=== PATIENT | female | born 1965 | race Caucasian/White ===

== ENCOUNTER 2019-04-08 13:59 | Inpatient (IN) | payer MEDICARE, SELFPAY ==
[2019-04-08] VITALS (32 sets, daily range): BP systolic 52–122; BP diastolic 28–64
[~2019-04-08] VITALS: Ht 154.9 cm; Wt 167.2 kg
[2019-04-08] MEDS ORDERED: DEXTROSE 50% 50 ML SYRINGE IV PRN (16:00)
[2019-04-08] MEDS ORDERED: GLUCOSE 4 GM CHEW TABLET PO PRN (16:00)
[2019-04-08] MEDS ORDERED: GLUCAGON FOR INJ 1 MG VIAL (J1610) SC PRN (16:00)
--- NOTE | 2019-04-08 16:33 | HPEPDOC ---
[facility] Medical History & Physical Date of Admission Apr 08, 2019 Date of Service: Apr 08, 2019 History and Physical CHIEF COMPLAINT: Shock HISTORY OF PRESENT ILLNESS: Patient is a 54-year-old female who presented to [facility] approximately 48 hours ago history is rather confusing a nd perplexed with many details Sent. It appears as though she had several presentations to the emergency room frequently transferred to [facility] where she has had the majority of her cardiac care completed. Also she recently had a pacemaker placed as well as a enterococcal bacteremia infection for which she was being treated with daptomycin with a PICC line. It appears that she was recently discharged and although a pacemaker lead was not correctly placed this was not addressed secondary to her ongoing bacteremia. She appears to complete a course of antibiotics and was seen recently for removal of her PICC line I have been told verbally that her anticoagulation was held while it was removed and since she has been on Lovenox subcutaneous injections as a bridge until she becomes therapeutic on her Coumadin once again. She reportedly presented to [facility] with abdominal pain. While there story somewhat more confusing with a dropping hemoglobin intermittent fevers hypotension leukocytosis acute renal failure prompting her transfer to our facility at this time. At the time of my visit the patient tells me that she has pain in her left lower quadrant but otherwise. denies weight loss, hair loss, headache, visual changes, chest pain, shortness of breath, cough, muscle aches, worsening arthritis, change in mood] PAST MEDICAL HISTORY: 1. Coronary artery disease Chronic chest pain with chronically elevated troponins status post recent negative cardiac cath. 2. Hypertrophic cardiomyopathy status post septal myomectomy 2. 3. Diastolic congestive heart failure. For obstructive sleep apnea and noncompliant with CPAP 5. Dyslipidemia 6. Diabetes mellitus 7 left bundle branch block 8 mechanical mitral valve replacement status post thrombosis and second mitral valve replacement with bioprosthetic valve 9 chronic kidney disease 10 asthma 11 hypertension 12 hypothyroidism 13 versus leg syndrome 14 gastroesophageal reflux disease 15 anxiety depression 16 ventral hernia 17 atrial fibrillation anticoagulated status post pacer with an appropriately placed lead 18 recent enterococcal bacteremia HOME MEDICATIONS: Please see below. ALLERGIES: Zosyn rash atropine scopolamine high ileostomy and phenobarbital Keflex Nexium morphine Lipitor doxycycline PAST SURGICAL HISTORY: 1. PICC line placement. 2. Permanent pacer placement. 3. Cholecystectomy 4. Hysterectomy 5. Bilateral ankle repair 6. Mitral valve replacement 2 7. Myomectomy 2 8, tonsil and adenoidectomy 9 cardiac stent placement 8 tracheostomy with closure 9 tibial tendon surgery SOCIAL HISTORY: Lives with: with parents, Employment: not working, Tobacco use: Former smoker 20 pack years. ETOH: Denies, Illicit drug use: Tinnitus, Tattoos done unprofessionally: Denies, CODE STATUS: full code FAMILY HISTORY:Reviewed and noncontributory REVIEW OF SYSTEMS: 10 systems reviewed and negative other than HPI PHYSICAL EXAMINATION: VITAL SIGNS: Temperature , pulse , respiratory rate , blood pressure , pulse oximetry % on room air. GENERAL: Super morbidly obese malodorous female sitting up in bed awake alert oriented speaking in complete sentences no acute distress HEENT: Moist mucous membranes difficult to assess for any elevation in CVP poor dentation CARDIOVASCULAR: S1 S2 regular no additional heart sounds appreciated. Distant secondary to body habitus RESPIRATORY: Clear to auscultation bilaterally. Very difficult to assess secondary to body habitus very distant ABDOMINAL: Bowel sounds present abdomen soft tenderness in the left lower quadrant and left flank with some discoloration, bowel sounds distant secondary to body habitus gross anasarca nystatin powder under pannus. EXTREMITIES: No clubbing cyanosis poor nail care, 3+ edema gross anasarca NEUROLOGICAL: Spontaneously moves all 4 extremities cranial 2 through 12 grossly intact no gross focal deficits appreciated PSYCHOLOGICAL: Appropriate LABORATORY DATA: See below. MICROBIOLOGY: Please see below. IMAGING: Non at our facility ASSESSMENT & PLAN: This is a 54 with female transferred from outside facility for shock. PROBLEMS: Respiratory: She is saturating well on room air.. Have any acute issue. She likely has chronic obesity hypoventilation syndrome as well as known obstructive sleep apnea and is noncompliant with CPAP. She has a history of tobacco abuse and is on inhalers at home appears to be at her baseline respiratory status at this time Infectious disease: Shock possibly secondary to sepsis she reportedly had a fever leukocytosis at the outside facility and certainly there is concern for septic shock given her recent history of enterococcus bacteremia requiring prolonged antibiotic therapy and recent discontinuation of that therapy. As such I will provide her with daptomycin and meropenem in order to cover him quite broadly we'll need to obtain the outside culture records from [facility] this we can after they've had time to grow. In the interim we will collect urine cultures here including a GI PCR panel as she did have some abdominal pain and diarrhea at the outside facility. She has been on 12 g of levophed through a peripheral IV during transport at this time we'll attempt to wean it spoken crit ical care for central venous catheter placement. Cardiovascular:Shock: Possibly multifactorial in nature she certainly has a hi story of congestive heart failure with multiple valve replacements 2 as well as hypertrophic cardiomyopathy status post myomectomy. We'll check an echocardiogram she appears be mentating quite well we'll check lactic acid as well. I feel cardiac shock is less likely.. She reportedly recently had a cardiac cath which was essentially unremarkable. She reportedly recently had permanent pacemaker placed with Aleve that is not correctly placed this was not addressed secondary to ongoing bacteremia. She has a history of atrial fibrillation and is currently anticoagulated with Lovenox and Coumadin rate controlled with metoprolol and amiodarone. However there was concern at the outside facility for ongoing bleeding. We'll check hemoglobin and hematocrit as well as INR stat, hold for DVT prophylaxis until more information can be obtained. She has a history of coronary artery disease and hypertrophic myopathy status post mastectomy 2 as well as diastolic congestive heart failure. She is certainly grossly fluid overloaded and started I suspect this is chronic given her fairly benign respiratory status will likely cor pulmonale related to her u ntreated sleep apnea. I will order an echocardiogram and consider inpatient cardiology consultation as needed. She is chronically elevated troponin as well as left bundle branch block which is old. Blood pressure readings are taken from her wrist given her morbid obesity given her good mentation slightly concerned about the accuracy of these readings are begin the weaning her Levothroid as tolerated and will monitor closely for symptoms. She would certainly benefit from diuresis should her blood pressure. Will tolerate this Heme: As outlined above I will hold pharmacological DVT prophylaxis in the setting of possible ongoing bleeding.. Leukocytosis outside facility I'll recheck a CBC here and may be related to an underlying infection. Anemia once again reported at the outside facility she reportedly received 2 units of PRBCs there have to monitor for anemia and workup anemia here if she is in fact anemic. we'll certainly need to obtain outside records from [facility]. Patient was previously on Lovenox bridge until Coumadin became therapeutic once again which she is on chronically. Also normally on aspirin 81 mg daily. There is concern for left flank hematoma I'll recheck a CT scan of the abdomen and pelvis here in our facility Metabolic: The patient reportedly had acute renal failure I suspect may be a cardiorenal syndrome given her gross anasarca baseline creatinine is report from an outside providers approximately 2.2 but she had been 4.2 of late we'll check a BMP here and see what her renal function is running. A CT scan at the outside facility did not demonstrate a documented any hydronephrosis. She is with a Berg catheter at this time. She has chronic hypothyroidism we will continue with her Synthroid. Patient has a history of gout and is normally on allopurinol which I will hold given her acute kidney injury at this time Alimentary: Patient is diabetic she is awake alert oriented I'll provide her with a consistent carb diet as well as sliding scale insulin, she did have some abdominal pain a CT of the abdomen at the outside facility did not reveal any obvious etiology she reportedly had some diarrhea previously as well we are sending a GI PCR panel will monitor her stool output I's and O's and daily weights. Chronic fatty liver as well as dyslipidemia continue with Crestor. Patient has history of gastric esophageal reflux disease and is on Protonix normally. Neurologic: No focal deficits she is awake alert oriented 3 at this time mentating quite well given her hypotension. Patient has chronic pain and is normally on Lyrica as well as OxyIR. She also has known history of restless leg and is on Requip DISPOSITION: Admitted to the medical intensive care unit inpatient status Home Medications Scheduled Diltiazem HCl (Diltiazem 12Hr ER) 60 Mg Cap.er.12h, 60 MG PO DAILY Metoprolol Succinate (Metoprolol Succinate) 50 Mg Tab.er.24h, 100 MG PO BID Scheduled PRN Oxycodone HCl (Oxycodone HCl) 5 Mg Tablet, 5 MG PO TID PRN for PAIN A-FIB/CHADSVASC A-FIB History Current/History of A-Fib/PAF?: Yes Current PO Anticoag Therapy: Yes RADHA NEWTON MD Apr 08, 2019 16:33
--- NOTE | 2019-04-08 16:40 | RO ---
DATE OF PROCEDURE: 04/08/2019 INDICATION: Vasopressor administration. PREPROCEDURE DIAGNOSIS: Septic shock. POSTPROCEDURE DIAGNOSIS: Septic shock. PROCEDURE: Central line. ATTENDING PHYSICIAN: Dr. Lona Higgins CONSENT: Verbal consent was obtained from the patient prior to procedure. Indications, risk and benefits were explained at length. DESCRIPTION OF PROCEDURE: A central line insertion practices form was completed by an independent observer, starting with the first hand wash prior to starting sterile technique. A time-out was performed. Full sterile technique was maintained throughout the procedure, including surgical cap, mask with protective eye wear, full gown and sterile gloves. The patient was placed in Trendelenburg position. The right neck region was prepped using chlorhexidine scrub and draped in a sterile fashion using a fenestrated drape and a sterile probe cover was employed. The right internal jugular (IJ) vein was identified using the ultrasound. Anesthesia was achieved over the vein using 1% lidocaine. Using real-time out of plane guidance, the introducer needle was inserted into the right IJ vein under direct ultrasound visualization. Venous blood was withdrawn. The syringe was removed, and a guidewire was advanced into the introducer needle. The introducer needle was removed over the guidewire. A small incision was made at the skin surface with a scalpel, and a dilator was exchanged over the guidewire. After appropriate dilation was obtained, the dilator was exchanged over the wire for a triple lumen central venous catheter. The wire was removed and the catheter was sutured in place at 17 cm. A sterile chlorhexidine impregnated dressing was placed over the catheter at the insertion site. The patient tolerated the procedure without any hemodynamic compromise. At the time of procedure completion, all ports aspirated and flushed properly. Postprocedure chest x-ray shows the central line with the tip in the appropriate position in the superior vena cava (SVC). There is no pneumothorax. Estimated blood loss is less than 5 mL. MTDD
[2019-04-08] MEDS ORDERED: DILT60CASR PO (16:52)
[2019-04-08] MEDS ORDERED: ENOX120I3 SC ×2 (16:52→17:32)
[2019-04-08] MEDS ORDERED: OXYC-517 PO (16:56)
[2019-04-08] MEDS ORDERED: METO1TAB7 PO (16:56)
[2019-04-08] MEDS ORDERED: diphenhydrAMINE CREAM 30GM TOP PRN (17:00)
[2019-04-08] MEDS ORDERED: PERCOCET 5MG/325MG TAB PO PRN (17:00)
[2019-04-08 17:21] LABS: ALBUMIN 1.9 GM/DL (3.2-5.2); BILIRUBIN,TOTAL 1.1 MG/DL (0.2-1.0); CALCIUM LEVEL 7.1 MG/DL (8.5-10.1); CREATININE FOR GFR 4.16 MG/DL (0.55-1.30); GLOMERULAR FILTRATION RATE 11.8 (>51); TROPONIN I 0.09 NG/ML (< 0.10)
[2019-04-08] MEDS ORDERED: NYST1POW9 TOP (17:23)
[2019-04-08] MEDS ORDERED: CYCL10TA PO (17:23)
[2019-04-08] MEDS ORDERED: ALLO100T PO (17:23)
[2019-04-08] MEDS ORDERED: CELE10TA PO (17:23)
[2019-04-08] MEDS ORDERED: LORA1TAB12 PO (17:23)
[2019-04-08] MEDS ORDERED: PANT-23 PO (17:23)
[2019-04-08] MEDS ORDERED: CURA1CRE2 TOP (17:23)
[2019-04-08] MEDS ORDERED: ONDA4TAB6 PO (17:23)
[2019-04-08] MEDS ORDERED: INSUDET SC (17:23)
[2019-04-08] MEDS ORDERED: LYRI75CA PO (17:23)
[2019-04-08] MEDS ORDERED: LEVO25TA5 PO (17:23)
[2019-04-08] MEDS ORDERED: FURO20TA2 PO ×2 (17:23)
[2019-04-08] MEDS ORDERED: ROPI1TAB PO (17:23)
[2019-04-08] MEDS ORDERED: AMIO200T PO (17:23)
[2019-04-08] MEDS ORDERED: ACIDTAB3 PO (17:23)
[2019-04-08] MEDS ORDERED: ROSU40TA4 PO (17:23)
[2019-04-08] MEDS ORDERED: WARF-58 PO (17:25)
[2019-04-08] MEDS ORDERED: ASPI81TA85 PO (17:31)
[2019-04-08] MEDS ORDERED: VENTAER INH (17:31)
[2019-04-08] MEDS ORDERED: LOVE0.01 SC (17:32)
[2019-04-08] MEDS ORDERED: VITMTA PO (17:33)
--- NOTE | 2019-04-08 18:03 | REPVR ---
EXAM: CT Abdomen and Pelvis Without Contrast EXAM DATE/TIME: 04/08/2019 4:52 PM CLINICAL HISTORY: 54 years old, female; Other: Concern for left flank hematoma; Additional info: Concern for lt flank hematoma. Best images possible due to PT body habitus TECHNIQUE: Imaging protocol: Axial computed tomography images of the abdomen and pelvis without contrast. Coronal and sagittal reformatted images were created and reviewed. Radiation optimization: All CT scans at this facility use at least one of these dose optimization techniques: automated exposure control; mA and/or kV adjustment per patient size (includes targeted exams where dose is matched to clinical indication); or iterative reconstruction. COMPARISON: No relevant prior studies available. FINDINGS: Lungs: There is bibasilar compressive atelectasis. Heart: Dense calcification of the mitral valve annulus. Liver: Normal. No mass. Gallbladder and bile ducts: There has been a cholecystectomy. Pancreas: Normal. No ductal dilation. Spleen: There is mild splenomegaly with a maximum span of 13.5 centimeters. No focal abnormalities demonstrated. Adrenals: Normal. No mass. Kidneys and ureters: Normal. No hydronephrosis. Stomach and bowel: Normal. No obstruction. No mucosal thickening. Appendix: No evidence of appendicitis. Intraperitoneal space: Normal. No free air. No significant fluid collection. Vasculature: The aorta demonstrates mild atherosclerotic calcification. Lymph nodes: Normal. No enlarged lymph nodes. Bladder: Berg catheter within urinary bladder. Reproductive: There has been a hysterectomy. Bones/joints: No acute fracture. No dislocation. Soft tissues: Ovoid hyperdense mass in the anterolateral aspect of the abdominal wall on the left measures 20 x 10 x 10 cm consistent with a acute to subacute hematoma. Exact measurement is limited as portions of the mass are excluded from the field of view. Extensive inflammatory reaction surrounds the hematoma. There is soft tissue edema demonstrated in the abdominal wall, flanks and buttock regions consistent with anasarca. Anterior margin of the left lobe of the liver protrudes through an upper abdominal hernia. IMPRESSION: 1. Ovoid hyperdense mass in the anterolateral aspect of the abdominal wall on the left measures approximately 20 x 10 x 10 cm consistent with an acute to subacute hematoma. Extensive inflammatory reaction surrounds the hematoma. 2. Anasarca. 3. Anterior margin of the left lobe of the liver protrudes through an upper abdominal hernia. 4. There is mild splenomegaly with a maximum span of 13.5 centimeters. No focal abnormalities demonstrated. 5. There has been a cholecystectomy. 6. There has been a hysterectomy. Electronically signed by: Pepito Thompson On 04/08/2019 18:02:55 PM
[2019-04-08] MEDS: HumaLOG INSULIN (NovoLOG) PER UNIT SC SCH ×2 (18:44→21:00)
[2019-04-08] MEDS: MEROPENEM INJ 1 GM in APPROPRIATE DILUENT 1 EA IV SCH (18:45)
[2019-04-08] MEDS: diphenhydrAMINE 50 MG CAP PO PRN (18:47)
--- NOTE | 2019-04-08 19:36 | CCN ---
DATE OF CONSULTATION: 04/08/2019 CHIEF COMPLAINT: Shock. HISTORY OF PRESENT ILLNESS: The patient is a 54-year-old female with a past medical history of coronary artery disease (CAD), hypertrophic cardiomyopathy status post septal myomectomy, diastolic congestive heart failure (CHF), obstructive sleep apnea (SIGIFREDO), noncompliant with continuous positive airway pressure (CPAP), hyperlipidemia, diabetes, history of mitral valve replacement, chronic kidney disease (CKD), asthma, hypertension, hypothyroidism, atrial fibrillation, on anticoagulation, history of provoked pulmonary embolism (PE), who presented initially to [facility] with a complaint of worsening abdominal pain. Patient had recently been admitted with a complaint of sepsis with vancomycin-resistant Enterococcus (VRE) bacteremia, possibly secondary to a urinary tract infection (UTI). She had been transferred to [facility], where most of her care has been. She was treated with daptomycin for enterococcal bacteremia and was discharged home. She presented to the emergency department (ED) a few days later after her discharge with complaints of chest pain with elevated troponins. She was transferred at that time to [facility] her cardiopulmonary physical therapist is associated with and she underwent a cardiac catheterization at that time. There were no stents placed reportedly. During her last admission in [facility] in February, patient also had a pacemaker and defibrillator placed prior to being discharged, and while she was readmitted at [facility] it was discovered that one of her defibrillator wires was disconnected, but because of her ongoing bacteremia, the device was not intervened on. She was discharged with a peripherally inserted central catheter (PICC) line and a continued on daptomycin for the VRE bacteremia. Patient was also discharged on lovenox injections, which she administers herself in her abdomen as well as insulin injections, which she administers in the abdomen. The patient was on the Lovenox and being transitioned to Coumadin for anticoagulation for her atrial fibrillation. The patient then started noticing complaints of increasing abdominal distension in the left lower quadrant and abdominal pain. She also reportedly had a fever of 102.4. The patient was therefore seen in the ED at [facility] and was initially given Zosyn for antibiotics, however, had a possible allergic reaction with total-body itching but no rash seen. The antibiotic was discontinued, and she was given Benadryl with improvement in her symptoms. The patient had also complained of diarrhea earlier and a history of incontinence and while she was at [facility] had a gastrointestinal (GI) panel sent. During this, the patient was also noted to have worsening anemia. Her hemoglobin was reportedly 7 from a baseline of around 10, and she was given 2 units of packed red blood cells (PRBC) without an appropriate response. She was also noted to have continued intermittent fevers as well as leukocytosis, hypotension with lactic acidosis and worsening renal failure with diffuse anasarca and edema. The patient was only given 500 mL normal saline bolus reportedly, given her fluid overload, had peripheral Levophed started for persistent hypotension, was up to apparently 15 mcg per minute. At [facility] they attempted to place a central line with attempts in the internal jugular vein, subclavian vein, and femoral vein, which were unsuccessful. She was therefore transferred with peripheral Levophed to [facility]. Here, patient continues to report some pain in her left lower quadrant but otherwise denies any nausea or vomiting. Has not had any dysuria. She does have a Berg in place. She denies having any chest pain currently. No coughing. No wheezing. She does report some increased lower extremity edema more recently. PAST MEDICAL HISTORY: 1. CAD with a history of reportedly chronically elevated troponins and status post recent cardiac catheterization. 2. Hypertrophic cardiomyopathy status post septal myomectomy times two. 3. Diastolic congestive heart failure (CHF). 4. SIGIFREDO, noncompliant with CPAP. 5. Hyperlipidemia. 6. Diabetes. 7. Left bundle branch block. 8. History of mechanical mitral valve replacement, status post thrombosis with a repeat mitral valve replacement with a bioprosthetic valve. 9. CKD. 10. Asthma. 11. Hypertension. 12. Hypothyroidism. 13. Gastroesophageal reflux disease (GERD). 14. Anxiety/depression. 15. Ventral hernia. 16. Atrial fibrillation status post pacemaker. 17. Provoked PE as per the patient in the setting of surgery. PAST SURGICAL HISTORY: 1. Pacemaker placement. 2. Cholecystectomy. 3. Hysterectomy. 4. Bilateral ankle repair. 5. Mitral valve replacement times two. 6. Myomectomy times two. 7. Tonsillectomy and adenoidectomy. 8. Previous intubation requiring tracheostomy. 8. Tracheostomy status post closure. 9. Tibial tendon surgery. ALLERGIES: ZOSYN, ATROPINE, SCOPOLAMINE, PHENOBARBITAL, KEFLEX, NEXIUM, MORPHINE, LIPITOR, and DOXYCYCLINE. HOME MEDICATIONS: Amiodarone, allopurinol, albuterol, aspirin, Celexa, cyclobenzaprine, furosemide, Levemir, Synthroid, lorazepam as needed, metoprolol, multivitamin, nystatin, Zofran as needed , Lyrica, ropinirole, rosuvastatin, Coumadin, diltiazem, pantoprazole, oxycodone as needed, Lovenox. SOCIAL HISTORY: Former smoker of 20 pack years. Denies history of alcohol use or other drug use. FAMILY HISTORY: Noncontributory. PHYSICAL EXAMINATION: Temperature 99.1, pulse 82, respirations 18, blood pressure 104/45, oxygen saturation 97% on room air. GENERAL: The patient is a morbidly obese female, lying in bed awake and alert in no acute distress and is not using accessory muscles of respiration. The patient is able to speak in complete sentences and respond to questions appropriately. HEENT: Normocephalic, atraumatic. Moist mucous membranes. Unable to appreciate jugular venous distention (JVD) due to the neck habitus. CARDIOVASCULAR: Distant heart sounds, regular rate and rhythm. Normal S1, S2. Unable to appreciate any additional heart sounds. RESPIRATIONS: Distant breath sounds due to body habitus. Clear to auscultation bilaterally anteriorly. ABDOMEN: Obese. There is some asymmetric swelling in the left lower quadrant and flank with edema and slight discoloration and tenderness to palpation. There is also some anasarca and evidence of erythema and likely fungal rash in the intertriginous regions. EXTREMITIES: There is erythema in the bilateral lower extremities with some mild increased warmth and +3 pitting edema bilaterally. There is also some exfoliation of the skin in the feet bilaterally. No blisters noted. LABORATORY DATA: CBC is pending. Chemistry shows sodium 136, potassium 5.0, chloride 102, bicarbonate 26, BUN 48, creatinine 4.16, glucose is 106, lactic acid was 2.5; reportedly at outside hospital lactic acid was in the 3's. Calcium is 7.1. Total bilirubin 1.1, AST 42, ALT 30, alkaline phosphatase is normal. Troponin 0.09. Albumin 1.9. Blood cultures are pending. IMAGING: Chest x-ray done after placement of central line shows median sternotomy wires and a left-sided pacemaker with wires in place. There is a right internal jugular (IJ) triple lumen with the tip in superior vena cava (SVC). There are some mildly increased interstitial markings bilaterally but no focal opacities. There is some atelectasis in the lower lobes bilaterally. CT abdomen and pelvis: Lung windows show atelectasis bilaterally in the lower lobes. There is a Berg catheter within the urinary bladder. There is an ovoid hyperdense mass in the anterolateral aspect of the abdominal wall on the left measuring 20 x 10 x 10 cm, consistent with an acute or subacute hematoma. There is extensive inflammatory reaction surrounding the hematoma. There is diffuse anasarca noted, and the anterior margin the left lobe of the liver protrudes through an upper abdominal hernia. There is mild splenomegaly. ASSESSMENT AND PLAN: Ms. Bergeron is a 54-year-old female with an extensive medical history, including history of hypertrophic cardiomyopathy status post myomectomy, diastolic congestive heart failure (CHF), obstructive sleep apnea (SIGIFREDO), noncompliant with CPAP, diabetes, history of mitral valve replacement with bioprosthetic valve currently, chronic kidney disease (CKD), hypertension, hypothyroidism, atrial fibrillation, on anticoagulation, a history of recent vancomycin-resistant Enterococcus (VRE) bacteremia and pacemaker placement with a disconnected lead who presented [facility] with complaints of increasing abdominal pain and swelling in the left lower quadrant and flank. The patient has been injecting herself with Lovenox as she is bridging to Coumadin for anticoagulation. The patient has developed what appears to be a hematoma in that left flank with possible localized cellulitis in that area. The patient was also noted to have worsening hypotension and anemia, requiring 2 units of PRBC with no appropriate response. The patient required Levophed for her persistent hypotension, as she also appears grossly fluid overloaded and was only given normal saline bolus of approximately 500 mL. The patient does have lactic acidosis in the setting of her shock, most likely secondary to infection, as she also presented with fevers and leukocytosis. She does have a history of urinary tract infection (UTI) and VRE bacteremia, and there is concern that she may have sepsis and possibly a component of septic shock with hypovolemic shock. The patient was also noted to have worsening acute kidney injury (LUZ) on CKD. Her reported baseline creatinine is 1.9, and recently her creatinine has increased to 4. This is likely in the setting of her shock. The patient does have a Berg and is making urine. The patient's fluid overload is likely in the setting of her chronic heart failure and possibly worsening renal failure. - The patient had a right IJ triple-lumen placed for administration of Levophed. Will continue to titrate and wean down Levophed to maintain a mean arterial pressure (MAP) above 65. - Will continue to monitor her lactic acidosis, which appears to be improving. - Would continue with broad-spectrum antibiotics given a reported history of fevers and leukocytosis. Will continue daptomycin and meropenem pending the results of her cultures. patient reportedly had a positive urine culture at [facility]. Would call hospital to follow-up results of her urine culture. - Would check a procalcitonin to trend and monitor for de-escalation of antibiotics. - The patient will likely need a PICC line placed for further venous access, as she is difficult to obtain peripheral IVs. - Will followup echocardiogram and continue to trend troponins. - Can continue with amiodarone for rate control but would hold beta blockers and other antihypertensive medications in the setting of her shock. - Will continue to monitor renal function. She is making good urine output, and so her creatinine may improve with the vasopressor support. - Will continue monitor ins and outs. - She does not have any significant acidosis or electrolyte abnormalities, and while she does appear fluid overloaded, the patient is not in any acute respiratory distress to require emergent dialysis at this time. - Would hold diuretics given her hypotension at this time but would diuresis once the patient is able to tolerate. She is currently saturating well on room air and does not appear to have significant pulmonary edema at this time. - The patient has a history of SIGIFREDO and noncompliance with CPAP. She would likely need a sleep study as an outpatient and initiation of CPAP as an outpatient for her untreated sleep apnea. - Continue to hold anticoagulation, as it reportedly is for atrial fibrillation. Her history of previous PE appeared to be provoked, and she has a bioprosthetic valve at this time. Would continue to monitor her hemoglobin and hematocrit and followup her coagulations. Would transfuse to keep hemoglobin above 7. Deep vein thrombosis (DVT) prophylaxis with sequential compression devices (SCDs). Full code. Total critical care time spent not including any procedures: Approximately 1 hour and 50 minutes. MTDD
[2019-04-08] MEDS: NOREPINEPHRINE BITARTRATE 8 MG in D5W 492 ML IV SCH (20:14)
[2019-04-08] MEDS ORDERED: hydrOXYzine 25 MG TAB PO ONE (20:45)
[2019-04-08] MEDS ORDERED: diphenhydrAMINE INJ 50MG/ML VIAL (J1200) IV ONE (21:30)
[2019-04-08] MEDS: EUCERIN 120GM CREAM TOP PRN (21:53)
[2019-04-09] VITALS (29 sets, daily range): BP systolic 85–132; BP diastolic 48–84
[2019-04-09] MEDS: diphenhydrAMINE 50 MG CAP PO PRN ×4 (00:03→23:51)
[2019-04-09] MEDS: LORazepam 1 MG TAB PO PRN ×2 (00:03→21:44)
[2019-04-09] MEDS: MEROPENEM INJ 1 GM in APPROPRIATE DILUENT 1 EA IV SCH ×3 (02:43→18:35)
[2019-04-09 02:59] LABS: HEMATOCRIT 22.2 % (36.0-47.0); MEAN CORPUSCULAR HEMOGLOBIN 27.8 pg (27.0-33.0); MEAN CORPUSCULAR HGB CONC 30.6 g/dl (32.0-36.5); MEAN CORPUSCULAR VOLUME 90.6 fl (80.0-96.0); PLATELET COUNT, AUTOMATED 196 10^3/uL (150-450); RED BLOOD COUNT 2.45 10^6/uL (4.00-5.40); WHITE BLOOD COUNT 22.1 10^3/uL (4.0-10.0)
[2019-04-09 03:01] LABS: HEMOGLOBIN 6.8 g/dl (12.0-15.5)
[2019-04-09 03:18] LABS: ALBUMIN 1.8 GM/DL (3.2-5.2); BILIRUBIN,TOTAL 1.1 MG/DL (0.2-1.0); CREATININE FOR GFR 4.03 MG/DL (0.55-1.30); GLOMERULAR FILTRATION RATE 12.3 (>51); POTASSIUM SERUM 4.8 MEQ/L (3.5-5.1); TOTAL PROTEIN 5.4 GM/DL (6.4-8.2); TROPONIN I 0.09 NG/ML (< 0.10)
[2019-04-09] MEDS ORDERED: ALBUTEROL 90 MCG/ACT 8GM HFA INHALER INH PRN (07:00)
[2019-04-09] MEDS: AMIODARONE 200 MG TAB (PACERONE) PO SCH (08:21)
[2019-04-09] MEDS: LEVOTHYROXINE 25MCG TABLET (0.025MG) PO SCH (08:22)
[2019-04-09] MEDS: HumaLOG INSULIN (NovoLOG) PER UNIT SC SCH ×4 (08:22→21:00)
[2019-04-09] MEDS: MULTIVITAMINS/MINERALS THERAP 1 TAB PO SCH (08:22)
[2019-04-09] MEDS: PREGABALIN 75 MG CAP(LYRICA) PO SCH ×2 (08:32→21:44)
[2019-04-09] MEDS: CitaloPRAM (CeleXA) 10 MG TABLET PO SCH (08:33)
[2019-04-09] MEDS: NOREPINEPHRINE BITARTRATE 8 MG in D5W 492 ML IV SCH (08:33)
[2019-04-09] MEDS: DAPTOmycin 500 MG in NS 50 ML IV SCH (08:34)
[2019-04-09] MEDS: NYSTATIN 100,000 UNITS/GM TOPICAL PWD 15 GM TOP SCH ×2 (09:00→21:44)
[2019-04-09] MEDS ORDERED: ROSUVASTATIN 10 MG TAB (CRESTOR) PO SCH (09:00)
[2019-04-09 09:47] LABS: HEMATOCRIT 23.1 % (36.0-47.0); HEMOGLOBIN 7.3 g/dl (12.0-15.5)
--- NOTE | 2019-04-09 09:58 | ECHO ---
DATE OF PROCEDURE: 04/08/2019 AGE: 54 GENDER: Female. HEIGHT: 61 inches. WEIGHT: 372 pounds. BODY SURFACE AREA: 2.45 meters squared LOCATION: Inpatient ICU, room 3202. REFERRING PHYSICIAN: Dr. Annabella Romero INDICATION: Congestive heart failure (CHF). Mitral valve disorder (post valve replacement). MEASUREMENTS 2-D MEASUREMENTS: RV - 4.4 cm LV - 4.5 cm Septum 1.2 cm Posterior wall 1.2 cm Aortic root 3.1 cm LA - 5.5 cm LVEF 55%? DOPPLER MEASUREMENTS: AV - 1.56 m/s LVOT - 0.89 m/s LVOT diameter 2.0 cm MV-E 2.0 Mean MV gradient 7 mmHg PV - 0.68 m/s Pulmonary artery acceleration time 99 ms RVSP 49 - 54 mmHg IVC - 2.2 cm COMMENTS: Sinus tachycardia with left bundle branch block. Technically difficult study in light of the patient's body habitus but some diagnostically useful information was still obtained. M-mode and two-dimensional echocardiography was performed with pulsed, continuous wave, color flow and tissue Doppler studies. Mild concentric left ventricle hypertrophy with septal wall motion abnormality, yet minimally impaired global resting systolic function. Prominently dilated left atrium. At least mildly dilated right ventricle with normal right ventricular wall motion and Doppler evidence of at least moderate pulmonary hypertension. Moderately dilated right atrium with IVC size upper limits of normal to slightly increased suggestive of an elevated central venous pressure. Aortic valvular sclerosis without obvious functional valvular abnormality. Normal aortic root size. Bioprosthetic mitral valve with visible cusp motion and no obvious valvular dysfunction. Normal appearing tricuspid valve with mild insufficiency. No separate intracardiac mass or pericardial effusion. Could not rule out a valvular vegetation in light of the technically difficult study. If endocarditis was suspect, a transesophageal echocardiogram would be necessary.
--- NOTE | 2019-04-09 09:59 | REP ---
CHEST, PORTABLE: AP portable view of the chest is performed. I have no prior study for comparison. There is cardiomegaly with vascular congestion. Increased interstitial markings probably represents mild interstitial edema. Multiple sternal wires are present. There is a left pacemaker. There is a right central venous catheter with the tip in the superior vena cava. There is no pneumothorax. Electronically Signed by Rey Narayan MD 04/11/2019 11:41 A
[2019-04-09 10:02] LABS: INR 1.32; PROTHROMBIN TIME 16.1 SECONDS (11.8-14.0)
--- NOTE | 2019-04-09 10:22 | ECGEPIP ---
[facility] Test Date: 2019-04-08 Pat Name: ABHI BARCLAY Department: Room: [place] [address] Gender: Female Senior Clinical Data Analyst: LUIS CARLOS : 1965 Requested By: RADHA NEWTON Order Number: [id number] [place] MD: Farzad Del Rosario Measurements Intervals [place] Rate: 101 P: 263 CT: 138 QRS: 4 QRSD: 174 T: 151 QT: 434 QTc: 565 Interpretive Statements Probable junctional tachycardia Low QRS complex voltage in the limb leads Left bundle branch block Comparison tracing not on file Electronically Signed on 04-09-2019 10:22:03 EDT by Farzad Del Rosario
[2019-04-09 10:45] LABS: THYROID STIMULATING HORMONE 1.68 uIU/ML (0.358-3.740)
[2019-04-09] MEDS: PERCOCET 5MG/325MG TAB PO PRN ×3 (11:03→23:51)
[2019-04-09] MEDS ORDERED: NOREPINEPHRINE BITARTRATE 8 MG in D5W 492 ML IV SCH (14:19)
--- NOTE | 2019-04-09 14:27 | CCN ---
DATE: 04/09/2019 The patient was seen and examined this morning during bedside rounds. Overnight her hemoglobin was noted to be 6.8 and the patient continued to be on Levophed for blood pressure support. Therefore, she was transfused one split unit of packed red blood cells (PRBCs) slowly to help with weaning off of the vasopressor. After her transfusion, the patient was able to be weaned down to Levophed currently at 2 mcg per minute. This morning she continues to report abdominal pain in her left lower quadrant. She denies any chest pain. No shortness of breath. No coughing or wheezing. She denies nausea or vomiting. The patient was also on nasal cannula overnight as she was noted to desaturate with sleeping. When she is awake, she is saturating 98-100% on room air. PHYSICAL EXAM: Temperature 97.9, pulse 102, respirations 18, blood pressure 103/52, O2 sat 100% on room air. Input 580 mL, output 350 mL. GENERAL: The patient is a morbidly obese female lying in bed, awake and alert, in no acute distress. Is not using accessory muscles for respiration. The patient is alert and oriented times three and able to the respond to questions appropriately. HEENT: Normocephalic, atraumatic. Moist mucous membranes. Unable to appreciate jugular venous distention (JVD) due to the neck habitus. CARDIOVASCULAR: Distant heart sounds regular rate and rhythm. Normal S1,S2. Unable to appreciate any additional heart sounds. RESPIRATIONS: Distant breath sounds due to body habitus, but clear to auscultation bilaterally. No wheezing, rales or rhonchi. ABDOMEN: Abdomen is obese. There is asymmetric swelling of the left lower quadrant and flank with edema and tenderness to palpation with some slight discoloration. There is generalized anasarca and some evidence of fungal rash in her intertriginous regions. EXTREMITIES: There is erythema in the bilateral lower extremities and +3 pitting edema bilaterally with some mildly increased warmth. LABORATORY DATA: The CBC from yesterday evening: WBC 22.1, hemoglobin 6.8, platelets 196. Repeat CBC is pending. Chemistry: Sodium is 134, potassium 4.8, chloride 101, bicarb 25, BUN 50, creatinine 4.03. Glucose is 144. Lactic acid trending down to 1.7. Total bilirubin 1.1, AST 39, ALT 29, alk phos 83, albumin is 1.8. ASSESSMENT/PLAN: Ms. Bergeron is a 54-year female with an extensive medical history including hypertrophic cardiomyopathy status post myomectomy, diastolic congestive heart failure (CHF), obstructive sleep apnea (SIGIFREDO), noncompliant with CPAP, diabetes, history of mitral valve bioprosthetic replacement, chronic kidney disease (CKD), hypertension, hypothyroidism, atrial fibrillation on anticoagulation, history of recent vancomycin-resistant enterococci (VRE) bacteremia and a pacemaker placement with a disconnected lead, who presented with increased abdominal pain and swelling in the left lower quadrant and flank. The patient was found to be hypertensive requiring vasopressor support for her blood pressure. She was also noted have fevers and leukocytosis with a possible cellulitis or versus UTI. The patient's shock is likely a combination of likely, a combination of sepsis as well as hypovolemic from blood loss. She was also found to have worsening acute kidney injury (LUZ) on and increased anasarca and edema. The patient was transferred to [facility] for further management. Overnight, she received another unit of PRBC, had previously received 2 units of PRBC at the other outside hospital. With the blood transfusion, we have been able to wean down on her Levophed to 2 mcg per minute. - Continue with the weaning down Levophed and will titrate off if possible. Will maintain a MAP above 65. - The patient's lactic acidosis has resolved currently. - Continue with broad-spectrum antibiotics with daptomycin and meropenem following the results of her blood cultures. The patient also reportedly had a positive urine culture at [facility], would call the hospital to followup the results of her urine culture. - Followup the procalcitonin and continue to trend for de-escalation of antibiotics. - Will followup echocardiogram. - Continue with amiodarone for rate control but would continue to hold beta blockers and other antihypertensive medications currently in the setting of her shock. - The patient does have evidence of fluid overload and edema. She was on 40 mg of Lasix in the morning and 20 mg in the evening at home. As her blood pressures are improved, would give the patient a dose of Lasix today for diuresis with 40 mg IV and continue to monitor her blood pressure and urine output. - Continue to monitor her renal function. The patient's creatinine is stable currently and she continues to make urine. Would continue to renally dose her medications. - Continue to monitor ins and outs. - Continue to monitor her electrolytes and replete as needed. The patient does not have any significant acidosis or electrolyte abnormality that would require emergent dialysis at this time. - The patient was noted to desaturate overnight while sleeping due to her history of SIGIRFEDO. She is not compliant with CPAP. She was given nasal cannula oxygenation overnight and in the morning when awake, she is saturating well on room air. The patient will need followup as an outpatient for sleep study if she is interested. - Continue to hold anticoagulation as it is reportedly for atrial fibrillation and with evidence of her hematoma. Would continue to followup her hemoglobin and hematocrit after her transfusion. Would transfuse to keep hemoglobin above 7. Deep venous thrombosis (DVT) prophylaxis with sequential compression stockings (SCDs). FULL CODE. Total critical care time spent not including procedures approximately 40 minutes.
[2019-04-09 17:08] LABS: HEMOGLOBIN 7.2 g/dl (12.0-15.5)
--- NOTE | 2019-04-09 17:35 | IPNPDOC ---
Date Seen The patient was seen on 04/09/19. Progress Note SUBJECTIVE: Patient is a 54-year-old female with a past medical history of coronary artery disease (CAD), hypertrophic cardiomyopathy status post septal myomectomy, diastolic congestive heart failure (CHF), SIGIFREDO, noncompliant with CPAP, history of mitral valve replacement, CKD, atrial fibrillation on anticoagulation, history of provoked PE, who presented initially to [facility] with a complaint of worsening abdominal pain. Patient was seen and examined this morning laying on her back. She is currently getting 1 packed RBC for hemoglobin was 6.8. She continues to complaints of discomfort in her lower abdomen. Currently has a Berg in place and not cloudy. Patient denies fevers chills night sweats nausea vomiting. Admits to abdominal pain. Overnight was reported patient was slightly pruritic in the lower abdomen and lower extremities, was prescribed Benadryl which provided some relief. OBJECTIVE PHYSICAL EXAMINATION: VITAL SIGNS: Please see below. GENERAL: Super morbidly obese malodorous female laying in bed awake alert oriented speaking in complete sentences no acute distress HEENT: Moist mucous membranes difficult to assess JVD and very poor dentition CARDIOVASCULAR: Distant secondary to body habitus difficult to assess. RESPIRATORY: Clear to auscultation bilaterally audible wheezing or rhonchi as well. Difficult to assess truly because of very large body habitus ABDOMINAL: soft tenderness in the left lower quadrant and left flank with some discoloration, bowel sounds distant secondary to very large body habitus, large pennculus slightly erythematous and warm. Bowel sounds distant secondary to body habitus g EXTREMITIES: No clubbing cyanosis 3+ edema gross anasarca, slightly erythematous bilaterally but nontender to touch. NEUROLOGICAL: Spontaneously moves all 4 extremities cranial 2 through 12 grossly intact no gross focal deficits appreciated PSYCHOLOGICAL: Appropriate LABORATORY DATA, IMAGING STUDIES, MICROBIOLOGY: Please see below. DVT prophylaxis ordered?:Matthieu ASSESSMENT AND PLAN: This is a 54-year-old female with a past medical history of coronary artery disease (CAD), hypertrophic cardiomyopathy status post septal myomectomy, diastolic congestive heart failure (CHF), SIGIFREDO, noncompliant with CPAP, history of mitral valve replacement, CKD, atrial fibrillation on anticoagulation, history of provoked PE, who presented initially to [facility] with a complaint of worsening abdominal pain. PROBLEMS: Shock: possible septic shock unlikely cardiogenic shock. -possibly multifactorial; history of congestive heart failure with multiple valve replacements 2 , hypertrophic cardiomyopathy status post myomectomy, cor pulmonale secondary to untreated obstructive sleep apnea and positive UTI -Leukocytosis and reported fevers at previous hospital -echocardiogram pending -Blood culture Cultures 2 pending -Urine cultures from [facility] returned positive for Klebsiella sensitive to Meropenem, faxing results -Continue meropenem and daptomycin -weaning Levothroid (maintian map >65) monitor closely for symptoms and will benefit from diuretic once weaned, possibly tomorrow Recent VRE bacteremia -Possible according in [facility]. on home daptomycin will continue -need to obtain records to verify -Continue with daptomycin until repeat blood cultures and records have been verified. UTI -Berg in place -Urine cultures from [facility] returned positive for Klebsiella sensitive to Meropenem Acute blood loss anemia possibly secondary to large hematoma in the abdomen -2 units of PRBC at [facility] -H&H recheck 6.8 this a.m. -Status post 1 unit packed RBC this a.m. -Running at a slow rate because of history of congestive heart failure -recheck Coronary artery disease Chronic chest pain with chronically elevated troponins status post recent negative cardiac cath. -Hold aspirin 81 mg Hypertrophic cardiomyopathy status post septal myomectomy 2. Diastolic congestive heart failure -unsure of baseline EF: -Hold home furosemide dose Obstructive sleep apnea -noncompliant with CPAP Dyslipidemia -Hold Rosusvastatin 40 mg daily for it interact with daptomycin Diabetes mellitus -Insulin sliding scale -FSBS ah & qhs Left bundle branch block Hx of mechanical mitral valve replacement status post thrombosis and second mitral valve replacement with bioprosthetic valve -Bridging to warfarin with Lovenox injections -Hold all anticoagulation Chronic kidney disease -baseline creatine: unsure -downtrending History of gout Hold allopurinol Asthma Hypertension -Hold home furosemide dose -Hold diltiazem extended release 60 mg by mouth daily and once pressure improve can consider restarting Hypothyroidism -c/w synthyroid 25mcg daily Restless leg syndrome -c/w Requip and Lyrica Gastroesophageal reflux disease -Help home Protonix Anxiety depression -c/w Celexa and lorazepam Hx of Ventral hernia Atrial fibrillation anticoagulated status post pacer with an appropriately placed lead -Hold anticoagulation -C/w amiodarone -Hold diltiazem extended release 60 mg by mouth daily and once pressure improve can consider restarting Obese -Morbidly obese -BMI 71.6 -Complicates care DVT prophylaxis. -TEDs and sequentials I saw and evaluated the patient. I agree with the findings and plan of care as documented in the above note VS, I&O, 24H, Fishbone Vital Signs/I&O Vital Signs Date Time Temp Pulse Resp B/P (MAP) Pulse Ox O2 Delivery O2 Flow Rate FiO2 04/09/19 11:03 20 04/09/19 08:48 97.2 101 103/53 (70) 94 04/09/19 08:00 2.0 I&O- Last 24 Hours up to 6 AM 04/09/19 06:00 Intake Total 848 ml Output Total 625 ml Balance 223 ml Laboratory Data 24H LABS Laboratory Tests 2 04/08/19 16:28: Anion Gap 8, Glomerular Filtration Rate 11.8L, Lactic Acid Level 2.5*H, Blood Urea Nitrogen 48H, Creatinine 4.16H, Sodium Level 136, Potassium Level 5.0, Chloride Level 102, Carbon Dioxide Level 26, Calcium Level 7.1L, Aspartate Amino Transf (AST/SGOT) 42H, Alanine Aminotransferase (ALT/SGPT) 30, Alkaline Phosphatase 72, Total Bilirubin 1.1H, Total Protein 5.0L, Albumin 1.9L, Troponin I 0.09, Albumin/Globulin Ratio 0.61L 04/08/19 18:35: Bedside Glucose (Misc Panel) 75 04/08/19 20:44: Troponin I 0.09, Lactic Acid Followup at 4 Hours 1.7 04/08/19 21:19: Bedside Glucose (Misc Panel) 146H 04/09/19 02:44: Nucleated Red Blood Cells % (auto) 0.4H, Anion Gap 8, Glomerular Filtration Rate 12.3L, Blood Urea Nitrogen 50H, Creatinine 4.03H, Sodium Level 134L, Potassium Level 4.8, Chloride Level 101, Carbon Dioxide Level 25, Calcium Level 7.0L, Aspartate Amino Transf (AST/SGOT) 39H, Alanine Aminotransferase (ALT/SGPT) 29, Alkaline Phosphatase 83, Total Bilirubin 1.1H, Total Protein 5.4L, Albumin 1.8L, Troponin I 0.09, Albumin/Globulin Ratio 0.50L, Thyroid Stimulating Hormone (TSH) 1.680 04/09/19 09:26: Prothrombin Time 16.1H, Prothromb Time International Ratio 1.32 04/09/19 12:04: Bedside Glucose (Misc Panel) 118H CBC/BMP Laboratory Tests 04/08/19 16:28 Calcium Level 7.1 L, Aspartate Amino Transf (AST/SGOT) 42 H, Alanine Aminotransferase (ALT/SGPT) 30, Alkaline Phosphatase 72, Total Bilirubin 1.1 H, Total Protein 5.0 L, Albumin 1.9 L 04/09/19 02:44 Calcium Level 7.0 L, Aspartate Amino Transf (AST/SGOT) 39 H, Alanine Aminotransferase (ALT/SGPT) 29, Alkaline Phosphatase 83, Total Bilirubin 1.1 H, Total Protein 5.4 L, Albumin 1.8 L, Red Blood Count 2.45 L, Mean Corpuscular Volume 90.6, Mean Corpuscular Hemoglobin 27.8, Mean Corpuscular Hemoglobin Conc ent 30.6 L, Red Cell Distribution Width 20.1 H 04/09/19 09:26 Microbiology Microbiology 04/08/19 Blood Culture, Received Pending 04/08/19 Blood Culture, Received Pending TODD AN DO Apr 09, 2019 16:31 RADHA NEWTON MD Apr 10, 2019 15:02
[2019-04-09] MEDS: rOPINIRole 1MG TAB PO SCH (21:44)
[2019-04-10] VITALS: BP 132/58
[2019-04-10 00:14] LABS: HEMATOCRIT 23.3 % (36.0-47.0); HEMOGLOBIN 7.2 g/dl (12.0-15.5)
[2019-04-10] MEDS: MEROPENEM INJ 1 GM in APPROPRIATE DILUENT 1 EA IV SCH ×3 (03:56→18:09)
[2019-04-10 04:00] VITALS: BP 103/53
[2019-04-10 04:15] LABS: HEMATOCRIT 22.7 % (36.0-47.0); MEAN CORPUSCULAR HGB CONC 30.8 g/dl (32.0-36.5); MEAN CORPUSCULAR VOLUME 90.8 fl (80.0-96.0); PLATELET COUNT, AUTOMATED 138 10^3/uL (150-450); WHITE BLOOD COUNT 14.1 10^3/uL (4.0-10.0)
[2019-04-10 04:44] LABS: ALBUMIN 1.9 GM/DL (3.2-5.2); BILIRUBIN,TOTAL 0.9 MG/DL (0.2-1.0); CALCIUM LEVEL 7.5 MG/DL (8.5-10.1); CREATININE FOR GFR 3.49 MG/DL (0.55-1.30); GLOMERULAR FILTRATION RATE 14.5 (>51); POTASSIUM SERUM 4.6 MEQ/L (3.5-5.1); TOTAL PROTEIN 5.7 GM/DL (6.4-8.2)
[2019-04-10] MEDS: LEVOTHYROXINE 25MCG TABLET (0.025MG) PO SCH (06:09)
[2019-04-10] MEDS ORDERED: FUROSEMIDE 40 MG/4 ML VIAL (J1940) IV ONE (07:15)
[2019-04-10] MEDS: diphenhydrAMINE 50 MG CAP PO PRN ×2 (07:35→20:41)
[2019-04-10] MEDS: HumaLOG INSULIN (NovoLOG) PER UNIT SC SCH ×4 (07:36→20:33)
[2019-04-10 08:00] VITALS: BP 92/66
[2019-04-10] MEDS: DAPTOmycin 500 MG in NS 50 ML IV SCH (08:38)
[2019-04-10] MEDS: CitaloPRAM (CeleXA) 10 MG TABLET PO SCH (08:38)
[2019-04-10] MEDS: MULTIVITAMINS/MINERALS THERAP 1 TAB PO SCH (08:39)
[2019-04-10] MEDS: NYSTATIN 100,000 UNITS/GM TOPICAL PWD 15 GM TOP SCH ×2 (08:39→20:42)
[2019-04-10] MEDS: PREGABALIN 75 MG CAP(LYRICA) PO SCH ×2 (08:39→20:41)
[2019-04-10] MEDS: AMIODARONE 200 MG TAB (PACERONE) PO SCH (08:39)
--- NOTE | 2019-04-10 11:54 | IPNPDOC ---
Date Seen The patient was seen on 04/10/19. Progress Note SUBJECTIVE: Patient reports to me that she is feeling significantly better today. The pain in her left flank is improving but certainly not resolved otherwise patient denies chest pain, shortness breath, nausea, vomiting, fevers, chills OBJECTIVE PHYSICAL EXAMINATION: VITAL SIGNS: Please see below GENERAL: Super morbidly obese malodorous female sitting up in bed awake alert oriented speaking in complete sentences no acute distress HEENT: Moist mucous membranes difficult to assess for any elevation in CVP poor dentation CARDIOVASCULAR: S1 S2 regular no additional heart sounds appreciated. Distant secondary to body habitus RESPIRATORY: Clear to auscultation bilaterally. Very difficult to assess secondary to body habitus very distant ABDOMINAL: Bowel sounds present abdomen soft tenderness in the left lower quadrant and left flank with some discoloration, bowel sounds distant secondary to body habitus gross anasarca. EXTREMITIES: No clubbing cyanosis poor nail care, 3+ edema, gross anasarca NEUROLOGICAL: Spontaneously moves all 4 extremities cranial 2 through 12 grossly intact no gross focal deficits appreciated PSYCHOLOGICAL: Appropriate LABORATORY DATA, MICROBIOLOGY: Please see below. IMAGING STUDIES: Chest x-ray:There is cardiomegaly with vascular congestion. Increased interstitial markings probably represents mild interstitial edema. Multiple sternal wires are present. There is a left pacemaker. There is a right central venous catheter with the tip in the superior vena cava. There is no pneumothorax. CT abdomen and pelvis:1. Ovoid hyperdense mass in the anterolateral aspect of the abdominal wall on the left measures approximately 20 x 10 x 10 cm consistent with an acute to subacute hematoma. Extensive inflammatory reaction surrounds the hematoma. 2. Anasarca. 3. Anterior margin of the left lobe of the liver protrudes through an upper abdominal hernia. 4. There is mild splenomegaly with a maximum span of 13.5 centimeters. No focal abnormalities demonstrated. 5. There has been a cholecystectomy. 6. There has been a hysterectomy. Echocardiogram: Sinus tachycardia with left bundle branch block. Technically difficult study in light of the patient's body habitus but some diagnostically useful information was still obtained. M-mode and two-dimensional echocardiography was performed with pulsed, continuo us wave, color flow and tissue Doppler studies Mild concentric left ventricle hypertrophy with septal wall motion abnormality, yet minimally impaired global resting systolic function. Prominently dilated left atrium. At least mildly dilated right ventricle with normal right ventricular wall motio n and Doppler evidence of at least moderate pulmonary hypertension. Moderately dilated right atrium with IVC size upper limits of normal to slightly increased suggestive of an elevated central venous pressure. Aortic valvular sclerosis without obvious functional valvular abnormality. Normal aortic root size. Bioprosthetic mitral valve with visible cusp motion and no obvious valvular dysfunction. Normal appearing tricuspid valve with mild insufficiency. No separate intracardiac mass or pericardial effusion. Could not rule out a valvular vegetation in light of the technically difficult study. If endocarditis was suspect, a transesophageal echocardiogram would be necessary. ASSESSMENT AND PLAN: This is a 54-year-old female who presented with shock and left flank hematoma PROBLEMS: 1. Shock: Likely septic possibly secondary to urinary source I was informed today [facility]. She also reportedly recently had hospitalization with VRE bacteremia which is an additional etiology. The time. She is on empiric daptomycin and meropenem will follow the cultures obtain records from [facility] and [facility] culture data and narrow antibiotic spectrum as appropriate. Cardiogenic shock is less likely she isn't decompensated heart failure with gross anasarca hemodynamics have stabilized she is no longer on Levophed I will begin diuresis and her critical care consult greatly appreciated. Hemorrhagic shock again less likely. To be fairly stable I'll monitor hemoglobin closely and transfuse for hemoglobin less than 7 I will hold off on any further blood products she is at 1 unit PRBCs since arriving at our facility her pain is appears to be improving clinically her hematoma is resolving albeit slowly. Patient is currently a Berg catheter will keep it in today after beginning diuresis I'll attempt to get her out of bed with PT OT transfer her to a [facility] with telemetry and ideally discontinue her Berg catheter within the next 48 hours 2. Coronary artery disease: Chronic stable no acute issues, chronically elevated troponins status post recent negative cardiac cath. We are holding aspirin 81 mg secondary to acute hematoma. She is on a statin which is currently on hold due to interaction with daptomycin. Patient with chronic left bundle-branch block 3 Hypertrophic cardiomyopathy status post septal myomectomy 2. Acceptable hemodynamics at this time 4. Acutely decompensated Diastolic congestive heart failure and I suspect mostly so right heart failure: I suspect she has significant right heart failure due to noncompliance for her sleep apnea. She is grossly anasarca take but has baseline respiratory status making we were suspicious of right heart failure over left he art failure. She does have diastolic dysfunction. We will begin diuresing her as her blood pressure and hemodynamics allow she certainly has extensive body weight due to fluid retention. 5. Obstructive sleep apnea: Patient reports she is open to be wearing CPAP at her machine is broken at home it has been broken for several years she is open having a sleep study in the future -noncompliant with CPAP 6. Dyslipidemia: As above statin on hold due to interaction with daptomycin 7. Diabetes mellitus: Insulin sliding scale, blood glucose control acceptable 8. Mitral valve disease: History of mechanical mitral valve replacement status post thrombosis and second mitral valve replacement with bioprosthetic valve. Echocardiogram does not reveal any malfunctioning of Colunga's she does not require anticoagulation for her valvular disease 9. Acute on Chronic kidney disease: Baseline is unclear reportedly closer to 2.2 Appears to be improving today we'll monitor should begin diuresis she has impr sukhwinder hemodynamics at this time 10. History of gout: Hold allopurinol in setting of a KCI 11. Asthma: At her baseline respiratory status 12. Hypertension: We'll begin IV diuresis we are holding her rate controlling agent diltiazem restart as needed and blood pressure allows 13. Hypothyroidism: c/w synthyroid 25mcg daily 14. Restless leg syndrome: c/w Requip and Lyrica 15. Gastroesophageal reflux disease: Resume home protonix 16.Anxiety depression:c/w Celexa and lorazepam 17. Atrial fibrillation anticoagulated status post pacer with an inappropriately placed lead, C/w amiodarone, Hold diltiazem extended release 60 mg by mouth daily and once blood pressure improve can consider restarting as needed. Will need outpatient follow-up regarding her pacer lead. Anticoagulation On hold at this time as outlined above 18. Morbidly obese: Complicates care DVT prophylaxis. -TEDs and sequentials DISPOSITION: Transfer out of ICU to MedSurg floor, PT OT, begin likely lengthy diuresis process. VS, I&O, 24H, Fishbone Vital Signs/I&O Vital Signs Date Time Temp Pulse Resp B/P (MAP) Pulse Ox O2 Delivery O2 Flow Rate FiO2 04/10/19 08:00 97.0 103 17 92/66 (75) 99 04/10/19 04:00 2.0 I&O- Last 24 Hours up to 6 AM 04/10/19 06:00 Intake Total 1903.2 ml Output Total 1200 ml Balance 703.2 ml Laboratory Data 24H LABS Laboratory Tests 2 04/09/19 12:04: Bedside Glucose (Misc Panel) 118H 04/09/19 16:38: Bedside Glucose (Misc Panel) 105 04/09/19 21:37: Bedside Glucose (Misc Panel) 150H 04/09/19 22:27: Urine Color YELLOW, Urine Appearance HAZY, Urine pH 5.0, Urine Specific [place] 1.013, Urine Protein NEGATIVE, Urine Glucose (UA) NEGATIVE, Urine Ketones NE GATIVE, Urine Blood NEGATIVE, Urine Nitrite NEGATIVE, Urine Bilirubin NEGATIVE, Urine Urobilinogen 0.2, Urine Leukocyte Esterase 1+H, Urine WBC (Auto) 11H, Urine RBC (Auto) 1, Urine Hyaline Casts (Auto) 0, Urine Bacteria (Auto) 1+H, Urine Squamous Epithelial Cells 0, Urine Sperm (Auto) 04/10/19 04:03: Nucleated Red Blood Cells % (auto) 0.6H, Anion Gap 6L, Glomerular Filtration Rate 14.5L, Blood Urea Nitrogen 57H, Creatinine 3.49H, Sodium Level 134L, Potassium Level 4.6, Chloride Level 100, Carbon Dioxide Level 28, Calcium Level 7.5L, Aspartate Amino Transf (AST/SGOT) 28, Alanine Aminotransferase (ALT/SGPT) 27, Alkaline Phosphatase 106, Total Bilirubin 0.9, Total Protein 5.7L, Albumin 1.9L, Albumin/Globulin Ratio 0.50L CBC/BMP Laboratory Tests 04/09/19 16:47 04/09/19 23:27 04/10/19 04:03 Red Blood Count 2.50 L, Mean Corpuscular Volume 90.8, Mean Corpuscular Hemoglobin 28.0, Mean Corpuscular Hemoglobin Concent 30.8 L, Red Cell Distribution Width 19.6 H, Calcium Level 7.5 L, Aspartate Amino Transf (AST/SGOT) 28, Alanine Aminotransferase (ALT/SGPT) 27, Alkaline Phosphatase 106, Total Bilirubin 0.9, Total Protein 5.7 L, Albumin 1.9 L Microbiology Microbiology 04/08/19 Blood Culture - Preliminary, Resulted No growth after 24 hours . All specim... 04/08/19 Blood Culture - Preliminary, Resulted No growth after 24 hours . All specim... 04/09/19 Urine Culture, Received Pending RADHA NEWTON MD Apr 10, 2019 11:54
[2019-04-10 12:00] VITALS: BP 114/60
[2019-04-10] MEDS: PERCOCET 5MG/325MG TAB PO PRN ×2 (12:00→20:42)
[2019-04-10] MEDS: PANTOPRAZOLE 40MG TAB (PROTONIX) PO SCH (12:02)
[2019-04-10 16:00] VITALS: BP 125/61
[2019-04-10] MEDS: FUROSEMIDE 40 MG/4 ML VIAL (J1940) IV SCH (16:24)
--- NOTE | 2019-04-10 17:51 | CCN ---
DATE: 04/10/2019 The patient was seen and examined this morning during bedside rounds. The patient was out of bed in the chair this morning. She denies any significant shortness of breath. No chest pain. No coughing or wheezing. She continues to have some abdominal pain in the left lower quadrant, although the pain is currently controlled. She has no nausea or vomiting. Patient is saturating well on room air, but does continue to need nasal cannula oxygen at night when she is sleeping and noted to desaturate. She is status post 1 unit of packed red blood cells (PRBC) yesterday with no appropriate response in her repeat hemoglobin. She was able to be weaned off the Levophed yesterday afternoon; however and her blood pressures have remained stable overnight. PHYSICAL EXAM: Temperature 97.7, pulse 102, respirations 20, blood pressure 103/53, oxygen saturation 96% on room air, in 1.7 liters, out 1.1 liters, positive for 546 General: The patient is a morbidly obese female, is sitting in bed awake and alert in no acute distress. Is not using accessory muscles for respiration. She is alert and oriented x3 and able to respond to questions appropriately. HEENT: Normocephalic, atraumatic. Moist mucous membranes. Unable to appreciate jugular venous distension (JVD) due to neck habitus. Cardiovascular: Distant heart sounds, regular rate and rhythm. Normal S1-S2. Unable to appreciate any additional heart sounds. Respirations: Distant breath sounds due to body habitus with possible faint crackles at the bases, but no wheezing or rhonchi. Abdomen is obese. There is anasarca and a asymmetrical swelling in her left lower quadrant with increased edema there and some tenderness to palpation. Extremities: There is +3 pitting edema in the bilateral lower extremities with some erythema noted and mildly increased warmth. LABORATORY: White blood count (WBC) 14.18, hemoglobin 7.0, platelets 138. Chemistry: Sodium is 134, potassium 4.6, chloride 100, bicarbonate 28, BUN 57, creatinine 3.49, glucose is 116. Microbiology: Urinalysis was positive for bacteria, negative for nitrates and positive for leukocyte esterase. Blood cultures are no growth to date. ASSESSMENT/PLAN: Ms. Bergeron is a 54-year-old female with a history of hypertrophic cardiomyopathy status post myomectomy diastolic congestive heart failure (CHF), obstructive sleep apnea (SIGIFREDO) noncompliant with C-PAP, diabetes, history of mitral valve bioprosthetic replacement, chronic kidney disease (CKD), hypertension, hypothyroidism, atrial fibrillation on anticoagulation, history of recent Vancomycin-resistant enterococci (VRE) bacteremia and a pacemaker placement with a disconnected lead, who presented with increased abdominal pain and swelling in her left lower quadrant and flank. The patient was hypotensive requiring vasopressor support for her blood pressure. She was also reported to have fevers and leukocytosis at an outside hospital. The patient was found to have hematoma in her left flank likely in the setting of her Lovenox injections and anticoagulation. The patient likely with a combination of septic shock and hypovolemic shock from blood loss. She was also noted to have worsening acute kidney injury on chronic kidney disease (CKD) with increased anasarca and edema. She was transferred to [facility] for further management. - The patient has been transfused a total of 3 units of PRBC now, two units at an outside hospital and one unit at [facility]. Her hemoglobin has not responded appropriately, but her blood pressures have remained stable and she has been able to be weaned off of the Levophed. - The patient's lactic acidosis has also resolved. - The patient's urine culture from the outside hospital was reportedly positive for Klebsiella pneumonia organisms. Her blood cultures there were no growth to date. The patient's repeat urine culture here is still pending. - Would continue with meropenem pending the sensitivities of Klebsiella and can likely discontinue the daptomycin. The patient likely with a urinary tract infection (UTI). - Will followup her procalcitonin and continue to trend for de-escalation of antibiotics. - The patient's echocardiogram was technically difficult due to her body habitus. She was noted to have mild left ventricular hypertrophy (LVH) with septal wall motion abnormality, but relatively preserved left ventricular systolic function. She did have probably dilated left atrium, as well as a mildly dilated right ventricle (RV) and evidence of at least moderate pulmonary hypertension. Her IVC was also dilated suggesting increased central venous pressure. - Given the patient's echocardiogram, as well as signs of fluid overload, would diurese her with Lasix and continue diuresis if her blood pressure tolerates. - Continue to monitor her input and output. - The patient's renal function is continued to improve. Will followup her renal function with diuresis. - Continue with amiodarone for rate control but will continue to hold beta hanane for now depending on her blood pressure. - Would continue to monitor her hemoglobin and hematocrit and transfuse as needed to maintain a hemoglobin above seven. Continue to hold anticoagulation for her atrial fibrillation given her hematoma. - The patient has a history of obstructive sleep apnea (SIGIFREDO) and she is noncompliant with C-PAP. She can continue with nasal cannula oxygen at night and wean off in the morning when she is awake. She will need followup as an outpatient for possible sleep study if she is interested - The patient will likely need physical therapy (PT) and occupational therapy(OT). She uses a walker at home for ambulation Deep vein thrombosis (DVT) prophylaxis with SCDs. Full code. Total critical care time spent, not including procedures, approximately 35 minutes. MTDD
[2019-04-10 18:24] LABS: HEMATOCRIT 24.7 % (36.0-47.0); HEMOGLOBIN 7.5 g/dl (12.0-15.5)
[2019-04-10 20:00] VITALS: BP 108/53
[2019-04-10] MEDS: rOPINIRole 1MG TAB PO SCH (20:41)
[2019-04-11] MEDS: MEROPENEM INJ 1 GM in APPROPRIATE DILUENT 1 EA IV SCH ×3 (03:49→20:08)
[2019-04-11 04:00] VITALS: BP 134/63
[2019-04-11] MEDS: LEVOTHYROXINE 25MCG TABLET (0.025MG) PO SCH (05:12)
[2019-04-11] MEDS: PERCOCET 5MG/325MG TAB PO PRN ×3 (05:13→20:08)
[2019-04-11 05:18] LABS: ALBUMIN 1.9 GM/DL (3.2-5.2); BILIRUBIN,TOTAL 0.9 MG/DL (0.2-1.0); CALCIUM LEVEL 8.1 MG/DL (8.5-10.1); CREATININE FOR GFR 2.91 MG/DL (0.55-1.30); GLOMERULAR FILTRATION RATE 17.9 (>51); POTASSIUM SERUM 4.7 MEQ/L (3.5-5.1)
[2019-04-11 07:01] LABS: HEMATOCRIT 23.1 % (36.0-47.0); MEAN CORPUSCULAR HEMOGLOBIN 28.3 pg (27.0-33.0); MEAN CORPUSCULAR HGB CONC 30.3 g/dl (32.0-36.5); MEAN CORPUSCULAR VOLUME 93.5 fl (80.0-96.0); PLATELET COUNT, AUTOMATED 142 10^3/uL (150-450); RED BLOOD COUNT 2.47 10^6/uL (4.00-5.40); WHITE BLOOD COUNT 14.6 10^3/uL (4.0-10.0)
[2019-04-11 08:00] VITALS: BP 116/59
[2019-04-11] MEDS: FUROSEMIDE 40 MG/4 ML VIAL (J1940) IV SCH ×2 (08:21→16:34)
[2019-04-11] MEDS: DAPTOmycin 500 MG in NS 50 ML IV SCH (08:21)
[2019-04-11] MEDS: HumaLOG INSULIN (NovoLOG) PER UNIT SC SCH ×4 (08:22→21:00)
[2019-04-11] MEDS: PREGABALIN 75 MG CAP(LYRICA) PO SCH ×2 (08:22→21:59)
[2019-04-11] MEDS: AMIODARONE 200 MG TAB (PACERONE) PO SCH (08:22)
[2019-04-11] MEDS: MULTIVITAMINS/MINERALS THERAP 1 TAB PO SCH (08:22)
[2019-04-11] MEDS: PANTOPRAZOLE 40MG TAB (PROTONIX) PO SCH (08:22)
[2019-04-11] MEDS: NYSTATIN 100,000 UNITS/GM TOPICAL PWD 15 GM TOP SCH ×2 (08:23→21:59)
[2019-04-11] MEDS: CitaloPRAM (CeleXA) 10 MG TABLET PO SCH (08:23)
[2019-04-11] MEDS: EUCERIN 120GM CREAM TOP PRN ×2 (09:26→21:59)
--- NOTE | 2019-04-11 10:02 | CCN ---
DATE OF SERVICE: 04/11/2019 The patient was seen and examined this morning during bedside rounds. The patient was sitting in a chair this morning at bedside. She denied any shortness of breath. No chest pain. No coughing or wheezing. She reports her abdominal pain in the left lower quadrant is controlled with pain medications. She has no nausea or vomiting. She did not receive any further transfusion yesterday. Her blood pressures have remained stable. PHYSICAL EXAMINATION: Temperature 98.3, pulse 100, respirations 24, blood pressure 116/59, O2 sat 96% on room air. Ins 2.9 liters and out 2.5 liters, net positive approximately 300 mL. General: The patient is a morbidly obese female who is sitting in the chair awake, alert and in no acute distress. She is not using any accessory muscles for respiration. HEENT: Normocephalic, atraumatic. Moist mucous membranes. Unable to appreciate jugular venous distention (JVD) due to neck habitus. Cardiovascular: Distant heart sounds, regular rate and rhythm. Normal S1 and S2. Unable appreciate any additional heart sounds. Respirations: She had distant breath sounds due to body habitus with possible faint crackles at the bases, but no wheezing or rhonchi. Abdomen is obese. There is anasarca with increased pitting edema and tenderness on the left lower quadrant with some slightly asymmetrical appearance Extremities: There is +3 to 4 pitting edema in the bilateral lower extremities with erythema noted bilaterally. LABORATORY DATA: WBC 14.6, hemoglobin 7.0 and platelets 142. Chemistry: Sodium is 137, potassium 4.7, chloride is 101, bicarb 28, BUN 51, creatinine 2.91, glucose is 131. Microbiology: Urine culture is pending. Blood cultures are no growth to date. ASSESSMENT/PLAN: Ms. Bergeron is a 54-year female with history of hypertrophic cardiomyopathy status post myomectomy, diastolic congestive heart failure (CHF), obstructive sleep apnea (SIGIFREDO) noncompliant C-PAP, diabetes, history of mitral valve bioprosthetic replacement, chronic kidney disease (CKD), hypertension, hypothyroidism, atrial fibrillation on anticoagulation, history of recent vancomycin-resistant Enterococcus (VRE) bacteremia and pacemaker placement with a disconnected lead, who presented initially to an outside hospital with increased abdominal pain and swelling in her left lower quadrant and flank. The patient was hypotensive, in shock, requiring vasopressor support. She was reportedly found to have fevers and leukocytosis at the outside hospital as well as with a positive urine culture. The patient had also been giving herself Lovenox injections for anticoagulation in the left flank and she likely had a component of hypovolemic shock from blood loss combined with septic shock, possibly secondary to urinary tract infection (UTI). The patient was also found to have worsening acute kidney injury (LUZ) on CKD with increased anasarca and edema. She was transferred to [facility] for further management. - The patient is status post a total of 3 units of packed red blood cell (PRBC). Her hemoglobin has remained stable around 7 and she had been able to been weaned off of vasopressors. - Will continue to monitor her hemoglobin/hematocrit (H/H) and transfuse as needed for hemoglobin above 7. - The patient's anticoagulation is on hold. She was anticoagulated for her atrial fibrillation. She does have a previous history of pulmonary embolism (PE), but it appears to be a provoked PE. Her mitral valve is also a bioprosthetic valve. - Continue antibiotics with meropenem. The patient's outside urine culture reportedly grew Klebsiella, the sensitivities we are still awaiting the results of. Would likely be able to discontinue the daptomycin as her blood cultures at the outside hospital were also negative and suspect the patient had completed her course of antibiotics for her VRE bacteremia as her peripherally inserted central catheter (PICC) line had been removed prior to her rehospitalization. - The patient's procalcitonin was very high however at 56.45. Would continue to trend and monitor for response to antibiotics and for de-escalation. - The patient was given Lasix yesterday 40 mg IV twice a day for diuresis as she is fluid overloaded on exam and her echo on this admission did show dilated inferior vena cava (IVC) suggesting increased central venous pressure as well as evidence of at least moderate pulmonary hypertension. - Would continue with diuresis. Would likely increase her Lasix as she is still not significantly net negative. - The patient's renal function is continuing to improve. Would continue to follow up her renal function and monitor her ins and outs. - Would give the patient incentive spirometer and continue to encourage out of bed to chair. She will likely need physical therapy for ambulation as she uses a walker at home as well. - The patient is satting well on room air when awake and reportedly desaturates at night, likely due to her history of untreated SIGIFREDO. She can follow up with pulmonary as an outpatient for possible sleep study if she is interested - The patient is planned for PICC line today for venous access, after PICC line placement would be able to remove her central line. DEEP VEIN THROMBOSIS (DVT) PROPHYLAXIS: Sequential compression devices (SCDs). Full code. Total critical care time spent, not including procedures approximately 35 minutes. Please do not hesitate to call if any further questions or concerns. MTDD
[2019-04-11 12:00] VITALS: BP 105/58
[2019-04-11 16:00] VITALS: BP 111/62
--- NOTE | 2019-04-11 17:58 | IPNPDOC ---
Date Seen The patient was seen on 04/11/19. Progress Note SUBJECTIVE: Patient is a 54-year-old female with a past medical history of coronary artery disease (CAD), hypertrophic cardiomyopathy status post septal myomectomy, diastolic congestive heart failure (CHF), SIGIFREDO, noncompliant with CPAP, history of mitral valve replacement, CKD, atrial fibrillation on anticoagulation, history of provoked PE, who presented initially to [facility] with a complaint of worsening abdominal pain. Patient was seen and examined this morning adding on her commode. She states that she's feeling significantly better. Her abdominal pain has improved as well. She does complain of the itching on her abdomen and legs but is not a significant when she originally came in. She denies chest pain, shortness breath, nausea, vomiting, fevers or chills. OBJECTIVE PHYSICAL EXAMINATION: VITAL SIGNS: Please see below. GENERAL: Super morbidly obese malodorous female laying in bed awake alert oriented speaking in complete sentences no acute distress HEENT: Moist mucous membranes difficult to assess JVD and very poor dentition CARDIOVASCULAR: Distant secondary to body habitus difficult to assess. RESPIRATORY: Clear to auscultation bilaterally audible wheezing or rhonchi as well. Difficult to assess truly because of very large body habitus ABDOMINAL: soft tenderness in the left lower quadrant and left flank with some discoloration, bowel sounds distant secondary to very large body habitus, large pennculus slightly erythematous and warm. Bowel sounds distant secondary to body habitus g EXTREMITIES: No clubbing cyanosis 3+ edema gross anasarca, slightly erythematous bilaterally but nontender to touch. NEUROLOGICAL: Spontaneously moves all 4 extremities cranial 2 through 12 grossly intact no gross focal deficits appreciated PSYCHOLOGICAL: Appropriate LABORATORY DATA, IMAGING STUDIES, MICROBIOLOGY: Please see below. Echocardiogram: Dr. Grewal 04/08/2019 Sinus tachycardia with left bundle branch block. Technically difficult study in light of the patient's body habitus but some diagnostically useful information was still obtained. M-mode and two-dimensional echocardiography was performed with pulsed, continuous wave, color flow and tissue Doppler studies. Mild concentric left ventricle hypertrophy with septal wall motion abnormality, yet minimally impaired global resting systolic function. Prominently dilated left atrium. At least mildly dilated right ventricle with normal right ventricular wall motion and Doppler evidence of at least moderate pulmonary hypertension. Moderately dilated right atrium with IVC size upper limits of normal to slightly increased suggestive of an elevated central venous pressure. Aortic valvular sclerosis without obvious functional valvular abnormality. Normal aortic root size. Bioprosthetic mitral valve with visible cusp motion and no obvious valvular dysfunction. Normal appearing tricuspid valve with mild insufficiency. No separate intracardiac mass or pericardial effusion. Could not rule out a valvular vegetation in light of the technically difficult study. If endocarditis was suspect, a transesophageal echocardiogram would be necessary. DVT prophylaxis ordered?:Matthieu ASSESSMENT AND PLAN: This is a 54-year-old female with a past medical history of coronary artery disease (CAD), hypertrophic cardiomyopathy status post septal myomectomy, diastolic congestive heart failure (CHF), SIGIFREDO, noncompliant with CPAP, history of mitral valve replacement, CKD, atrial fibrillation on anticoagulation, history of provoked PE, who presented initially to [facility] with a complaint of worsening abdominal pain. PROBLEMS: Shock: possible septic shock vs hemorrhagic shock unlikely cardiogenic shock. -possibly multifactorial; history of congestive heart failure with multiple valve replacements 2 , hypertrophic cardiomyopathy status post myomectomy, cor pulmonale secondary to untreated obstructive sleep apnea and positive UTI -Leukocytosis and reported fevers at previous hospital -echocardiogram above -Blood culture Cultures 2 negative -Urine cultures from [facility] returned positive for Klebsiella sensitive to Meropenem, awaiting sensitivities be faxed -Continue meropenem, (penicillin allergy) 14 days (04/21), discontinue daptomycin Recent VRE bacteremia prior to admission (resolved) -Discontinue daptomycin -repeat blood cultures 2 negative. UTI -Discontinue Berg -Urine cultures from [facility] returned positive for Klebsiella sensitive to Meropenem, awaiting sensitivities be faxed Acute blood loss anemia possibly secondary to large hematoma in the abdomen -s/p 2 units of PRBC at [facility], 1 unit PRBC at [facility] -Stable continue to monitor. Coronary artery disease Chronic chest pain with chronically elevated troponins status post recent negative cardiac cath. -Hold aspirin 81 mg Hypertrophic cardiomyopathy status post septal myomectomy 2. Diastolic congestive heart failure -unsure of baseline EF: -Hold home furosemide dose Obstructive sleep apnea -noncompliant with CPAP -States its broken Dyslipidemia -Restart Rosusvastatin 40 mg daily Diabetes mellitus -Insulin sliding scale -FSBS ah & qhs Left bundle branch block Hx of mechanical mitral valve replacement status post thrombosis and second mitral valve replacement with bioprosthetic valve -Bridging to warfarin with Lovenox injections -Hold all anticoagulation at this current time Acute on Chronic kidney disease -baseline creatine: unsure, is likely close to 2.2 -downtrending, monitor for we are actively diuresing her now History of gout Hold allopurinol due to LUZ Asthma -Baseline and stable. Hypertension -c/w Forsemide 40 mg twice a day -Hold diltiazem extended release 60 mg by mouth daily and once pressure improve can consider restarting Hypothyroidism -c/w synthyroid 25mcg daily Restless leg syndrome -c/w Requip and Lyrica Gastroesophageal reflux disease -Continue home Protonix Anxiety depression -c/w Celexa and lorazepam Hx of Ventral hernia Atrial fibrillation anticoagulated status post pacer with an appropriately placed lead -Hold anticoagulation -C/w amiodarone -Is clinically stable, can consider transferring the patient to [facility] regarding her pacer lead if needed. Obese -Morbidly obese -BMI 71.6 -Complicates care DVT prophylaxis. -TEDs and sequentials I saw and evaluated the patient. I agree with the findings and plan of care as documented in the above note VS, I&O, 24H, Fishbone Vital Signs/I&O Vital Signs Date Time Temp Pulse Resp B/P (MAP) Pulse Ox O2 Delivery O2 Flow Rate FiO2 04/11/19 17:24 98.3 102 18 93 04/11/19 16:00 111/62 (78) 04/10/19 04:00 2.0 I&O- Last 24 Hours up to 6 AM 04/11/19 06:00 Intake Total 2905 ml Output Total 2665 ml Balance 240 ml Laboratory Data 24H LABS Laboratory Tests 2 04/10/19 20:30: Bedside Glucose (Misc Panel) 155H 04/11/19 04:45: Nucleated Red Blood Cells % (auto) 1.6H, Anion Gap 8, Glomerular Filtration Rate 17.9L, Blood Urea Nitrogen 51H, Creatinine 2.91H, Sodium Level 137, Potassium Level 4.7, Chloride Level 101, Carbon Dioxide Level 28, Calcium Level 8.1L, Aspartate Amino Transf (AST/SGOT) 32, Alanine Aminotransferase (ALT/SGPT) 25, Alkaline Phosphatase 133H, Total Bilirubin 0.9, Total Protein 6.0L, Albumin 1.9L, Albumin/Globulin Ratio 0.46L 04/11/19 11:48: Bedside Glucose (Misc Panel) 128H 04/11/19 16:29: Bedside Glucose (Misc Panel) 142H CBC/BMP Laboratory Tests 04/10/19 18:10 04/11/19 04:45 Red Blood Count 2.47 L, Mean Corpuscular Volume 93.5, Mean Corpuscular Hemoglobin 28.3, Mean Corpuscular Hemoglobin Concent 30.3 L, Red Cell Distribution Width 20.0 H, Calcium Level 8.1 L, Aspartate Amino Transf (AST/SGOT) 32, Alanine Aminotransferase (ALT/SGPT) 25, Alkaline Phosphatase 133 H, Total Bilirubin 0.9, Total Protein 6.0 L, Albumin 1.9 L Microbiology Microbiology 04/08/19 Blood Culture - Preliminary, Resulted No Growth after 48 hours. All Specime... 04/08/19 Blood Culture - Preliminary, Resulted No Growth after 72 hours. All specime... 04/09/19 Urine Culture, Received Pending TODD AN DO Apr 11, 2019 17:58 RADHA NEWTON MD Apr 14, 2019 13:52
[2019-04-11] MEDS ORDERED: LIDOCAINE 1% MDV 20ML VIAL As Ordered ONE (18:08)
[2019-04-11 18:55] VITALS: BP 125/77
[2019-04-11] MEDS: rOPINIRole 1MG TAB PO SCH (21:59)
[2019-04-11 22:00] VITALS: BP 122/72
[2019-04-12] MEDS ORDERED: SODIUM CHLORIDE 0.9% INJ 10 ML SYR IV PRN (01:30)
[2019-04-12] MEDS: MEROPENEM INJ 1 GM in APPROPRIATE DILUENT 1 EA IV SCH ×3 (03:06→18:00)
[2019-04-12] MEDS: SODIUM CHLORIDE 0.9% INJ 10 ML SYR IV SCH ×2 (05:28→13:25)
[2019-04-12 05:53] LABS: HEMATOCRIT 23.6 % (36.0-47.0); HEMOGLOBIN 7.1 g/dl (12.0-15.5); MEAN CORPUSCULAR HEMOGLOBIN 28.5 pg (27.0-33.0); MEAN CORPUSCULAR HGB CONC 30.1 g/dl (32.0-36.5); MEAN CORPUSCULAR VOLUME 94.8 fl (80.0-96.0); PLATELET COUNT, AUTOMATED 168 10^3/uL (150-450); RED BLOOD COUNT 2.49 10^6/uL (4.00-5.40); WHITE BLOOD COUNT 17.1 10^3/uL (4.0-10.0)
[2019-04-12] MEDS: LEVOTHYROXINE 25MCG TABLET (0.025MG) PO SCH (05:56)
[2019-04-12 06:00] VITALS: BP 125/70
[2019-04-12 06:10] LABS: ALBUMIN 2.1 GM/DL (3.2-5.2); CALCIUM LEVEL 7.9 MG/DL (8.5-10.1); CREATININE FOR GFR 2.23 MG/DL (0.55-1.30); GLOMERULAR FILTRATION RATE 24.3 (>51); POTASSIUM SERUM 4.6 MEQ/L (3.5-5.1); TOTAL PROTEIN 5.6 GM/DL (6.4-8.2)
[2019-04-12] MEDS: HumaLOG INSULIN (NovoLOG) PER UNIT SC SCH ×4 (07:30→21:00)
[2019-04-12] MEDS: ROSUVASTATIN 10 MG TAB (CRESTOR) PO SCH (09:09)
[2019-04-12] MEDS: FUROSEMIDE 40 MG/4 ML VIAL (J1940) IV SCH ×2 (09:09→17:58)
[2019-04-12] MEDS: PANTOPRAZOLE 40MG TAB (PROTONIX) PO SCH (09:10)
[2019-04-12] MEDS: CitaloPRAM (CeleXA) 10 MG TABLET PO SCH (09:10)
[2019-04-12] MEDS: MULTIVITAMINS/MINERALS THERAP 1 TAB PO SCH (09:10)
[2019-04-12] MEDS: PERCOCET 5MG/325MG TAB PO PRN ×3 (09:12→22:57)
[2019-04-12] MEDS: AMIODARONE 200 MG TAB (PACERONE) PO SCH (09:13)
[2019-04-12] MEDS: PREGABALIN 75 MG CAP(LYRICA) PO SCH ×2 (09:13→21:03)
[2019-04-12] MEDS: NYSTATIN 100,000 UNITS/GM TOPICAL PWD 15 GM TOP SCH ×2 (09:13→21:03)
--- NOTE | 2019-04-12 10:39 | IPNPDOC ---
Date Seen The patient was seen on 04/12/19. Progress Note SUBJECTIVE: Patient is a 54-year-old female with a past medical history of coronary artery disease (CAD), hypertrophic cardiomyopathy status post septal myomectomy, diastolic congestive heart failure (CHF), SIGIFREDO, noncompliant with CPAP, history of mitral valve replacement, CKD, atrial fibrillation on anticoagulation, history of provoked PE, who presented initially to [facility] with a complaint of worsening abdominal pain. Patient states overall she is feeling about the same as yesterday, which is a significant improvement from when she arrived to the hospital. She states she does have persistent pain in her lower left abdomen where the hematoma is present. However, she feels this has been fairly stable and bothers her most when she is moving around. She also states she continues to have some shortness of breath when she is up moving around, but otherwise feels that her breathing is at baseline when she is at rest. She does continue to have some itching on her abdomen and legs, but states that the cream helps a lot with that and that she will ask her Benadryl when she needs additional treatment. She denies fevers, chills, chest pain, nausea, vomiting, diarrhea. OBJECTIVE: PHYSICAL EXAMINATION: VITAL SIGNS: Please see below. GENERAL: Morbidly obese, alert, comfortable, laying in bed, no acute distress HEENT: PERRLA, EOMI, Moist mucous membranes, unable to assess for JVD due to body habitus CARDIOVASCULAR: Distant heart sounds, difficult to assess secondary to body habitus RESPIRATORY: Distant breath sounds bilaterally due to body habitus with crackles at the bases, no wheezing or rhonchi auscultated. ABDOMINAL: Morbidly obese, anasarca and pitting edema along the lower left quadrant with some erythema, warmth, and discoloration, tenderness along the lower left quadrant, bowel sounds present. Other than the area of firmness where anasarca is present, the abdomen is soft. EXTREMITIES: No cyanosis, 3+ pitting edema in bilateral lower extremities with anasarca under the thighs. Calves are nontender. NEUROLOGICAL: Alert and oriented 3 to person, place and time, cranial nerves II-XII grossly intact, no focal deficits appreciated PSYCHOLOGICAL: Mood and affect normal LABORATORY DATA, IMAGING STUDIES, MICROBIOLOGY: Please see below. Echocardiogram: Dr. Grewal 04/08/2019 Sinus tachycardia with left bundle branch block. Technically difficult study in light of the patient's body habitus but some diagnostically useful information was still obtained. M-mode and two-dimensional echocardiography was performed with pulsed, continuous wave, color flow and tissue Doppler studies. Mild concentric left ventricle hypertrophy with septal wall motion abnormality, yet minimally impaired global resting systolic function. Prominently dilated left atrium. At least mildly dilated right ventricle with normal right ventricular wall motion and Doppler evidence of at least moderate pulmonary hypertension. Moderately dilated right atrium with IVC size upper limits of normal to slightly increased suggestive of an elevated central venous pressure. Aortic valvular sclerosis without obvious functional valvular abnormality. Normal aortic root size. Bioprosthetic mitral valve with visible cusp motion and no obvious valvular dysfunction. Normal appearing tricuspid valve with mild insufficiency. No separate intracardiac mass or pericardial effusion. Could not rule out a valvular vegetation in light of the technically difficult study. If endocarditis was suspect, a transesophageal echocardiogram would be necessary. ASSESSMENT AND PLAN: This is a 54-year-old female with a past medical history of coronary artery disease (CAD), hypertrophic cardiomyopathy status post septal myomectomy, diastolic congestive heart failure (CHF), SIGIFREDO, noncompliant with CPAP, history of mitral valve replacement, CKD, atrial fibrillation on anticoagulation, history of provoked PE, who presented initially to [facility] with a complaint of worsening abdominal pain. PROBLEMS: 1. Shock: possible septic shock vs hemorrhagic shock unlikely cardiogenic shock. -possibly multifactorial; history of congestive heart failure with multiple valve replacements 2 , hypertrophic cardiomyopathy status post myomectomy, cor pulmonale secondary to untreated obstructive sleep apnea and positive UTI -Leukocytosis and reported fevers at previous hospital -echocardiogram above -Blood culture Cultures 2 negative -Urine cultures from [facility] returned positive for Klebsiella sensitive to Meropenem, awaiting sensitivities be faxed -Continue meropenem, (penicillin allergy) 14 days (04/21), discontinued daptomycin PICC placement was attempted on 04/11, however, it was unable to be placed. Plan to try again today. If PICC is successfully placed, will discontinue central line. 2. Recent VRE bacteremia prior to admission (resolved) -Discontinue daptomycin -repeat blood cultures 2 negative. 3. UTI -Discontinue Berg -Urine cultures from [facility] returned positive for Klebsiella sensitive to Meropenem, awaiting sensitivities be faxed 4. Acute blood loss anemia possibly secondary to large hematoma in the abdomen -s/p 2 units of PRBC at [facility], 1 unit PRBC at [facility] -Stable, continue to monitor. 5. CAD, stable chronic chest pain chronically elevated troponins recent negative cardiac cath. -Hold aspirin 81 mg due to acute hematoma 6. Hypertrophic cardiomyopathy status post septal myomectomy 2. Hemodynamically stable at this time 7. Acutely decompensated diastolic congestive heart failure. -unsure of baseline EF. Continue diuresis with furosemide and monitor I/O. Fluid restriction to 1800mL 8. Obstructive sleep apnea -noncompliant with CPAP, states its broken 9. Dyslipidemia -Rosuvastatin 40 mg daily 10. Diabetes mellitus -Insulin sliding scale -FSBS ah & qhs 11. Hx of mechanical mitral valve replacement s/p thrombosis and second mitral valve replacement with bioprosthetic valve -Previously bridging to warfarin with Lovenox injections -Hold all anticoagulation at this current time due to acute hematoma 12. Acute on Chronic kidney disease -baseline creatine: unsure, is likely close to 2.2 -Continues to trend down, we are actively diuresing her now, continue to monitor 13. History of gout Hold allopurinol due to LUZ 14. Asthma -Baseline and stable 15. Hypertension -Continue Furosemide 40 mg twice a day -Hold diltiazem ER 60 mg, can consider restarting once blood pressures improve 16. Hypothyroidism -Continue synthyroid 25mcg daily 17. Restless leg syndrome -Continue Requip and Lyrica 18. Gastroesophageal reflux disease -Continue home Protonix 19. Anxiety depression -Continue Celexa and lorazepam 20. Atrial fibrillation anticoagulated status post pacer with an inappropriately placed lead -Hold anticoagulation due to acute hematoma -Continue amiodarone -Is clinically stable, can consider transferring the patient to [facility] regarding her pacer lead if needed. Otherwise she will need outpatient follow-up regarding the pacer lead. 21. Morbidly obese -BMI 71.6, Complicates care 22. DVT prophylaxis. -TEDs and sequentials DISPOSITION: Inpatient med/surge, pending PICC placement I saw and evaluated the patient. I agree with the findings and plan of care as documented in the above note VS, I&O, 24H, Fishbone Vital Signs/I&O Vital Signs Date Time Temp Pulse Resp B/P (MAP) Pulse Ox O2 Delivery O2 Flow Rate FiO2 8/13/19 09:12 115 16 123/69 04/12/19 06:00 98.0 91 04/11/19 18:42 2.0 I&O- Last 24 Hours up to 6 AM 04/12/19 06:00 Intake Total 2157 ml Output Total 1800 ml Balance 357 ml Laboratory Data 24H LABS Laboratory Tests 2 04/11/19 11:48: Bedside Glucose (Misc Panel) 128H 04/11/19 16:29: Bedside Glucose (Misc Panel) 142H 04/11/19 20:31: Bedside Glucose (Misc Panel) 168H 04/12/19 05:32: Nucleated Red Blood Cells % (auto) 2.8H, Anion Gap 8, Glomerular Filtration Rate 24.3L, Blood Urea Nitrogen 41H, Creatinine 2.23H, Sodium Level 138, Potassium Level 4.6, Chloride Level 102, Carbon Dioxide Level 28, Calcium Level 7.9L, Aspartate Amino Transf (AST/SGOT) 35, Alanine Aminotransferase (ALT/SGPT) 25, Alkaline Phosphatase 160H, Total Bilirubin 1.0, Total Protein 5.6L, Albumin 2.1L, Albumin/Globulin Ratio 0.60L CBC/BMP Laboratory Tests 04/12/19 05:32 Red Blood Count 2.49 L, Mean Corpuscular Volume 94.8, Mean Corpuscular Hemoglobin 28.5, Mean Corpuscular Hemoglobin Concent 30.1 L, Red Cell Distribution Width 21.0 H, Calcium Level 7.9 L, Aspartate Amino Transf (AST/SGOT) 35, Alanine Aminotransferase (ALT/SGPT) 25, Alkaline Phosphatase 160 H, Total Bilirubin 1.0, Total Protein 5.6 L, Albumin 2.1 L Microbiology Microbiology 04/08/19 Blood Culture - Preliminary, Resulted No Growth after 72 hours. All specime... 04/08/19 Blood Culture - Preliminary, Resulted No Growth after 72 hours. All specime... 04/09/19 Urine Culture, Received Pending JEFFERY PHILLIPS PGY-1 Apr 12, 2019 10:39 RADHA NEWTON MD Apr 16, 2019 16:11
[2019-04-12 14:00] VITALS: BP 120/56
[2019-04-12] MEDS: rOPINIRole 1MG TAB PO SCH (21:03)
[2019-04-12] MEDS: EUCERIN 120GM CREAM TOP PRN (21:11)
[2019-04-12 22:00] VITALS: BP 112/52
[2019-04-13] MEDS: FUROSEMIDE 40 MG/4 ML VIAL (J1940) IV SCH ×4 (00:11→18:45)
[2019-04-13] MEDS: MEROPENEM INJ 1 GM in APPROPRIATE DILUENT 1 EA IV SCH ×3 (03:19→18:42)
[2019-04-13] MEDS: LEVOTHYROXINE 25MCG TABLET (0.025MG) PO SCH (05:55)
[2019-04-13 06:00] VITALS: BP 115/62
[2019-04-13 07:00] LABS: HEMATOCRIT 24.4 % (36.0-47.0); HEMOGLOBIN 7.2 g/dl (12.0-15.5); MEAN CORPUSCULAR HEMOGLOBIN 28.7 pg (27.0-33.0); MEAN CORPUSCULAR HGB CONC 29.5 g/dl (32.0-36.5); MEAN CORPUSCULAR VOLUME 97.2 fl (80.0-96.0); PLATELET COUNT, AUTOMATED 178 10^3/uL (150-450); RED BLOOD COUNT 2.51 10^6/uL (4.00-5.40); WHITE BLOOD COUNT 15.9 10^3/uL (4.0-10.0)
[2019-04-13 07:08] LABS: ALBUMIN 2.1 GM/DL (3.2-5.2); BILIRUBIN,TOTAL 1.4 MG/DL (0.2-1.0); CALCIUM LEVEL 8.3 MG/DL (8.5-10.1); CREATININE FOR GFR 1.95 MG/DL (0.55-1.30); GLOMERULAR FILTRATION RATE 28.4 (>51); POTASSIUM SERUM 3.9 MEQ/L (3.5-5.1); TOTAL PROTEIN 6.2 GM/DL (6.4-8.2)
[2019-04-13] MEDS: HumaLOG INSULIN (NovoLOG) PER UNIT SC SCH ×4 (07:30→20:52)
[2019-04-13] MEDS: MULTIVITAMINS/MINERALS THERAP 1 TAB PO SCH (08:46)
[2019-04-13] MEDS: PANTOPRAZOLE 40MG TAB (PROTONIX) PO SCH (08:46)
[2019-04-13] MEDS: CitaloPRAM (CeleXA) 10 MG TABLET PO SCH (08:46)
[2019-04-13] MEDS: ROSUVASTATIN 10 MG TAB (CRESTOR) PO SCH (08:46)
[2019-04-13] MEDS: AMIODARONE 200 MG TAB (PACERONE) PO SCH (08:46)
[2019-04-13] MEDS: PREGABALIN 75 MG CAP(LYRICA) PO SCH ×2 (08:46→21:01)
[2019-04-13] MEDS: NYSTATIN 100,000 UNITS/GM TOPICAL PWD 15 GM TOP SCH ×2 (08:47→21:02)
[2019-04-13] MEDS: PERCOCET 5MG/325MG TAB PO PRN ×3 (08:47→21:03)
--- NOTE | 2019-04-13 09:53 | IPNPDOC ---
Date Seen The patient was seen on 04/13/19. Progress Note SUBJECTIVE: Patient is a 54-year-old female with a past medical history of coronary artery disease (CAD), hypertrophic cardiomyopathy status post septal myomectomy, diastolic congestive heart failure (CHF), SIGIFREDO, noncompliant with CPAP, history of mitral valve replacement, CKD, atrial fibrillation on anticoagulation, history of provoked PE, who presented initially to [facility] with a complaint of worsening abdominal pain. Patient was seen and examined in her room today sitting up in a chair. states she is feeling slightly improved from yesterday, but not significantly. However, her overall condition does feel significantly improved from when she passed to the hospital. She states she continues to have shortness of breath which is worse when she is up walking around. She also continues to have left sided abdominal pain where her hematoma is present. She reports the swelling in her legs feels like it is at about the same level as it has been. She denies fevers, chills, chest pain, nausea, vomiting, diarrhea. OBJECTIVE: PHYSICAL EXAMINATION: VITAL SIGNS: Please see below. GENERAL: Morbidly obese, alert, comfortable, sitting up in chair, no acute distress HEENT: PERRLA, EOMI, Moist mucous membranes, unable to assess for JVD due to body habitus CARDIOVASCULAR: Distant heart sounds, difficult to assess secondary to body habitus RESPIRATORY: Distant breath sounds bilaterally due to body habitus with crackles at the bases, no wheezing or rhonchi auscultated. ABDOMINAL: Morbidly obese, anasarca and pitting edema along the lower left quadrant with some erythema, warmth, and discoloration, tenderness along the lower left quadrant, bowel sounds present. Other than the area of firmness where anasarca is present, the abdomen is soft. EXTREMITIES: No cyanosis, 3+ pitting edema in bilateral lower extremities with anasarca under the thighs. Calves are nontender. NEUROLOGICAL: Alert and oriented 3 [address] person, place and time, cranial nerves II-XII grossly intact, no focal deficits appreciated PSYCHOLOGICAL: Mood and affect normal LABORATORY DATA, IMAGING STUDIES, MICROBIOLOGY: Please see below. Echocardiogram: Dr. Grewal 04/08/2019 Sinus tachycardia with left bundle branch block. Technically difficult study in light of the patient's body habitus but some david gnostically useful information was still obtained. M-mode and two-dimensional echocardiography was performed with pulsed, continuous wave, color flow and tissue Doppler studies. Mild concentric left ventricle hypertrophy with septal wall motion abnormality, yet minimally impaired global resting systolic function. Prominently dilated left atrium. At least mildly dilated right ventricle with normal right ventricular wall motion and Doppler evidence of at least moderate pulmonary hypertension. Moderately dilated right atrium with IVC size upper limits of normal to slightly increased suggestive of an elevated central venous pressure. Aortic valvular sclerosis without obvious functional valvular abnormality. Normal aortic root size. Bioprosthetic mitral valve with visible cusp motion and no obvious valvular dysfunction. Normal appearing tricuspid valve with mild insufficiency. No separate intracardiac mass or pericardial effusion. Could not rule out a valvular vegetation in light of the technically difficult study. If endocarditis was suspect, a transesophageal echocardiogram would be necessary. ASSESSMENT AND PLAN: This is a 54-year-old female with a past medical history of coronary artery disease (CAD), hypertrophic cardiomyopathy status post septal myomectomy, diastolic congestive heart failure (CHF), SIGIFREDO, noncompliant with CPAP, history of mitral valve replacement, CKD, atrial fibrillation on anticoagulation, history of provoked PE, who presented initially to [facility] with a complaint of worsening abdominal pain. PROBLEMS: 1. Shock: possible septic shock vs hemorrhagic shock unlikely cardiogenic shock. -possibly multifactorial; history of congestive heart failure with multiple valve replacements 2 , hypertrophic cardiomyopathy status post myomectomy, cor pulmonale secondary to untreated obstructive sleep apnea and positive UTI -Leukocytosis and reported fevers at previous hospital -echocardiogram above -Blood culture Cultures 2 negative -Urine cultures from [facility] returned positive for Klebsiella sensitive to Meropenem, awaiting sensitivities be faxed -Continue meropenem, (penicillin allergy) 14 days (04/21), discontinued daptomycin PICC placement was attempted on 04/11, however, it was unable to be placed. On 04/12, patient was able to have 2 IVs placed, so the PICC line is no longer necessary and will not be placed for now. 2. Recent VRE bacteremia prior to admission (resolved) -Discontinue daptomycin -repeat blood cultures 2 negative. 3. UTI -Discontinue Berg -Urine cultures from [facility] returned positive for Klebsiella sensitive to Meropenem, awaiting sensitivities be faxed Urine culture obtained at [facility] was negative. 4. Acute blood loss anemia possibly secondary to large hematoma in the abdomen -s/p 2 units of PRBC at [facility], 1 unit PRBC at [facility] -Stable, continue to monitor. 5. CAD, stable chronic chest pain chronically elevated troponins recent negative cardiac cath. -Hold aspirin 81 mg due to acute hematoma 6. Hypertrophic cardiomyopathy status post septal myomectomy 2. Hemodynamically stable at this time 7. Acutely decompensated diastolic congestive heart failure. -unsure of baseline EF. Continue diuresis with furosemide and monitor I/O. Fluid restriction to 1800mL Increased her furosemide from 40mg twice a day to 40mg 4 times a day for a net negative goal of 2 L per day 8. Obstructive sleep apnea -noncompliant with CPAP, states its broken 9. Dyslipidemia -Rosuvastatin 40 mg daily 10. Diabetes mellitus -Insulin sliding scale -FSBS ah & qhs 11. Hx of mechanical mitral valve replacement s/p thrombosis and second mitral valve replacement with bioprosthetic valve -Previously bridging to warfarin with Lovenox injections -Hold all anticoagulation at this current time due to acute hematoma 12. Acute on Chronic kidney disease -baseline creatine: unsure, is likely close to 2.2 -Continues to trend down, we are actively diuresing her now, continue to monitor 13. History of gout Hold allopurinol due to LUZ 14. Asthma -Baseline and stable 15. Hypertension -Continue Furosemide -Hold diltiazem ER 60 mg, can consider restarting once blood pressures improve 16. Hypothyroidism -Continue synthyroid 25mcg daily 17. Restless leg syndrome -Continue Requip and Lyrica 18. Gastroesophageal reflux disease -Continue home Protonix 19. Anxiety depression -Continue Celexa and lorazepam 20. Atrial fibrillation anticoagulated status post pacer with an inappropriately placed lead -Hold anticoagulation due to acute hematoma -Continue amiodarone -Is clinically stable, can consider transferring the patient to [facility] regarding her pacer lead if needed. Otherwise she will need outpatient follow-up regarding the pacer lead. 21. Morbidly obese -BMI 71.6, Complicates care 22. DVT prophylaxis. -TEDs and sequentials DISPOSITION: Inpatient med/surg, pending clinical improvement I saw and evaluated the patient. I agree with the findings and plan of care as documented in the above note VS, I&O, 24H, Fishbone Vital Signs/I&O Vital Signs Date Time Temp Pulse Resp B/P (MAP) Pulse Ox O2 Delivery O2 Flow Rate FiO2 04/13/19 08:47 16 04/13/19 06:00 96.3 114 115/62 (79) 94 04/11/19 18:42 2.0 I&O- Last 24 Hours up to 6 AM 04/13/19 06:00 Intake Total 1710 ml Output Total 2050 ml Balance -340 ml Laboratory Data 24H LABS Laboratory Tests 2 04/12/19 11:49: Bedside Glucose (Misc Panel) 142H 04/12/19 16:48: Bedside Glucose (Misc Panel) 133H 04/12/19 20:30: Bedside Glucose (Misc Panel) 135H 04/13/19 06:25: Nucleated Red Blood Cells % (auto) 2.5H, Anion Gap 7L, Glomerular Filtration Rate 28.4L, Blood Urea Nitrogen 37H, Creatinine 1.95H, Sodium Level 139, Potassium Level 3.9, Chloride Level 102, Carbon Dioxide Level 30, Calcium Level 8.3L, Aspartate Amino Transf (AST/SGOT) 32, Alanine Aminotransferase (ALT/SGPT) 24, Alkaline Phosphatase 149H, Total Bilirubin 1.4H, Total Protein 6.2L, Albumin 2.1L, Albumin/Globulin Ratio 0.51L CBC/BMP Laboratory Tests 04/13/19 06:25 Red Blood Count 2.51 L, Mean Corpuscular Volume 97.2 H, Mean Corpuscular Hemoglobin 28.7, Mean Corpuscular Hemoglobin Concent 29.5 L, Red Cell Distribution Width 22.5 H, Calcium Level 8.3 L, Aspartate Amino Transf (AST/SGOT) 32, Alanine Aminotransferase (ALT/SGPT) 24, Alkaline Phosphatase 149 H, Total Bilirubin 1.4 H, Total Protein 6.2 L, Albumin 2.1 L Microbiology Microbiology 04/08/19 Blood Culture - Preliminary, Resulted No Growth after 72 hours. All specime... 04/08/19 Blood Culture - Preliminary, Resulted No Growth after 72 hours. All specime... 04/09/19 Urine Culture - Final, Complete JEFFERY PHILLIPS PGY-1 Apr 13, 2019 09:53 RADHA NEWTON MD Apr 16, 2019 16:12
[2019-04-13 14:00] VITALS: BP 124/71
[2019-04-13] MEDS: diphenhydrAMINE 50 MG CAP PO PRN (14:47)
[2019-04-13] MEDS: rOPINIRole 1MG TAB PO SCH (21:01)
[2019-04-13 22:00] VITALS: BP 124/67
[2019-04-14] MEDS: FUROSEMIDE 40 MG/4 ML VIAL (J1940) IV SCH ×4 (00:08→19:02)
[2019-04-14] MEDS: MEROPENEM INJ 1 GM in APPROPRIATE DILUENT 1 EA IV SCH ×2 (03:03→11:47)
[2019-04-14] MEDS ORDERED: METOPROLOL SUCC *XL* 25MG TAB (TopROL *XL*) PO ONE (04:15)
[2019-04-14] MEDS: LEVOTHYROXINE 25MCG TABLET (0.025MG) PO SCH (05:54)
[2019-04-14 06:00] VITALS: BP 116/67
[2019-04-14] MEDS: HumaLOG INSULIN (NovoLOG) PER UNIT SC SCH ×4 (07:30→20:44)
[2019-04-14] MEDS: ROSUVASTATIN 10 MG TAB (CRESTOR) PO SCH (07:50)
[2019-04-14] MEDS: MULTIVITAMINS/MINERALS THERAP 1 TAB PO SCH (07:50)
[2019-04-14] MEDS: AMIODARONE 200 MG TAB (PACERONE) PO SCH (07:50)
[2019-04-14] MEDS: PREGABALIN 75 MG CAP(LYRICA) PO SCH ×2 (07:51→20:40)
[2019-04-14] MEDS: CitaloPRAM (CeleXA) 10 MG TABLET PO SCH (07:51)
[2019-04-14] MEDS: PANTOPRAZOLE 40MG TAB (PROTONIX) PO SCH (07:51)
[2019-04-14] MEDS: PERCOCET 5MG/325MG TAB PO PRN ×3 (07:53→20:45)
[2019-04-14 07:58] LABS: ALBUMIN 2.2 GM/DL (3.2-5.2); BILIRUBIN,TOTAL 1.8 MG/DL (0.2-1.0); CALCIUM LEVEL 8.8 MG/DL (8.5-10.1); CREATININE FOR GFR 1.94 MG/DL (0.55-1.30); GLOMERULAR FILTRATION RATE 28.5 (>51); POTASSIUM SERUM 4.1 MEQ/L (3.5-5.1); TOTAL PROTEIN 6.7 GM/DL (6.4-8.2)
[2019-04-14 08:12] LABS: HEMATOCRIT 27.7 % (36.0-47.0); HEMOGLOBIN 8.2 g/dl (12.0-15.5); MEAN CORPUSCULAR HEMOGLOBIN 28.4 pg (27.0-33.0); MEAN CORPUSCULAR HGB CONC 29.6 g/dl (32.0-36.5); MEAN CORPUSCULAR VOLUME 95.8 fl (80.0-96.0); PLATELET COUNT, AUTOMATED 214 10^3/uL (150-450); RED BLOOD COUNT 2.89 10^6/uL (4.00-5.40)
[2019-04-14] MEDS: NYSTATIN 100,000 UNITS/GM TOPICAL PWD 15 GM TOP SCH ×2 (09:00→20:45)
[2019-04-14] MEDS ORDERED: MIRALAX *UNIT DOSE* 17GM PACKET PO SCH (09:00)
[2019-04-14] MEDS ORDERED: metOLazone 5 MG TAB PO ONE (12:00)
[2019-04-14] MEDS: SENOKOT S TAB PO SCH ×3 (12:35→20:48)
[2019-04-14] MEDS ORDERED: MIRALAX *UNIT DOSE* 17GM PACKET PO PRN ×2 (14:15)
--- NOTE | 2019-04-14 14:32 | IPNPDOC ---
Date Seen The patient was seen on 04/14/19. Progress Note SUBJECTIVE: Patient is a 54-year-old female with a past medical history of coronary artery disease (CAD), hypertrophic cardiomyopathy status post septal myomectomy, diastolic congestive heart failure (CHF), SIGIFREDO, noncompliant with CPAP, history of mitral valve replacement, CKD, atrial fibrillation on anticoagulation, history of provoked PE, who presented initially to [facility] with a complaint of worsening abdominal pain. Patient seen and examined in her room today sitting up in chair. She states her breathing has been more difficult this morning and she had an episode of chest pain under her sternum when she was getting back to her chair from the bathroom. The pain did resolve when she sat down. She does continue to feel short of breath at rest. She also notes she had some episodes of tachycardia overnight and was given medicine for this. Otherwise, she states she is feeling well. She does continue to have pain in her abdomen left side where the hematoma is present. She reports no improvement in her leg swelling She denies fevers, chills, chest pain, nausea, vomiting, diarrhea. OBJECTIVE: PHYSICAL EXAMINATION: VITAL SIGNS: Please see below. GENERAL: Morbidly obese, alert, comfortable, sitting up in chair, no acute distress HEENT: PERRLA, EOMI, Moist mucous membranes, unable to assess for JVD due to body habitus CARDIOVASCULAR: Distant heart sounds, difficult to assess secondary to body habitus RESPIRATORY: Distant breath sounds bilaterally due to body habitus with crackles at the bases, no wheezing or rhonchi auscultated. ABDOMINAL: Morbidly obese, anasarca and pitting edema along the lower left quadrant with some erythema, warmth, and discoloration, tenderness along the lower left quadrant, bowel sounds present. Other than the area of firmness where anasarca is present, the abdomen is soft. EXTREMITIES: No cyanosis, 3+ pitting edema in bilateral lower extremities with anasarca under the thighs. Calves are nontender. NEUROLOGICAL: Alert and oriented [address], [address] and time, cranial nerves II-XII grossly intact, no focal deficits appreciated PSYCHOLOGICAL: Mood and affect normal LABORATORY DATA, IMAGING STUDIES, MICROBIOLOGY: Please see below. Echocardiogram: Dr. Grewal 04/08/2019 Sinus tachycardia with left bundle branch block. Technically difficult study in light of the patient's body habitus but some diagnostically useful information was still obtained. M-mode and two-dimensional echocardiography was performed with pulsed, cont inuous wave, color flow and tissue Doppler studies. Mild concentric left ventricle hypertrophy with septal wall motion abnormality, yet minimally impaired global resting systolic function. Prominently dilated left atrium. At least mildly dilated right ventricle with normal right ventricular wall mot ion and Doppler evidence of at least moderate pulmonary hypertension. Moderately dilated right atrium with IVC size upper limits of normal to slightly increased suggestive of an elevated central venous pressure. Aortic valvular sclerosis without obvious functional valvular abnormality. Normal aortic root size. Bioprosthetic mitral valve with visible cusp motion and no obvious valvular dysfunction. Normal appearing tricuspid valve with mild insufficiency. No separate intracardiac mass or pericardial effusion. Could not rule out a valvular vegetation in light of the technically difficult study. If endocarditis was suspect, a transesophageal echocardiogram would be necessary. ASSESSMENT AND PLAN: This is a 54-year-old female with a past medical history of coronary artery disease (CAD), hypertrophic cardiomyopathy status post septal myomectomy, diastolic congestive heart failure (CHF), SIGIFREDO, noncompliant with CPAP, history of mitral valve replacement, CKD, atrial fibrillation on anticoag ulation, history of provoked PE, who presented initially to [facility] with a complaint of worsening abdominal pain. PROBLEMS: 1. Shock: possible septic shock vs hemorrhagic shock unlikely cardiogenic shock. -possibly multifactorial; history of congestive heart failure with multiple va lve replacements 2 , hypertrophic cardiomyopathy status post myomectomy, cor pulmonale secondary to untreated obstructive sleep apnea and positive UTI -Leukocytosis and reported fevers at previous hospital -echocardiogram above -Blood culture Cultures 2 negative -Urine cultures from [facility] returned positive for Klebsiella sensitive to Meropenem, awaiting sensitivities be faxed -Continue meropenem, (penicillin allergy) 7 days (04/14), discontinued daptomycin PICC placement was attempted on 04/11, however, it was unable to be placed. On 04/12, patient was able to have 2 IVs placed, so the PICC line is no longer necessary and will not be placed for now. 2. Acutely decompensated diastolic congestive heart failure. -unsure of baseline EF. I/O was net positive about 910 mL yesterday. Continue diuresis with furosemide and monitor I/O. Fluid restriction to 1000mL today with 2 gram sodium restriction Continue furosemide from 40mg twice a day to 40mg 4 times a day for a net negative goal of 2 L per day. Added 5 mg dose of metolazone today, to see if this helps. 3. Atrial fibrillation anticoagulated status post pacer with an inappropriately placed lead -Hold anticoagulation due to acute hematoma -Has been clinically stable, can consider transferring the patient to [facility] regarding her pacer lead if needed. Otherwise she will need outpatient follow-up regarding the pacer lead. -Continue amiodarone. Pt has had episodes of afib with RVR last night and today. She did receive a dose of metoprolol overnight. Will restart her home diltiazem today to help better control her atrial fibrillation. 4. Acute blood loss anemia possibly secondary to large hematoma in the abdomen -s/p 2 units of PRBC at [facility], 1 unit PRBC at [facility] on 04/09, 1 unit PRBC at [facility] on 04/13 -Stable, continue to monitor. 5. Recent VRE bacteremia prior to admission (resolved) -Discontinue daptomycin -repeat blood cultures 2 negative. 6. UTI -Discontinue Berg -Urine cultures from [facility] returned positive for Klebsiella sensitive to Meropenem Urine culture obtained at [facility] was negative. Continue antibiotics for 7 day course. She is on day #7 of meropenem and this will be finished after today 7. CAD, stable chronic chest pain chronically elevated troponins recent negative cardiac cath. -Hold aspirin 81 mg due to acute hematoma 8. Hypertrophic cardiomyopathy status post septal myomectomy 2. Hemodynamically stable at this time 9. Obstructive sleep apnea -noncompliant with CPAP, states its broken 10. Dyslipidemia -Rosuvastatin 40 mg daily 11. Diabetes mellitus -Insulin sliding scale -FSBS ah & qhs 12. Hx of mechanical mitral valve replacement s/p thrombosis and second mitral valve replacement with bioprosthetic valve -Previously bridging to warfarin with Lovenox injections -Hold all anticoagulation at this current time due to acute hematoma 13. Acute on Chronic kidney disease -baseline creatine: unsure, is likely close to 2.2 -Continues to trend down, we are actively diuresing her now, continue to monitor 14. History of gout Hold allopurinol due to LUZ 15. Asthma -Baseline and stable 16. Hypertension -Continue Furosemide -Hold diltiazem ER 60 mg, can consider restarting once blood pressures improve 17. Hypothyroidism -Continue synthyroid 25mcg daily 18. Restless leg syndrome -Continue Requip and Lyrica 19. Gastroesophageal reflux disease -Continue home Protonix 20. Anxiety depression -Continue Celexa and lorazepam 21. Morbidly obese -BMI 71.6, Complicates care 22. DVT prophylaxis. -TEDs and sequentials DISPOSITION: Inpatient med/surg, pending clinical improvement I saw and evaluated the patient. I agree with the findings and plan of care as documented in the above note VS, I&O, 24H, Fishbone Vital Signs/I&O Vital Signs Date Time Temp Pulse Resp B/P (MAP) Pulse Ox O2 Delivery O2 Flow Rate FiO2 04/14/19 07:53 17 04/14/19 06:00 97.4 111 116/67 (83) 95 04/11/19 18:42 2.0 I&O- Last 24 Hours up to 6 AM 04/14/19 06:00 Intake Total 2210 ml Output Total 1350 ml Balance 860 ml Laboratory Data 24H LABS Laboratory Tests 2 04/13/19 11:59: Bedside Glucose (Misc Panel) 135H 04/13/19 17:05: Bedside Glucose (Misc Panel) 218H 04/13/19 20:53: Bedside Glucose (Misc Panel) 118H 04/14/19 06:09: Nucleated Red Blood Cells % (auto) 2.5H, Anion Gap 6L, Glomerular Filtration Rate 28.5L, Blood Urea Nitrogen 33H, Creatinine 1.94H, Sodium Level 140, Potassium Level 4.1, Chloride Level 104, Carbon Dioxide Level 30, Calcium Level 8.8, Aspartate Amino Transf (AST/SGOT) 48H, Alanine Aminotransferase (ALT/SGPT) 24, Alkaline Phosphatase 177H, Total Bilirubin 1.8H, Total Protein 6.7, Albumin 2.2L, Albumin/Globulin Ratio 0.49L CBC/BMP Laboratory Tests 04/14/19 06:09 Red Blood Count 2.89 L, Mean Corpuscular Volume 95.8, Mean Corpuscular Hemoglobin 28.4, Mean Corpuscular Hemoglobin Concent 29.6 L, Red Cell Distribution Width 23.2 H, Calcium Level 8.8, Aspartate Amino Transf (AST/SGOT) 48 H, Alanine Aminotransferase (ALT/SGPT) 24, Alkaline Phosphatase 177 H, Total Bilirubin 1.8 H, Total Protein 6.7, Albumin 2.2 L Microbiology Microbiology 04/08/19 Blood Culture - Final, Complete NO GROWTH AFTER 5 DAYS 04/08/19 Blood Culture - Final, Complete NO GROWTH AFTER 5 DAYS 04/09/19 Urine Culture - Final, Complete JEFFERY PHILLIPS PGY-1 Apr 14, 2019 10:02 RADHA NEWTON MD Apr 16, 2019 16:14
[2019-04-14] MEDS: rOPINIRole 1MG TAB PO SCH (20:40)
[2019-04-14 22:00] VITALS: BP 119/66
[2019-04-14] MEDS ORDERED: LORazepam 1 MG TAB PO ONE (22:45)
[2019-04-15] MEDS: FUROSEMIDE 40 MG/4 ML VIAL (J1940) IV SCH ×4 (00:27→18:00)
[2019-04-15] MEDS: PERCOCET 5MG/325MG TAB PO PRN ×4 (01:11→22:26)
[2019-04-15] MEDS: LEVOTHYROXINE 25MCG TABLET (0.025MG) PO SCH (05:29)
[2019-04-15 06:00] VITALS: BP 109/72
[2019-04-15 06:36] LABS: HEMOGLOBIN 7.6 g/dl (12.0-15.5); MEAN CORPUSCULAR HEMOGLOBIN 28.6 pg (27.0-33.0); MEAN CORPUSCULAR HGB CONC 29.2 g/dl (32.0-36.5); MEAN CORPUSCULAR VOLUME 97.7 fl (80.0-96.0); PLATELET COUNT, AUTOMATED 190 10^3/uL (150-450); RED BLOOD COUNT 2.66 10^6/uL (4.00-5.40); WHITE BLOOD COUNT 11.4 10^3/uL (4.0-10.0)
[2019-04-15 07:01] LABS: ALBUMIN 2.1 GM/DL (3.2-5.2); BILIRUBIN,TOTAL 2.2 MG/DL (0.2-1.0); CALCIUM LEVEL 8.4 MG/DL (8.5-10.1); CREATININE FOR GFR 1.8 MG/DL (0.55-1.30); GLOMERULAR FILTRATION RATE 31.1 (>51); TOTAL PROTEIN 6.3 GM/DL (6.4-8.2)
[2019-04-15 07:47] LABS: MAGNESIUM LEVEL 1.8 MG/DL (1.8-2.4)
[2019-04-15] MEDS ORDERED: POTASSIUM CHLORIDE 10 MEQ SR TABLET PO ONE ×2 (08:00→10:00)
[2019-04-15] MEDS: MULTIVITAMINS/MINERALS THERAP 1 TAB PO SCH (08:27)
[2019-04-15] MEDS: ROSUVASTATIN 10 MG TAB (CRESTOR) PO SCH (08:27)
[2019-04-15] MEDS: AMIODARONE 200 MG TAB (PACERONE) PO SCH (08:27)
[2019-04-15] MEDS: SENOKOT S TAB PO SCH ×2 (08:27→21:00)
[2019-04-15] MEDS: PANTOPRAZOLE 40MG TAB (PROTONIX) PO SCH (08:27)
[2019-04-15] MEDS: PREGABALIN 75 MG CAP(LYRICA) PO SCH ×2 (08:27→22:24)
[2019-04-15] MEDS: CitaloPRAM (CeleXA) 10 MG TABLET PO SCH (08:27)
[2019-04-15] MEDS: HumaLOG INSULIN (NovoLOG) PER UNIT SC SCH ×4 (08:28→21:00)
[2019-04-15] MEDS: NYSTATIN 100,000 UNITS/GM TOPICAL PWD 15 GM TOP SCH ×2 (08:28→22:25)
--- NOTE | 2019-04-15 09:46 | IPNPDOC ---
Date Seen The patient was seen on 04/15/19. Progress Note SUBJECTIVE: Patient is a 54-year-old female with a past medical history of coronary artery disease (CAD), hypertrophic cardiomyopathy status post septal myomectomy, diastolic congestive heart failure (CHF), SIGFIREDO, noncompliant with CPAP, history of mitral valve replacement, CKD, atrial fibrillation on anticoagulation, history of provoked PE, who presented initially to [facility] with a complaint of worsening abdominal pain. Patient seen and examined in her room today sitting up in chair. She reports she did have some anxiety overnight last night and asked for a dose of Ativan, which worked well.. She states she is feeling better now and does not complain of any recurrent anxiety. She states her shortness of breath is much improved today and she feels like she can breathe easier. She also states she feels her legs are little bit less swollen today. She understands the purpose of the fluid restriction to help further her diuresis. She denies fevers, chills, chest pain, nausea, vomiting, diarrhea. OBJECTIVE: PHYSICAL EXAMINATION: VITAL SIGNS: Please see below. GENERAL: Morbidly obese, alert, comfortable, sitting up in chair, no acute distress HEENT: PERRLA, EOMI, Moist mucous membranes, unable to assess for JVD due to body habitus CARDIOVASCULAR: Distant heart sounds, difficult to assess secondary to body habitus RESPIRATORY: Distant breath sounds bilaterally due to body habitus with crackles at the bases, no wheezing or rhonchi auscultated. ABDOMINAL: Morbidly obese, anasarca and pitting edema along the lower left quadrant with some erythema, warmth, and discoloration, tenderness along the lower left quadrant, bowel sounds present. Other than the area of firmness where anasarca is present, the abdomen is soft. EXTREMITIES: No cyanosis, 3+ pitting edema in bilateral lower extremities with anasarca under the thighs. Calves are nontender. NEUROLOGICAL: Alert and oriented 3 [address], place and time, cranial nerves II-XII grossly intact, no focal deficits appreciated PSYCHOLOGICAL: Mood and affect normal LABORATORY DATA, IMAGING STUDIES, MICROBIOLOGY: Please see below. Echocardiogram: Dr. Grewal 04/08/2019 Sinus tachycardia with left bundle branch block. Technically difficult study in light of the patient's body habitus but some diagnostically useful information was still obtained. M-mode and two-dimensional echocardiography was performed with pulsed, continuous wave, color flow and tissue Doppler studies. Mild concentric left ventricle hypertrophy with septal wall motion abnormality, yet minimally impaired global resting systolic function. Prominently dilated left atrium. At least mildly dilated right ventricle with normal right ventricular wall motion and Doppler evidence of at least moderate pulmonary hypertension. Moderately dilated right atrium with IVC size upper limits of normal to slightly increased suggestive of an elevated central venous pressure. Aortic valvular sclerosis without obvious functional valvular abnormality. Normal aortic root size. Bioprosthetic mitral valve with visible cusp motion and no obvious valvular dysfunction. Normal appearing tricuspid valve with mild insufficiency. No separate intracardiac mass or pericardial effusion. Could not rule out a valvular vegetation in light of the technically difficult study. If endocarditis was suspect, a transesophageal echocardiogram would be necessary. ASSESSMENT AND PLAN: This is a 54-year-old female with a past medical history of coronary artery disease (CAD), hypertrophic cardiomyopathy status post septal myomectomy, diastolic congestive heart failure (CHF), SIGIFREDO, noncompliant with CPAP, history of mitral valve replacement, CKD, atrial fibrillation on anticoagulation, history of provoked PE, who presented initially to [facility] with a complaint of worsening abdominal pain. PROBLEMS: 1. Shock: possible septic shock vs hemorrhagic shock unlikely cardiogenic shock. -possibly multifactorial; history of congestive heart failure with multiple valve replacements 2 , hypertrophic cardiomyopathy status post myomectomy, cor pulmonale secondary to untreated obstructive sleep apnea and positive UTI -Leukocytosis and reported fevers at previous hospital -echocardiogram above -Blood culture Cultures 2 negative -Urine cultures from [facility] returned positive for Klebsiella sensitive to Meropenem -Discontinued daptomycin, finish full 7 day course of meropenem. PICC placement was attempted on 04/11, however, it was unable to be placed. On 04/12, patient was able to have 2 IVs placed, so the PICC line is no longer necessary and will not be placed for now. 2. Acutely decompensated diastolic congestive heart failure. -unsure of baseline EF. I/O was net negative 2860 mL yesterday, patient does report improvement in her shortness of breath and leg swelling. Continue diuresis with furosemide and monitor I/O. Fluid restriction to 1000mL today with 2 gram sodium restriction Continue furosemide from 40mg twice a day to 40mg 4 times a day for a net negative goal of 2 L per day. She did receive an additional diuretic yesterday with 5 mg metolazone. Will hold on restarting this today, and see how she does without it. May continue this tomorrow if she does not diuresis well today. 3. Atrial fibrillation anticoagulated status post pacer with an inappropriately placed lead -Hold anticoagulation due to acute hematoma -Has been clinically stable, can consider transferring the patient to [facility] regarding her pacer lead if needed. Otherwise she will need outpatient follow-up regarding the pacer lead. -Continue her home diltiazem and amiodarone 4. Acute blood loss anemia possibly secondary to large hematoma in the abdomen -s/p 2 units of PRBC at [facility], 1 unit PRBC at [facility] on 04/09, 1 unit PRBC at [facility] on 04/13 -Stable, continue to monitor. 5. Recent VRE bacteremia prior to admission (resolved) -Discontinue daptomycin -repeat blood cultures 2 negative. 6. UTI -Discontinue Berg -Urine cultures from [facility] returned positive for Klebsiella sensitive to Meropenem Urine culture obtained at [facility] was negative. Continue antibiotics for 7 day course. She is on day #7 of meropenem and this will be finished after today 7. CAD, stable chronic chest pain chronically elevated troponins recent negative cardiac cath. -Hold aspirin 81 mg due to acute hematoma 8. Hypertrophic cardiomyopathy status post septal myomectomy 2. Hemodynamically stable at this time 9. Obstructive sleep apnea -noncompliant with CPAP, states its broken 10. Dyslipidemia -Rosuvastatin 40 mg daily 11. Diabetes mellitus -Insulin sliding scale -FSBS ah & qhs 12. Hx of mechanical mitral valve replacement s/p thrombosis and second mitral valve replacement with bioprosthetic valve -Previously bridging to warfarin with Lovenox injections -Hold all anticoagulation at this current time due to acute hematoma 13. Acute on Chronic kidney disease -baseline creatine: unsure, is likely close to 2.2 -Continues to trend down, we are actively diuresing her now, continue to monitor 14. History of gout Hold allopurinol due to LUZ 15. Asthma -Baseline and stable 16. Hypertension -Continue Furosemide -Hold diltiazem ER 60 mg, can consider restarting once blood pressures improve 17. Hypothyroidism -Continue synthyroid 25mcg daily 18. Restless leg syndrome -Continue Requip and Lyrica 19. Gastroesophageal reflux disease -Continue home Protonix 20. Anxiety depression -Continue Celexa and lorazepam 21. Morbidly obese -BMI 71.6, Complicates care 22. DVT prophylaxis. -TEDs and sequentials DISPOSITION: Inpatient med/surg, pending clinical improvement VS, I&O, 24H, Fishbone Vital Signs/I&O Vital Signs Date Time Temp Pulse Resp B/P (MAP) Pulse Ox O2 Delivery O2 Flow Rate FiO2 04/15/19 08:26 111 109/72 04/15/19 06:00 98.3 19 99 04/11/19 18:42 2.0 I&O- Last 24 Hours up to 6 AM 04/15/19 06:00 Intake Total 915 ml Output Total 4625 ml Balance -3710 ml Laboratory Data 24H LABS Laboratory Tests 2 04/14/19 11:22: Bedside Glucose (Misc Panel) 114H 04/14/19 16:38: Bedside Glucose (Misc Panel) 124H 04/14/19 20:08: Bedside Glucose (Misc Panel) 127H 04/15/19 06:14: Nucleated Red Blood Cells % (auto) 1.2H, Anion Gap 7L, Glomerular Filtration Rate 31.1L, Blood Urea Nitrogen 29H, Creatinine 1.80H, Sodium Level 140, Potassium Level 3.0#L, Chloride Level 101, Carbon Dioxide Level 32, Calcium Level 8.4L, Aspartate Amino Transf (AST/SGOT) 44H, Alanine Aminotransferase (ALT/SGPT) 24, Alkaline Phosphatase 170H, Total Bilirubin 2.2H, Total Protein 6.3L, Albumin 2.1L, Magnesium Level 1.8, Albumin/Globulin Ratio 0.50L CBC/BMP Laboratory Tests 04/15/19 06:14 Red Blood Count 2.66 L, Mean Corpuscular Volume 97.7 H, Mean Corpuscular Hemoglobin 28.6, Mean Corpuscular Hemoglobin Concent 29.2 L, Red Cell Distribution Width 24.4 H, Calcium Level 8.4 L, Aspartate Amino Transf (AST/SGOT) 44 H, Alanine Aminotransferase (ALT/SGPT) 24, Alkaline Phosphatase 170 H, Total Bilirubin 2.2 H, Total Protein 6.3 L, Albumin 2.1 L Microbiology Microbiology 04/08/19 Blood Culture - Final, Complete NO GROWTH AFTER 5 DAYS 04/08/19 Blood Culture - Final, Complete NO GROWTH AFTER 5 DAYS 04/09/19 Urine Culture - Final, Complete JEFFERY PHILLIPS PGY-1 Apr 15, 2019 09:46
[2019-04-15] MEDS ORDERED: METOPROLOL TART 12.5 MG PER 1/2 TAB PO SCH (12:00)
[2019-04-15 14:00] VITALS: BP 100/52
[2019-04-15] MEDS: METOPROLOL TART 25 MG TABLET PO SCH (18:22)
[2019-04-15] MEDS ORDERED: METOPROLOL TART 12.5 MG PER 1/2 TAB PO ONE (18:30)
[2019-04-15 22:00] VITALS: BP 111/77
[2019-04-15] MEDS: rOPINIRole 1MG TAB PO SCH (22:24)
[2019-04-16] MEDS: METOPROLOL TART 25 MG TABLET PO SCH ×2 (00:59→05:44)
[2019-04-16] MEDS: FUROSEMIDE 40 MG/4 ML VIAL (J1940) IV SCH ×4 (01:01→18:50)
[2019-04-16] MEDS: LEVOTHYROXINE 25MCG TABLET (0.025MG) PO SCH (05:44)
[2019-04-16 06:00] VITALS: BP 113/73
[2019-04-16 07:04] LABS: HEMATOCRIT 26.6 % (36.0-47.0); HEMOGLOBIN 7.6 g/dl (12.0-15.5); MEAN CORPUSCULAR HEMOGLOBIN 28.7 pg (27.0-33.0); MEAN CORPUSCULAR HGB CONC 28.6 g/dl (32.0-36.5); MEAN CORPUSCULAR VOLUME 100.4 fl (80.0-96.0); PLATELET COUNT, AUTOMATED 190 10^3/uL (150-450); RED BLOOD COUNT 2.65 10^6/uL (4.00-5.40); WHITE BLOOD COUNT 9.3 10^3/uL (4.0-10.0)
[2019-04-16] MEDS: HumaLOG INSULIN (NovoLOG) PER UNIT SC SCH ×4 (07:30→21:00)
[2019-04-16 07:31] LABS: ALBUMIN 2.1 GM/DL (3.2-5.2); BILIRUBIN,TOTAL 2.5 MG/DL (0.2-1.0); CALCIUM LEVEL 8.3 MG/DL (8.5-10.1); CREATININE FOR GFR 1.86 MG/DL (0.55-1.30); GLOMERULAR FILTRATION RATE 29.9 (>51); MAGNESIUM LEVEL 1.7 MG/DL (1.8-2.4); TOTAL PROTEIN 6.3 GM/DL (6.4-8.2)
[2019-04-16] MEDS ORDERED: METOPROLOL TART 12.5 MG PER 1/2 TAB PO ONE (08:00)
[2019-04-16] MEDS: PANTOPRAZOLE 40MG TAB (PROTONIX) PO SCH (08:55)
[2019-04-16] MEDS: MULTIVITAMINS/MINERALS THERAP 1 TAB PO SCH (08:56)
[2019-04-16] MEDS: AMIODARONE 200 MG TAB (PACERONE) PO SCH (08:56)
[2019-04-16] MEDS: PREGABALIN 75 MG CAP(LYRICA) PO SCH ×2 (08:56→22:28)
[2019-04-16] MEDS: ROSUVASTATIN 10 MG TAB (CRESTOR) PO SCH (08:56)
[2019-04-16] MEDS: CitaloPRAM (CeleXA) 10 MG TABLET PO SCH (08:56)
[2019-04-16] MEDS: SENOKOT S TAB PO SCH ×3 (08:57→21:00)
[2019-04-16] MEDS: NYSTATIN 100,000 UNITS/GM TOPICAL PWD 15 GM TOP SCH ×2 (08:58→22:29)
[2019-04-16] MEDS ORDERED: MAG SULF 1GM/100ML (MAG RUN) 1 GM in APPROPRIATE DILUENT 1 EA IV ONE (09:00)
[2019-04-16] MEDS: PERCOCET 5MG/325MG TAB PO PRN ×3 (09:05→22:30)
[2019-04-16] MEDS ORDERED: POTASSIUM CHLORIDE 10 MEQ SR TABLET PO ONE ×2 (10:00→12:00)
--- NOTE | 2019-04-16 11:23 | IPNPDOC ---
Date Seen The patient was seen on 04/16/19. Progress Note SUBJECTIVE: Patient is a 54-year-old female with a past medical history of coronary artery disease (CAD), hypertrophic cardiomyopathy status post septal myomectomy, diastolic congestive heart failure (CHF), SIGIFREDO, noncompliant with CPAP, history of mitral valve replacement, CKD, atrial fibrillation on anticoagulation, history of provoked PE, who presented initially to [facility] with a complaint of worsening abdominal pain. Patient seen and examined in her room today sitting up in chair. She states her shortness of breath continues to improve today. She does feel like her legs are less swollen as well. Discussed continuing the fluid restriction today and she understand this there to help the diuresis. She notes her skin has been very dry. She denies fevers, chills, chest pain, nausea, vomiting, diarrhea. OBJECTIVE: PHYSICAL EXAMINATION: VITAL SIGNS: Please see below. GENERAL: Morbidly obese, alert, comfortable, sitting up in chair, no acute distress HEENT: PERRLA, EOMI, Moist mucous membranes, unable to assess for JVD due to body habitus CARDIOVASCULAR: Distant heart sounds, difficult to assess secondary to body habitus RESPIRATORY: Distant breath sounds bilaterally due to body habitus with crackles at the bases, no wheezing or rhonchi auscultated. ABDOMINAL: Morbidly obese, anasarca and pitting edema along the lower left quadrant with some erythema, warmth, and discoloration, tenderness along the lower left quadrant, bowel sounds present. Other than the area of firmness where anasarca is present, the abdomen is soft. EXTREMITIES: No cyanosis, 2+ pitting edema in bilateral lower extremities with anasarca under the thighs. Calves are nontender. NEUROLOGICAL: Alert and oriented [address], [address] and time, cranial nerves II-XII grossly intact, no focal deficits appreciated PSYCHOLOGICAL: Mood and affect normal LABORATORY DATA, IMAGING STUDIES, MICROBIOLOGY: Please see below. Echocardiogram: Dr. Grewal 04/08/2019 Sinus tachycardia with left bundle branch block. Technically difficult study in light of the patient's body habitus but some diagnostically useful information was still obtained. M-mode and two-dimensional echocardiography was performed with pulsed, continuous wave, color flow and tissue Doppler studies. Mild concentric left ventricle hypertrophy with septal wall motion abnormality, yet minimally impaired global resting systolic function. Prominently dilated left atrium. At least mildly dilated right ventricle with normal right ventricular wall motion and Doppler evidence of at least moderate pulmonary hypertension. Moderately dilated right atrium with IVC size upper limits of normal to slightly increased suggestive of an elevated central venous pressure. Aortic valvular sclerosis without obvious functional valvular abnormality. Normal aortic root size. Bioprosthetic mitral valve with visible cusp motion and no obvious valvular dysfunction. Normal appearing tricuspid valve with mild insufficiency. No separate intracardiac mass or pericardial effusion. Could not rule out a valvular vegetation in light of the technically difficult study. If endocarditis was suspect, a transesophageal echocardiogram would be necessary. ASSESSMENT AND PLAN: This is a 54-year-old female with a past medical history of coronary artery disease (CAD), hypertrophic cardiomyopathy status post septal myomectomy, diastolic congestive heart failure (CHF), SIGIFREDO, noncompliant with CPAP, history of mitral valve replacement, CKD, atrial fibrillation on anticoagulation, history of provoked PE, who presented initially to [facility] with a complaint of worsening abdominal pain. PROBLEMS: 1. Acutely decompensated diastolic congestive heart failure. -unsure of baseline EF. I/O was net negative 3270 mL yesterday, patient does report improvement in her shortness of breath and leg swelling. Continue diuresis with furosemide and monitor I/O. Fluid restriction to 1000mL today with 2 gram sodium restriction Continue furosemide from 40mg twice a day to 40mg 4 times a day for a net negative goal of 2 L per day. She did receive an additional diuretic 04/16 with 5 mg metolazone. She did not receive this yesterday and continued to diurese well. Will consider another dose of this medication in the future if she is not diuresing well 2. Atrial fibrillation anticoagulated status post pacer with an inappropriately placed lead -Hold anticoagulation due to acute hematoma -Has been clinically stable, can consider transferring the patient to [facility] regarding her pacer lead if needed. Otherwise she will need outpatient follow-up regarding the pacer lead. -Continue her home diltiazem and amiodarone -She had also been on metoprolol at home which was restarted yesterday due to continued atrial fibrillation. Titrating up on dose for adequate rate control. Continue to monitor and titrate as needed. 3. Shock: possible septic shock vs hemorrhagic shock unlikely cardiogenic shock. -possibly multifactorial; history of congestive heart failure with multiple valve replacements 2 , hypertrophic cardiomyopathy status post myomectomy, cor pulmonale secondary to untreated obstructive sleep apnea and positive UTI -Leukocytosis and reported fevers at previous hospital -echocardiogram above -Blood culture Cultures 2 negative -Urine cultures from [facility] returned positive for Klebsiella sensitive to Meropenem -Discontinued daptomycin, finish full 7 day course of meropenem. PICC placement was attempted on 04/11, however, it was unable to be placed. On 04/12, patient was able to have 2 IVs placed, so the PICC line is no longer necessary and will not be placed for now. 4. Acute blood loss anemia possibly secondary to large hematoma in the abdomen -s/p 2 units of PRBC at [facility], 1 unit PRBC at [facility] on 04/09, 1 unit PRBC at [facility] on 04/13 -Stable, continue to monitor. 5. Recent VRE bacteremia prior to admission (resolved) -Discontinue daptomycin -repeat blood cultures 2 negative. 6. UTI -Discontinue Berg -Urine cultures from [facility] returned positive for Klebsiella sensitive to Meropenem Urine culture obtained at [facility] was negative. She finished 7 day course of meropenem, no current urinary symptoms. 7. CAD, stable chronic chest pain chronically elevated troponins recent negative cardiac cath. -Hold aspirin 81 mg due to acute hematoma 8. Hypertrophic cardiomyopathy status post septal myomectomy 2. Hemodynamically stable at this time 9. Obstructive sleep apnea -noncompliant with CPAP, states its broken 10. Dyslipidemia -Rosuvastatin 40 mg daily 11. Diabetes mellitus -Insulin sliding scale -FSBS ah & qhs 12. Hx of mechanical mitral valve replacement s/p thrombosis and second mitral valve replacement with bioprosthetic valve -Previously bridging to warfarin with Lovenox injections -Hold all anticoagulation at this current time due to acute hematoma 13. Acute on Chronic kidney disease -baseline creatine: unsure, is likely close to 2.2 -Continues to trend down, we are actively diuresing her now, continue to monitor 14. History of gout Hold allopurinol due to LUZ 15. Asthma -Baseline and stable 16. Hypertension -Continue Furosemide -Hold diltiazem ER 60 mg, can consider restarting once blood pressures improve 17. Hypothyroidism -Continue synthyroid 25mcg daily 18. Restless leg syndrome -Continue Requip and Lyrica 19. Gastroesophageal reflux disease -Continue home Protonix 20. Anxiety depression -Continue Celexa and lorazepam 21. Morbidly obese -BMI 71.6, Complicates care 22. DVT prophylaxis. -TEDs and sequentials DISPOSITION: Inpatient med/surg, pending clinical improvement VS, I&O, 24H, Fishbone Vital Signs/I&O Vital Signs Date Time Temp Pulse Resp B/P (MAP) Pulse Ox O2 Delivery O2 Flow Rate FiO2 04/16/19 09:35 18 04/16/19 09:05 97 04/16/19 06:00 97.7 116 113/73 (86) 04/11/19 18:42 2.0 I&O- Last 24 Hours up to 6 AM 04/16/19 06:00 Intake Total 780 ml Output Total 4250 ml Balance -3470 ml Laboratory Data 24H LABS Laboratory Tests 2 04/16/19 05:43: Nucleated Red Blood Cells % (auto) 1.0H, Anion Gap 10, Glomerular Filtration Rate 29.9L, Blood Urea Nitrogen 28H, Creatinine 1.86H, Sodium Level 141, Potassium Level 3.0L, Chloride Level 99, Carbon Dioxide Level 32, Calcium Level 8.3L, Aspartate Amino Transf (AST/SGOT) 50H, Alanine Aminotransferase (ALT/SGPT) 20, Alkaline Phosphatase 171H, Total Bilirubin 2.5H, Total Protein 6.3L, Albumin 2.1L, Magnesium Level 1.7L, Albumin/Globulin Ratio 0.50L CBC/BMP Laboratory Tests 04/16/19 05:43 Red Blood Count 2.65 L, Mean Corpuscular Volume 100.4 H, Mean Corpuscular Hemoglobin 28.7, Mean Corpuscular Hemoglobin Concent 28.6 L, Red Cell Distribution Width 26.5 H, Calcium Level 8.3 L, Aspartate Amino Transf (AST/SGOT) 50 H, Alanine Aminotransferase (ALT/SGPT) 20, Alkaline Phosphatase 17 1 H, Total Bilirubin 2.5 H, Total Protein 6.3 L, Albumin 2.1 L Microbiology Microbiology 04/08/19 Blood Culture - Final, Complete NO GROWTH AFTER 5 DAYS 04/08/19 Blood Culture - Final, Complete NO GROWTH AFTER 5 DAYS 04/09/19 Urine Culture - Final, Complete JEFFERY PHILLIPS PGY-1 Apr 16, 2019 11:23
[2019-04-16] MEDS: METOPROLOL TART 12.5 MG PER 1/2 TAB PO SCH ×2 (13:12→18:52)
[2019-04-16 14:00] VITALS: BP 114/67
--- NOTE | 2019-04-16 15:59 | ECGEPIP ---
[facility] Test Date: 2019-04-14 Pat Name: ABHI BARCLAY Department: Room: [place] [address] Gender: Female It Service Technician: CYN : [id number] Requested By: TODD Ralph Order Number: [id number] Reading MD: Thomas Dumont Measurements Intervals [place] Rate: 114 P: 7 [place]: 213 QRS: -1 QRSD: 178 T: 144 QT: 385 QTc: 531 Interpretive Statements SINUS TACHYCARDIA WITH FIRST DEGREE AV BLOCK LEFT ATRIAL ENLARGEMENT LEFT BUNDLE BRANCH BLOCK MOST RECENT TRACING ON 04/08/2019 AT 16:39. NO SIGNIFICANT CHANGES, HEART RATE WAS SLOWER AT 101 BEATS PER MINUTE Electronically Signed on 04-16-2019 15:58:44 EDT by Thomas Dumont
[2019-04-16] MEDS: EUCERIN 120GM CREAM TOP PRN (16:49)
[2019-04-16 18:00] VITALS: BP 101/59
[2019-04-16 22:00] VITALS: BP 105/63
[2019-04-16] MEDS: rOPINIRole 1MG TAB PO SCH (22:28)
[2019-04-17] MEDS: METOPROLOL TART 12.5 MG PER 1/2 TAB PO SCH ×4 (00:35→19:01)
[2019-04-17] MEDS: FUROSEMIDE 40 MG/4 ML VIAL (J1940) IV SCH ×4 (00:36→17:37)
[2019-04-17] MEDS: PERCOCET 5MG/325MG TAB PO PRN ×4 (02:39→19:47)
[2019-04-17 06:00] VITALS: BP 110/58
[2019-04-17] MEDS: LEVOTHYROXINE 25MCG TABLET (0.025MG) PO SCH (06:05)
[2019-04-17 06:26] LABS: HEMATOCRIT 26.7 % (36.0-47.0); HEMOGLOBIN 7.7 g/dl (12.0-15.5); MEAN CORPUSCULAR HEMOGLOBIN 28.4 pg (27.0-33.0); MEAN CORPUSCULAR HGB CONC 28.8 g/dl (32.0-36.5); MEAN CORPUSCULAR VOLUME 98.5 fl (80.0-96.0); PLATELET COUNT, AUTOMATED 196 10^3/uL (150-450); RED BLOOD COUNT 2.71 10^6/uL (4.00-5.40); WHITE BLOOD COUNT 9.8 10^3/uL (4.0-10.0)
[2019-04-17] MEDS ORDERED: IBUPROFEN 400 MG TAB PO ONE (06:45)
[2019-04-17 06:55] LABS: ALBUMIN 2.1 GM/DL (3.2-5.2); BILIRUBIN,TOTAL 1.8 MG/DL (0.2-1.0); CALCIUM LEVEL 8.3 MG/DL (8.5-10.1); CREATININE FOR GFR 2.08 MG/DL (0.55-1.30); GLOMERULAR FILTRATION RATE 26.3 (>51); TOTAL PROTEIN 6.7 GM/DL (6.4-8.2)
[2019-04-17] MEDS: HumaLOG INSULIN (NovoLOG) PER UNIT SC SCH ×4 (07:30→21:00)
[2019-04-17] MEDS: NYSTATIN 100,000 UNITS/GM TOPICAL PWD 15 GM TOP SCH ×2 (08:26→21:36)
[2019-04-17] MEDS: POTASSIUM CHLORIDE 10 MEQ SR TABLET PO SCH ×2 (08:26→21:36)
[2019-04-17] MEDS: CitaloPRAM (CeleXA) 10 MG TABLET PO SCH (08:27)
[2019-04-17] MEDS: MULTIVITAMINS/MINERALS THERAP 1 TAB PO SCH (08:27)
[2019-04-17] MEDS: AMIODARONE 200 MG TAB (PACERONE) PO SCH (08:27)
[2019-04-17] MEDS: PREGABALIN 75 MG CAP(LYRICA) PO SCH ×2 (08:27→21:32)
[2019-04-17] MEDS: PANTOPRAZOLE 40MG TAB (PROTONIX) PO SCH (08:27)
[2019-04-17] MEDS: ROSUVASTATIN 10 MG TAB (CRESTOR) PO SCH (08:27)
[2019-04-17] MEDS: SENOKOT S TAB PO SCH ×3 (08:28→21:32)
[2019-04-17] MEDS: diphenhydrAMINE 50 MG CAP PO PRN ×2 (11:37→19:01)
[2019-04-17] MEDS: EUCERIN 120GM CREAM TOP PRN (11:40)
[2019-04-17 14:00] VITALS: BP 104/68
--- NOTE | 2019-04-17 14:09 | IPNPDOC ---
Date Seen The patient was seen on 04/17/19. Progress Note SUBJECTIVE: Patient complains of abdominal pain which is worse. She has not had this pain for several days but it is similar to the pain that prompted her to present outside hospital. She denies lightheadedness dizziness chest pressure shortness of breath fevers or chills. OBJECTIVE: PHYSICAL EXAMINATION: VITAL SIGNS: Please see below. GENERAL: Morbidly obese, alert, comfortable, sitting up in chair, no acute distress HEENT: PERRLA, EOMI, Moist mucous membranes, unable to assess for JVD due to body habitus CARDIOVASCULAR: Distant heart sounds, S1 S2 RESPIRATORY: Distant breath sounds bilaterally due to body habitus ABDOMINAL: Morbidly obese, anasarca and pitting edema along the lower left quadrant with some erythema, warmth, and discoloration, EXTREMITIES: No cyanosis, 3+ pitting edema in bilateral lower extremities with anasarca under the thighs. Calves are nontender. NEUROLOGICAL: Alert and oriented 3 to person, place and time, cranial nerves II-XII grossly intact, no focal deficits appreciated PSYCHOLOGICAL: Mood and affect normal LABORATORY DATA, IMAGING STUDIES, MICROBIOLOGY: Please see below. Echocardiogram: Dr. Grewal 04/08/2019 Sinus tachycardia with left bundle branch block. Technically difficult study in light of the patient's body habitus but some diagnostically useful information was still obtained. M-mode and two-dimensional echocardiography was performed with pulsed, continuous wave, color flow and tissue Doppler studies. Mild concentric left ventricle hypertrophy with septal wall motion abnormality, yet minimally impaired global resting systolic function. Prominently dilated left atrium. At least mildly dilated right ventricle with normal right ventricular wall motion and Doppler evidence of at least moderate pulmonary hypertension. Moderately dilated right atrium with IVC size upper limits of normal to slightly increased suggestive of an elevated central venous pressure. Aortic valvular sclerosis without obvious functional valvular abnormality. Normal aortic root size. Bioprosthetic mitral valve with visible cusp motion and no obvious valvular dysfunction. Normal appearing tricuspid valve with mild insufficiency. No separate intracardiac mass or pericardial effusion. Could not rule out a valvular vegetation in light of the technically difficult study. If endocarditis was suspect, a transesophageal echocardiogram would be necessary. ASSESSMENT AND PLAN: This is a 54-year-old female with left lower quadrant pain secondary to hematoma PROBLEMS: 1. Acutely decompensated diastolic congestive heart failure: Respiratory status is at her baseline she is grossly volume overloaded we will continue with diuresis she will likely have to continue diuresis at rehabilitation as well. 2. Atrial fibrillation status post pacer with an inappropriately placed lead she will need outpatient follow-up regarding this. Her anticoagulation remains on hold due to hematoma. We have titrated up her rate control and she is doing quite well with this she is continued on metoprolol diltiazem as well as amiodarone 3. Shock: possible septic shock vs hemorrhagic shock urine culture was positive she's been on appropriate antibiotics and responded well she is no longer requiring any pressor support. Her anemia was not as significant and as such I suspect hemorrhagic shock to be much less likely she is hemodynamically stable now 4. Acute blood loss anemia possibly secondary to large hematoma in the abdomen -s/p 2 units of PRBC at [facility], 1 unit PRBC at [facility] on 04/09, 1 unit PRBC at [facility] on 04/13 -Stable, continue to monitor. She is having some more abdominal pain today and as such I will write recheck a CT scan of her abdomen 5. Recent VRE bacteremia prior to admission (resolved) -repeat blood cultures 2 negative. 6. UTI Resolved, She finished 7 day course of meropenem, no current urinary symptoms. 7. CAD, stable chronic chest pain chronically elevated troponins recent negative cardiac cath. -Hold aspirin 81 mg due to acute hematoma 8. Hypertrophic cardiomyopathy status post septal myomectomy 2. Hemodynamically stable at this time 9. Obstructive sleep apnea -noncompliant with CPAP, states its broken, strict compliance stressed long-term prognosis is guarded 10. Dyslipidemia -Rosuvastatin 40 mg daily 11. Diabetes mellitus -Insulin sliding scale -FSBS ah & qhs 12. Hx of mechanical mitral valve replacement s/p thrombosis and second mitral valve replacement with bioprosthetic valve 13. Acute on Chronic kidney disease: Resolved 14. History of gout Hold allopurinol due to LUZ tenderness upon discharge 15. Asthma -Baseline and stable 16. Hypertension -Controlled, Continue Furosemide diltiazem and metoprolol 17. Hypothyroidism -Continue synthyroid 25mcg daily 18. Restless leg syndrome -Continue Requip and Lyrica 19. Gastroesophageal reflux disease -Continue home Protonix 20. Anxiety depression -Continue Celexa and lorazepam 21. Morbidly obese -BMI 71.6, Complicates care 22. DVT prophylaxis. -TEDs and sequentials 23. Hypokalemia: By mouth supplementation DISPOSITION: Likely rehabilitation within the next 24-48 hours VS, I&O, 24H, Jenna Vital Signs/I&O Vital Signs Date Time Temp Pulse Resp B/P (MAP) Pulse Ox O2 Delivery O2 Flow Rate FiO2 04/17/19 11:36 87 128/80 04/17/19 08:59 18 04/17/19 06:00 97.7 95 04/11/19 18:42 2.0 I&O- Last 24 Hours up to 6 AM 04/17/19 05:59 Intake Total 765 ml Output Total 2725 ml Balance -1960 ml Laboratory Data 24H LABS Laboratory Tests 2 04/16/19 17:33: Bedside Glucose (Misc Panel) 142H 04/16/19 20:58: Bedside Glucose (Misc Panel) 92 04/17/19 05:58: Nucleated Red Blood Cells % (auto) 0.4H, Anion Gap 6L, Glomerular Filtration Rate 26.3L, Blood Urea Nitrogen 34H, Creatinine 2.08H, Sodium Level 140, Potassium Level 3.0L, Chloride Level 98, Carbon Dioxide Level 36H, Calcium Level 8.3L, Aspartate Amino Transf (AST/SGOT) 48H, Alanine Aminotransferase (ALT/SGPT) 22, Alkaline Phosphatase 175H, Total Bilirubin 1.8H, Total Protein 6.7, Albumin 2.1L, Magnesium Level 2.0, Albumin/Globulin Ratio 0.46L 04/17/19 11:58: Bedside Glucose (Misc Panel) 98 CBC/BMP Laboratory Tests 04/17/19 05:58 Red Blood Count 2.71 L, Mean Corpuscular Volume 98.5 H, Mean Corpuscular Hemoglobin 28.4, Mean Corpuscular Hemoglobin Concent 28.8 L, Red Cell Distribution Width 27.5 H, Calcium Level 8.3 L, Aspartate Amino Transf (AST/SGOT) 48 H, Alanine Aminotransferase (ALT/SGPT) 22, Alkaline Phosphatase 17 5 H, Total Bilirubin 1.8 H, Total Protein 6.7, Albumin 2.1 L Microbiology Microbiology 04/08/19 Blood Culture - Final, Complete NO GROWTH AFTER 5 DAYS 04/08/19 Blood Culture - Final, Complete NO GROWTH AFTER 5 DAYS 04/09/19 Urine Culture - Final, Complete RADHA NEWTON MD Apr 17, 2019 14:09
[2019-04-17] MEDS: rOPINIRole 1MG TAB PO SCH (21:32)
[2019-04-17 22:00] VITALS: BP 110/65
[2019-04-18] MEDS: METOPROLOL TART 12.5 MG PER 1/2 TAB PO SCH ×2 (01:12→06:37)
[2019-04-18] MEDS: FUROSEMIDE 40 MG/4 ML VIAL (J1940) IV SCH ×2 (01:13→06:36)
[2019-04-18] MEDS: PERCOCET 5MG/325MG TAB PO PRN (03:28)
[2019-04-18 06:00] VITALS: BP 125/73
[2019-04-18] MEDS: LEVOTHYROXINE 25MCG TABLET (0.025MG) PO SCH (06:36)
[2019-04-18 07:03] LABS: HEMATOCRIT 27.7 % (36.0-47.0); HEMOGLOBIN 7.9 g/dl (12.0-15.5); MEAN CORPUSCULAR HEMOGLOBIN 28.7 pg (27.0-33.0); MEAN CORPUSCULAR HGB CONC 28.5 g/dl (32.0-36.5); MEAN CORPUSCULAR VOLUME 100.7 fl (80.0-96.0); PLATELET COUNT, AUTOMATED 220 10^3/uL (150-450); RED BLOOD COUNT 2.75 10^6/uL (4.00-5.40)
[2019-04-18] MEDS: HumaLOG INSULIN (NovoLOG) PER UNIT SC SCH (07:30)
[2019-04-18 07:34] LABS: ALBUMIN 2.1 GM/DL (3.2-5.2); BILIRUBIN,TOTAL 1.4 MG/DL (0.2-1.0); CALCIUM LEVEL 8.2 MG/DL (8.5-10.1); CREATININE FOR GFR 2.39 MG/DL (0.55-1.30); GLOMERULAR FILTRATION RATE 22.4 (>51); POTASSIUM SERUM 3.5 MEQ/L (3.5-5.1); TOTAL PROTEIN 6.9 GM/DL (6.4-8.2)
[2019-04-18] MEDS: PREGABALIN 75 MG CAP(LYRICA) PO SCH (07:50)
[2019-04-18] MEDS: ROSUVASTATIN 10 MG TAB (CRESTOR) PO SCH (07:51)
[2019-04-18] MEDS: CitaloPRAM (CeleXA) 10 MG TABLET PO SCH (07:51)
[2019-04-18] MEDS: diphenhydrAMINE 50 MG CAP PO PRN (07:51)
[2019-04-18] MEDS: NYSTATIN 100,000 UNITS/GM TOPICAL PWD 15 GM TOP SCH (07:51)
[2019-04-18 07:52] VITALS: BP 127/78
[2019-04-18] MEDS: MULTIVITAMINS/MINERALS THERAP 1 TAB PO SCH (07:52)
[2019-04-18] MEDS: POTASSIUM CHLORIDE 10 MEQ SR TABLET PO SCH (07:52)
[2019-04-18] MEDS: SENOKOT S TAB PO SCH (07:52)
[2019-04-18] MEDS: AMIODARONE 200 MG TAB (PACERONE) PO SCH (07:52)
[2019-04-18] MEDS: PANTOPRAZOLE 40MG TAB (PROTONIX) PO SCH (07:52)
--- NOTE | 2019-04-18 08:57 | REP ---
CT ABDOMEN AND PELVIS WITHOUT CONTRAST: 04/17/2019. Clinical history: Worsened abdominal pain, evaluate for left lower quadrant hematoma size. Technique: No oral or IV contrast per request. Comparison: 04/08/2019. Findings: CT abdomen: Lung bases with some dependent atelectasis and linear chronic changes. No effusion or infiltrate. Heart size enlarged with heavily calcified mitral annulus and pacemaker wire. No pericardial thickening or effusion. Some midline upper abdominal ventral hernia with portion of the anterior aspect of the left lobe of the liver herniated into that gap which measures 0.7 cm diameter. Is not enlarged overall with 16 cm right hepatic lobe in the midclavicular line but the left lobe is enlarged. There is also splenomegaly with the spleen up to 14.2 cm in vertical height. Small hiatal hernia. Stomach unremarkable. Clips from prior cholecystectomy seen. Pancreas intact. Adrenal glands grossly normal. Kidneys are unchanged and without hydronephrosis. Atherosclerotic calcifications of the aorta without aneurysm. No periaortic or retroperitoneal lymphadenopathy. Lung window review of all CT slices shows no perforation or free air. I see no generalized ascites. Bones are unchanged with some degenerative disc changes lower thoracic spine. The visualized ribs without acute findings. Cutaneous fat shows diffuse soft tissue density consistent with edema and anasarca. In the left anterolateral abdominal wall is a 23.0 x 8.6 x 10.2 cm hematoma. On the previous study it was estimated at 20 x 10 x 10 cm. The hematoma itself appears similar or slightly larger. Diminished reaction around it, not much changed. CT pelvis: The bony pelvis is unchanged and without acute finding. Uterus absent. Vaginal cuff intact. Bladder only minimally filled. There is diverticulosis distal left colon. Appendix seen and normal. No diverticulitis, colitis, stricture or mass. No ascites in the pelvis. No ventral or inguinal hernia in the pelvis and there are some inguinal nodes on both sides up to 1.8 cm, enlarged which may be reactive adenopathy. Impression: 1. Hyperdense mass subcutaneous fat anterolateral abdominal wall on the left about 23.0 x 10.0 x 9.0 cm representing a hematoma whose size is the same or slightly larger. There is extensive anasarca and inflammatory response to the hematoma adjacent. 2. The left lobe of the liver, anterior margin protrudes through abdominal wall hernia as before. 3. Splenomegaly up to 14 cm without hepatomegaly. No ascites. 4. Cholecystectomy and hysterectomy, otherwise stable. Electronically Signed by Jose Manuel Kramer MD 04/18/2019 09:19 A
[2019-04-18] MEDS ORDERED: FURO40TA2 PO (10:27)
--- NOTE | 2019-04-18 11:47 | DS.PDOC ---
Discharge Summary General Date of Admission Apr 08, 2019 at 15:09 Date of Discharge 04/18/2019 Attending Physician: RADHA NEWTON MD Discharge Summary PROCEDURES PERFORMED DURING STAY: Central line placement. ADMITTING DIAGNOSES: 1. Coronary artery disease with chronic chest pain and chronically elevated troponins s/p recent negative cardiac cath. 2. Hypertrophic cardiomyopathy s/p septal myomectomy 2. 3. Diastolic congestive heart failure. 4. obstructive sleep apnea and noncompliant with CPAP 5. Dyslipidemia 6. Diabetes mellitus 7. Left bundle branch block 8. Mechanical mitral valve replacement s/p thrombosis and second mitral valve replacement with bioprosthetic valve 9. Chronic kidney disease 10. Asthma 11. Hypertension 12. Hypothyroidism 13. Versus leg syndrome 14. Gastroesophageal reflux disease 15. Anxiety/depression 16. Ventral hernia 17. atrial fibrillation anticoagulated status post pacer with an inappropriately placed lead 18. recent enterococcal bacteremia 19. Septic shock DISCHARGE DIAGNOSES: 1. Coronary artery disease with chronic chest pain and chronically elevated troponins s/p recent negative cardiac cath. 2. Hypertrophic cardiomyopathy s/p septal myomectomy 2. 3. Diastolic congestive heart failure. 4. obstructive sleep apnea and noncompliant with CPAP 5. Dyslipidemia 6. Diabetes mellitus 7. Left bundle branch block 8. Mechanical mitral valve replacement s/p thrombosis and second mitral valve replacement with bioprosthetic valve 9. Chronic kidney disease 10. Asthma 11. Hypertension 12. Hypothyroidism 13. Versus leg syndrome 14. Gastroesophageal reflux disease 15. Anxiety/depression 16. Ventral hernia 17. atrial fibrillation anticoagulated status post pacer with an inappropriately placed lead 18. recent enterococcal bacteremia, resolved COMPLICATIONS/CHIEF COMPLAINT: SHOCK. HISTORY OF PRESENT ILLNESS: 54-year-old female who presented at our facility as a transfer from [facility] for septic shock. She had multiple recent hospital admissions with recent transfer to [facility] for cardiac management. She did recently have a pacemaker placed. She was also recently treated for enterococcal bacteremia with daptomycin via a PICC line. It was reported that she presented to [facility] with abdominal pain and was found to have declining hemoglobin levels, intermittent fevers, hypotension, leukocytosis, and LUZ, which prompted her transfer to [facility]. She was also found to have a UTI at [facility], urine culture grew Klebsiella. On presentation [facility], the patient complained of left lower quadrant abdominal pain. HOSPITAL COURSE: Patient was admitted to the medical ICU. She was found to have a hematoma in the left lower flank and possible cellulitis along that area as well. She did appear to be hypotensive and requiring pressure support. She had an elevated lactic acid level as well. She was on levophed at the time of admission via a peripheral line. A central line was placed in order to continue and titrate down on levophed, she was discontinued on the levophed on 04/09. A PICC line was considered due to poor peripheral access. However, two IV sites were able to be obtained and this was no longer necessary. The central line was discontinued at this time. She was continued on the daptomycin and additionally started on meropenem for broad coverage. Blood cultures were drawn and came back negative, so she was discontinued from the daptomycin. She was continued and finished a seven-day course of the meropenem for her Klebsiella positive UTI. Urine culture obtained at [facility] was negative for bacterial growth. For her low hemoglobin levels, the patient received 2 units of RBCs during her admission. Her H/H were monitored daily and continued to be stable after the blood transfusions. Her anemia was thought to be related to her hematoma, and her home anticoagulation including warfarin and aspirin were held to help prevent further risk of bleeding. She was additionally found to be fairly fluid overloaded despite her presenting hypotension, with 3+ pitting edema in bilateral lower ext remities and crackles at both the lung bases. Once her blood pressure improved and stabilized, she was started on diuresis with IV Lasix, fluid restriction, and sodium restriction. Additionally, as her vital signs improved and stabilized, she was restarted on home medications including amiodarone, d iltiazem, and metoprolol, which had been held due to her hypotension. The patient diuresed well over the course of four days and found improvement in her shortness of breath. She will continue on lasix at discharge at an increased dose from her home dose in order to continue with adequate diuresis. The patient worked with PT and OT who evaluated her and assessed that she would benefit from further treatment at a short term rehab. On the day of discharge, the patient was found to be stable and safe for discharge to short term rehab. DISCHARGE MEDICATIONS: Please see below. ALLERGIES: Please see below. PHYSICAL EXAMINATION ON DISCHARGE: VITAL SIGNS: Please see below. GENERAL: Morbidly obese, alert, comfortable, sitting up in chair, no acute distress HEENT: PERRLA, EOMI, Moist mucous membranes NECK: supple, unable to assess for JVD due to body habitus CARDIOVASCULAR EXAMINATION: Distant heart sounds, normal S1 and S2 RESPIRATORY EXAMINATION: Distant breath sounds bilaterally due to body habitus ABDOMINAL EXAMINATION: Morbidly obese, anasarca and pitting edema along the lower left quadrant with some erythema, warmth, and discoloration, tenderness along the lower left quadrant, bowel sounds present. Other than the area of firmness where anasarca is present, the abdomen is soft. EXTREMITIES: No cyanosis, 3+ pitting edema in bilateral lower extremities with anasarca under the thighs. Calves are nontender. SKIN: intact, somewhat dry NEUROLOGICAL EXAMINATION: Alert and oriented 3 to person, place and time, cranial nerves II-XII grossly intact, no focal deficits appreciated PSYCHIATRIC EXAMINATION: Mood and affect normal LABORATORY DATA: Please see below. IMAGING: CXR 04/08: There is cardiomegaly with vascular congestion. Increased interstitial markings probably represents mild interstitial edema. Multiple sternal wires are present. There is a left pacemaker. There is a right central venous catheter with the tip in the superior vena cava. There is no pneumothorax. CT Abd/pelvis 04/08: 1. Ovoid hyperdense mass in the anterolateral aspect of the abdominal wall on the left measures approximately 20 x 10 x 10 cm consistent with an acute to subacute hematoma. Extensive inflammatory reaction surrounds the hematoma. 2. Anasarca. 3. Anterior margin of the left lobe of the liver protrudes through an upper abdominal hernia. 4. There is mild splenomegaly with a maximum span of 13.5 centimeters. No focal abnormalities demonstrated. 5. There has been a cholecystectomy. 6. There has been a hysterectomy. CT Abd/pelvis 04/18: 1. Hyperdense mass subcutaneous fat anterolateral abdominal wall on the left about 23.0 x 10.0 x 9.0 cm representing a hematoma whose size is the same or slightly larger. There is extensive anasarca and inflammatory response to the hematoma adjacent. 2. The left lobe of the liver, anterior margin protrudes through abdominal wall hernia as before. 3. Splenomegaly up to 14 cm without hepatomegaly. No ascites. 4. Cholecystectomy and hysterectomy, otherwise stable. PROGNOSIS: Fair ACTIVITY: As tolerated. DIET: Consistent carbohydrate with 2 gram sodium restriction and 1500mL fluid restriction DISCHARGE PLAN: Rehab at [facility] DISCHARGE INSTRUCTIONS: 1. Follow-up with your PCP in 7-10 days. 2. We have increased your morning Lasix dose to 60 mg. Continue to take 20 mg at night in addition to this. 3. Continue to restrict your fluid intake and salt intake. 4. We have held your home Coumadin and aspirin, due to the hematoma in your abdomen. You can discuss restarting these medications with your PCP. 5. If your symptoms return or your condition worsens, call your PCP or return to the emergency room for further evaluation. ITEMS TO FOLLOWUP ON ON OUTPATIENT: 1. CHF, assure adequate diuresis 2. Pacemaker with inappropriately placed lead 3. Hematoma 4. Continuation of anticoagulation DISCHARGE CONDITION: Stable TIME SPENT ON DISCHARGE: Greater than 35 minutes. Vital Signs/I&Os Vital Signs Date Time Temp Pulse Resp B/P (MAP) Pulse Ox O2 Delivery O2 Flow Rate FiO2 04/18/19 07:52 80 127/78 04/18/19 06:00 96.5 18 94 I&O- Last 24 Hours up to 6 AM 04/18/19 06:00 Intake Total 990 ml Output Total 1825 ml Balance -835 ml Laboratory Data Labs 24H Laboratory Tests 2 04/17/19 11:58: Bedside Glucose (Misc Panel) 98 04/17/19 16:41: Bedside Glucose (Misc Panel) 124H 04/17/19 20:57: Bedside Glucose (Misc Panel) 138H 04/18/19 06:18: Nucleated Red Blood Cells % (auto) 0.3H, Anion Gap 10, Glomerular Filtration Rate 22.4L, Blood Urea Nitrogen 37H, Creatinine 2.39H, Sodium Level 140, Potassium Level 3.5, Chloride Level 99, Carbon Dioxide Level 31, Calcium Level 8.2L, Aspartate Amino Transf (AST/SGOT) 48H, Alanine Aminotransferase (ALT/SGPT) 21, Alkaline Phosphatase 203H, Total Bilirubin 1.4H, Total Protein 6.9, Albumin 2.1L, Magnesium Level 2.0, Albumin/Globulin Ratio 0.44L CBC/BMP Laboratory Tests 04/18/19 06:18 Red Blood Count 2.75 L, Mean Corpuscular Volume 100.7 H, Mean Corpuscular Hemoglobin 28.7, Mean Corpuscular Hemoglobin Concent 28.5 L, Red Cell Distribution Width 27.8 H, Calcium Level 8.2 L, Aspartate Amino Transf (AST/SGOT) 48 H, Alanine Aminotransferase (ALT/SGPT) 21, Alkaline Phosphatase 203 H, Total Bilirubin 1.4 H, Total Protein 6.9, Albumin 2.1 L FSBS Laboratory Tests Test 04/17/19 11:58 04/17/19 16:41 04/17/19 20:57 Range/Units Bedside Glucose (Misc Panel) 98 124 138 70-105 MG/DL Microbiology Microbiology 04/08/19 Blood Culture - Final, Complete NO GROWTH AFTER 5 DAYS 04/08/19 Blood Culture - Final, Complete NO GROWTH AFTER 5 DAYS 04/09/19 Urine Culture - Final, Complete Discharge Medications Scheduled Allopurinol (Allopurinol) 100 Mg Tablet, 100 MG PO DAILY, (Reported) Amiodarone HCl (Amiodarone HCl) 200 Mg Tablet, 200 MG PO DAILY, (Reported) Citalopram Hydrobromide (Celexa) 10 Mg Tablet, 10 MG PO DAILY, (Reported) Diltiazem HCl (Diltiazem 12Hr ER) 60 Mg Cap.er.12h, 60 MG PO DAILY, (Reported) Furosemide (Furosemide) 20 Mg Tablet, 20 MG PO QPM, (Reported) Furosemide (Furosemide) 40 Mg Tablet, 60 MG PO DAILY Insulin Detemir (Levemir) 100 Unit/1 Ml Vial, 10 UNITS SC QHS, (Reported) L. Acidophilus/Pectin, Kern (Acidophilus Caplet) 1 Each Tablet, 1 TAB PO DAILY, (Reported) Levothyroxine Sodium (Levothyroxine Sodium) 25 Mcg Tablet, 25 MCG PO DAILY, ( Reported) Metoprolol Succinate (Metoprolol Succinate) 50 Mg Tab.er.24h, 100 MG PO BID, (Reported) Multivitamins (Thera M Plus Tablet) 1 Each Tablet, 1 TAB PO DAILY, (Reported) Nystatin (Nystatin Powder) 15 Gm Powder, 1 APPLIC TOP BID, (Reported) APPLY TO FOLDS OF SKIN Pantoprazole Sodium (Pantoprazole Sodium) 40 Mg Tablet.dr, 40 MG PO DAILY, (Reported) Pregabalin (Lyrica) 75 Mg Capsule, 75 MG PO BID, (Reported) Ropinirole HCl (Ropinirole HCl) 1 Mg Tablet, 2 MG PO QHS, (Reported) Rosuvastatin Calcium (Rosuvastatin Calcium) 40 Mg Tablet, 40 MG PO DAILY, (Reported) Scheduled PRN Albuterol Sulfate (Ventolin Hfa) 18 Gm Hfa.aer.ad, 2 PUFF INH Q4H PRN for SHORTNESS OF BREATH, (Reported) Cyclobenzaprine HCl (Cyclobenzaprine HCl) 10 Mg Tablet, 10 MG PO TID PRN for MUSCLE SPASMS, (Reported) Hydrocortisone (Hydrocortisone) 1% 28GM Cream..g., 1 APLCT TOP BID PRN for ITCHING, (Reported) APPLY TO AFFECTED AREA(S) Lorazepam (Lorazepam) 1 Mg Tablet, 1 MG PO BID PRN for ANXIETY, (Reported) Ondansetron (Ondansetron Odt) 4 Mg Tab.rapdis, 4 MG PO Q8H PRN for NAUSEA OR VOMITING, (Reported) Oxycodone HCl (Oxycodone HCl) 5 Mg Tablet, 5 MG PO TID PRN for PAIN, (Reported) Allergies Coded Allergies: azithromycin (Verified Allergy, Intermediate, HIVES, 04/08/19) cephalexin (Verified Allergy, Intermediate, HIVES, 04/08/19) doxycycline (Verified Allergy, Intermediate, HIVES, 04/08/19) morphine (Verified Allergy, Intermediate, HIVES, 04/08/19) atorvastatin (Verified Allergy, Unknown, 04/08/19) esomeprazole (Verified Allergy, Unknown, 04/08/19) guaifenesin (Verified Allergy, Unknown, MUCINEX, 04/08/19) JEFFERY PHILLIPS PGY-1 Apr 18, 2019 11:46
== END 2019-04-18 11:45 | DRG 871 ==
LOC: M ICU 15:09 → M MSPAV 04-11 17:30
PROVIDERS: ADMIT Internal Medicine; ATTEND Internal Medicine
PROC: 02HV33Z Insertion of Infusion Device into Superior Vena Cava, Percutaneous Approach (ICD-10-PCS; principal; 2019-04-08)
PROC: 30233N1 Transfusion of Nonautologous Red Blood Cells into Peripheral Vein, Percutaneous Approach (ICD-10-PCS; 2019-04-09)
DX: A41.9 Sepsis, unspecified organism (principal); R65.21 Severe sepsis with septic shock; I50.33 Acute on chronic diastolic (congestive) heart failure; I42.2 Other hypertrophic cardiomyopathy; I13.0 Hypertensive heart and chronic kidney disease with heart failure and stage 1 through stage 4 chronic kidney disease, or unspecified chronic kidney disease; N17.9 Acute kidney failure, unspecified; E87.2 Acidosis; N39.0 Urinary tract infection, site not specified; D62 Acute posthemorrhagic anemia; Z68.45 Body mass index [BMI] 70 or greater, adult; L03.311 Cellulitis of abdominal wall; E66.01 Morbid (severe) obesity due to excess calories; I25.10 Atherosclerotic heart disease of native coronary artery without angina pectoris; Z95.0 Presence of cardiac pacemaker; Z95.3 Presence of xenogenic heart valve; E78.5 Hyperlipidemia, unspecified; K43.9 Ventral hernia without obstruction or gangrene; I27.81 Cor pulmonale (chronic); G47.33 Obstructive sleep apnea (adult) (pediatric); B96.1 Klebsiella pneumoniae [K. pneumoniae] as the cause of diseases classified elsewhere; M10.9 Gout, unspecified; G25.81 Restless legs syndrome; E11.22 Type 2 diabetes mellitus with diabetic chronic kidney disease; N18.9 Chronic kidney disease, unspecified; J45.909 Unspecified asthma, uncomplicated; E03.9 Hypothyroidism, unspecified; M79.81 Nontraumatic hematoma of soft tissue; K21.9 Gastro-esophageal reflux disease without esophagitis; F41.9 Anxiety disorder, unspecified; F32.9 Major depressive disorder, single episode, unspecified; Z90.49 Acquired absence of other specified parts of digestive tract; Z95.5 Presence of coronary angioplasty implant and graft; Z87.891 Personal history of nicotine dependence; Z91.19 Patient's noncompliance with other medical treatment and regimen; Z79.899 Other long term (current) drug therapy; Z88.1 Allergy status to other antibiotic agents; Z88.5 Allergy status to narcotic agent; Z88.8 Allergy status to other drugs, medicaments and biological substances; Z86.711 Personal history of pulmonary embolism; Z79.01 Long term (current) use of anticoagulants

== ENCOUNTER 2019-05-04 16:34 | Inpatient (IN) | payer MEDICARE, MEDICAID ==
[~2019-05-04] VITALS: Ht 154.9 cm; Wt 172.3 kg
[~2019-05-04 16:34] MED LIST: ACIDTAB3 PO; ALLO100T PO; AMIO200T PO; ASPI81TA85 PO; CELE10TA PO; CURA1CRE2 TOP; CYCL10TA PO; DILT60CASR PO; ENOX120I3 SC; FURO20TA2 PO; FURO40TA2 PO; INSUDET SC; LEVO25TA5 PO; LORA1TAB12 PO; LOVE0.01 SC; LYRI75CA PO; METO1TAB7 PO; NYST1POW9 TOP; ONDA4TAB6 PO; OXYC-517 PO; PANT-23 PO; ROPI1TAB PO; ROSU40TA4 PO; VENTAER INH; VITMTA PO; WARF-58 PO
[2019-05-04 19:25] VITALS: BP 119/80
[2019-05-04] MEDS ORDERED: MAALOX 30 ML SUSP *UDC PO PRN (20:00)
[2019-05-04] MEDS ORDERED: GLUCAGON FOR INJ 1 MG VIAL (J1610) SC PRN (20:00)
[2019-05-04] MEDS ORDERED: DEXTROSE 50% 50 ML SYRINGE IV PRN (20:00)
[2019-05-04] MEDS ORDERED: MOM 30ML SUSPENSION UDC PO PRN (20:00)
[2019-05-04] MEDS ORDERED: GLUCOSE 4 GM CHEW TABLET PO PRN (20:00)
[2019-05-04] MEDS ORDERED: FERR325T18 PO (21:00)
[2019-05-04] MEDS ORDERED: WARF4TAB51 PO (21:00)
[2019-05-04] MEDS ORDERED: FURO40TA2 PO (21:00)
[2019-05-04] MEDS ORDERED: HEPARIN SOD (PORCINE) 5000 UNITS/ML VIAL SQ SCH (21:00)
[2019-05-04] MEDS ORDERED: LOVE0.8I3 SC (21:07)
[2019-05-04 21:18] LABS: HEMATOCRIT 29.8 % (36.0-47.0); HEMOGLOBIN 8.3 g/dl (12.0-15.5); MEAN CORPUSCULAR HEMOGLOBIN 27.3 pg (27.0-33.0); MEAN CORPUSCULAR HGB CONC 27.9 g/dl (32.0-36.5); PLATELET COUNT, AUTOMATED 239 10^3/uL (150-450); RED BLOOD COUNT 3.04 10^6/uL (4.00-5.40)
[2019-05-04 21:38] LABS: ALBUMIN 2.4 GM/DL (3.2-5.2); BILIRUBIN,TOTAL 1.2 MG/DL (0.2-1.0); CALCIUM LEVEL 8.1 MG/DL (8.5-10.1); CK-MB VALUE MASS 1.5 NG/ML (<3.6); CREATININE FOR GFR 2.34 MG/DL (0.55-1.30); MB/CK RELATIVE INDEX 2.94 (< OR =4); POTASSIUM SERUM 4.4 MEQ/L (3.5-5.1); TOTAL PROTEIN 6.9 GM/DL (6.4-8.2); TROPONIN I 0.14 NG/ML (< 0.10)
[2019-05-04 21:44] LABS: INR 1.68; PROTHROMBIN TIME 19.5 SECONDS (11.8-14.0)
[2019-05-04] MEDS ORDERED: ALBUTEROL SULFATE 2.5 MG/0.5 ML INH NEB SOLN NEB PRN (21:45)
[2019-05-04] MEDS: PREGABALIN 75 MG CAP(LYRICA) PO SCH (23:42)
[2019-05-04] MEDS: oxyCODONE 5MG TAB PO PRN (23:42)
[2019-05-04] MEDS: METOPROLOL SUCC (TopROL XL) 100MG *XL* TAB PO SCH (23:42)
[2019-05-05] MEDS: rOPINIRole 2MG TAB PO SCH ×2 (00:26→20:16)
--- NOTE | 2019-05-05 02:17 | HPEPDOC ---
General Date of Admission May 04, 2019 at 19:58 Date of Service: May 04, 2019 Chief Complaint The patient is a 54-year-old female admitted with a reason for visit of CHF. History of Present Illness 54f with morbid obesity, cad, hypertrophic cardiomyopathy s/p myomectomy, diastolic chf, jessica noncompliant with cpap, dm, ckd, bMVR, asthma, hypothyroid, afib, ppm with displaced lead, remote provoked pe, recent admission with vre bacteremia, abdominal hematoma, transferred here from OSH. Per report from the transferring hospital pt has been to their ER several times since being discharged from here. She has recurrent complaints of abdominal pain, water retention, and difficulty ambulating. She has apparently gained 12 lbs since discharge. a full ROS was performed and negative except as above Home Medications Scheduled Allopurinol (Allopurinol) 100 Mg Tablet, 100 MG PO DAILY, (Reported) Amiodarone HCl (Amiodarone HCl) 200 Mg Tablet, 200 MG PO DAILY, (Reported) Citalopram Hydrobromide (Celexa) 10 Mg Tablet, 10 MG PO DAILY, (Reported) Diltiazem HCl (Diltiazem 12Hr ER) 60 Mg Cap.er.12h, 60 MG PO DAILY, (Reported) Enoxaparin Sodium (Lovenox) 150 Mg/1 Ml Syringe, 150 MG SC DAILY, (Reported) Ferrous Sulfate (Ferrous Sulfate) 325 Mg Tablet, 325 MG PO DAILY, (Reported) Furosemide (Furosemide) 20 Mg Tablet, 20 MG PO QPM, (Reported) Furosemide (Furosemide) 40 Mg Tablet, 60 MG PO QAM, (Reported) Insulin Detemir (Levemir) 100 Unit/1 Ml Vial, 10 UNITS SC DAILY, (Reported) L. Acidophilus/Pectin, [place] (Acidophilus Caplet) 1 Each Tablet, 1 TAB PO DAILY, (Reported) Levothyroxine Sodium (Levothyroxine Sodium) 25 Mcg Tablet, 25 MCG PO DAILY, (Reported) Metoprolol Succinate (Metoprolol Succinate) 50 Mg Tab.er.24h, 100 MG PO BID, (Reported) Multivitamins (Thera M Plus Tablet) 1 Each Tablet, 1 TAB PO DAILY, (Reported) Nystatin (Nystatin Powder) 15 Gm Powder, 1 APPLIC TOP BID, (Reported) APPLY TO FOLDS OF SKIN Pantoprazole Sodium (Pantoprazole Sodium) 40 Mg Tablet., 40 MG PO DAILY, (Reported) Pregabalin (Lyrica) 75 Mg Capsule, 75 MG PO BID, (Reported) Ropinirole HCl (Ropinirole HCl) 1 Mg Tablet, 2 MG PO QHS, (Reported) Rosuvastatin Calcium (Rosuvastatin Calcium) 40 Mg Tablet, 40 MG PO DAILY, (Reported) Warfarin Sodium (Warfarin Sodium) 2 Mg Tablet, 4 MG PO DAILY, (Reported) Scheduled PRN Albuterol Sulfate (Ventolin Hfa) 18 Gm Hfa.aer.ad, 2 PUFF INH Q4H PRN for SHORTNESS OF BREATH, (Reported) Cyclobenzaprine HCl (Cyclobenzaprine HCl) 10 Mg Tablet, 10 MG PO TID PRN for MUSCLE SPASMS, (Reported) Hydrocortisone (Hydrocortisone) 1% 28GM Cream..g., 1 APLCT TOP BID PRN for ITCHING, (Reported) APPLY TO AFFECTED AREA(S) Lorazepam (Lorazepam) 1 Mg Tablet, 1 MG PO BID PRN for ANXIETY, (Reported) Ondansetron (Ondansetron Odt) 4 Mg Tab.rapdis, 4 MG PO Q8H PRN for NAUSEA OR VOMITING, (Reported) Oxycodone HCl (Oxycodone HCl) 5 Mg Tablet, 5 MG PO TID PRN for PAIN, (Reported) Allergies Coded Allergies: azithromycin (Verified Allergy, Intermediate, HIVES, 04/08/19) cephalexin (Verified Allergy, Intermediate, HIVES, 04/08/19) doxycycline (Verified Allergy, Intermediate, HIVES, 04/08/19) morphine (Verified Allergy, Intermediate, HIVES, 04/08/19) atorvastatin (Verified Allergy, Unknown, 04/08/19) esomeprazole (Verified Allergy, Unknown, 04/08/19) guaifenesin (Verified Allergy, Unknown, MUCINEX, 04/08/19) Family History Significant Family History: No pertinent family hx Social History * Smoker: former Smoker Alcohol: Denies Drugs: denies A-FIB/CHADSVASC A-FIB History Current/History of A-Fib/PAF?: Yes Current PO Anticoag Therapy: Yes Age/Risk Factor Scoring CHADSVASC: CHADSVASC Response (Comments) Value Age Risk Factor Age < 65 years old 0 Gender Risk Factor Female 1 Hx of CHF Yes 1 Hx of HTN Yes 1 Hx of Stroke/TIA/or VTE Yes 2 Hx of Diabetes Yes 1 Hx of Vascular Disease No 0 Total 6 Treatment Treatment ordered: Warfarin Physical Examination General Exam: Positive: Alert, Cooperative, No Acute Distress, Other (obese) Eye Exam: Positive: PERRLA, Conjunctiva & lids normal, EOMI; Negative: Sclera icteric ENT Exam: Positive: Atraumatic, Mucous membr. moist/pink, Pharynx Normal Neck Exam: Positive: Supple, JVD; Negative: thyromegaly Chest Exam: Positive: Diminished Heart Exam: Positive: Tachycardic, Irregular Rhythm, Normal S1, Normal S2, Murmurs Abdomen Exam: Positive: Normal bowel sounds, Soft; Negative: Tenderness, Hepatospenomegaly Extremity Exam: Positive: Edema, Normal pulses; Negative: Clubbing, Cyanosis Skin Exam: Positive: Nl turgor and temperature; Negative: Breakdown, Lesion Neuro Exam: Positive: Normal Gait, Normal Speech, Cranial Nerves 3-12 NL, Reflexes 2+ Psych Exam: Positive: Mental status NL, Mood NL, Oriented x 3 Vital Signs Vital Signs Date Time Temp Pulse Resp B/P (MAP) Pulse Ox O2 Delivery O2 Flow Rate FiO2 05/05/19 00:12 18 05/04/19 23:42 111 119/80 05/04/19 19:25 96.9 94 2.0 Laboratory Data Labs 24H Laboratory Tests 2 05/04/19 20:56: Prothrombin Time 19.5H, Prothromb Time International Ratio 1.68, Anion Gap 5L, Glomerular Filtration Rate 23.0L, Blood Urea Nitrogen 22H, Creatinine 2.34H, Sodium Level 141, Potassium Level 4.4, Chloride Level 106, Carbon Dioxide Level 30, Calcium Level 8.1L, Aspartate Amino Transf (AST/SGOT) 46H, Alanine Aminotransferase (ALT/SGPT) 28, Total Creatine Kinase 51, Alkaline Phosphatase 169H, Total Bilirubin 1.2H, Total Protein 6.9, Albumin 2.4L, Creatine Kinase MB 1.5, Creatine Kinase MB Relative Index 2.94, Troponin I 0.14H, NV-Ncl-O-Type Natriuretic Peptide 3977H, Albumin/Globulin Ratio 0.53L 05/04/19 20:57: Nucleated Red Blood Cells % (auto) 0.2H, Lactic Acid Level 1.4 CBC/BMP Laboratory Tests 05/04/19 20:56 Calcium Level 8.1 L, Aspartate Amino Transf (AST/SGOT) 46 H, Alanine Aminotransferase (ALT/SGPT) 28, Total Creatine Kinase 51, Alkaline Phosphatase 169 H, Total Bilirubin 1.2 H, Total Protein 6.9, Albumin 2.4 L 05/04/19 20:57 Red Blood Count 3.04 L, Mean Corpuscular Volume 98.0 H, Mean Corpuscular Hemoglobin 27.3, Mean Corpuscular Hemoglobin Concent 27.9 L, Red Cell Distribution Width 21.4 H Microbiology Microbiology 05/04/19 Blood Culture, Received Pending Assessment/Plan 54f with decompensated diastolic chf acute on chronic diastolic chf will attempt iv diuresis may require resuming metolazone echo done here last month, no systolic dysfunction noted, prosthetic valve ok restrict salt daily weights Is/Os CKD creatinine at baseline avoid nephrotoxins JESSICA hx of noncompliance will resume cpap dm diabetic diet monitor fingersticks sliding scale coverage continue daily levemir afib continue amio and toprol had been on 60mg cardizem daily? will try 30mg tid and adjust accordingly continue lovenox bridge to coumadin anemia/hematoma hgb appears stable at 8 on AC pt with multiple antibodies per blood bank will need to order from [place] if she needs transfusion abdominal pain benign exam pain not localized may be related to hernia, hematoma, etc Plan / VTE VTE Prophylaxis Ordered?: Yes JENNIFER COLÓN MD May 05, 2019 02:17
[2019-05-05] MEDS: LEVOTHYROXINE 25MCG TABLET (0.025MG) PO SCH (05:46)
[2019-05-05 06:00] VITALS: BP 117/80
[2019-05-05 06:23] LABS: BASO # 0.1 10^3/uL (0.0-0.2); BASO % 1.1 % (0.0-1.0); EOS # 0.5 10^3/uL (0.0-0.5); EOS % 5.7 % (0.0-3.0); HEMATOCRIT 30.3 % (36.0-47.0); HEMOGLOBIN 8.5 g/dl (12.0-15.5); LYMPH # 1.9 10^3/uL (1.5-5.0); LYMPH % 21.5 % (24.0-44.0); MEAN CORPUSCULAR HEMOGLOBIN 28.1 pg (27.0-33.0); MEAN CORPUSCULAR HGB CONC 28.1 g/dl (32.0-36.5); MONO # 0.9 10^3/uL (0.0-0.8); MONO % 10.3 % (0.0-5.0); NEUTROPHILS # 5.4 10^3/uL (1.5-8.5); NEUTROPHILS % 60.8 % (36.0-66.0); PLATELET COUNT, AUTOMATED 233 10^3/uL (150-450); RED BLOOD COUNT 3.03 10^6/uL (4.00-5.40); WHITE BLOOD COUNT 8.9 10^3/uL (4.0-10.0)
[2019-05-05 06:46] LABS: INR 1.81; PROTHROMBIN TIME 20.7 SECONDS (11.8-14.0)
[2019-05-05 06:47] LABS: PARTIAL THROMBOPLASTIN TIME 37.5 SECONDS (25.0-38.4)
[2019-05-05 06:52] LABS: CALCIUM LEVEL 8.6 MG/DL (8.5-10.1); CREATININE FOR GFR 2.38 MG/DL (0.55-1.30); GLOMERULAR FILTRATION RATE 22.5 (>51); POTASSIUM SERUM 4.2 MEQ/L (3.5-5.1)
--- NOTE | 2019-05-05 07:39 | REP ---
Clinical: Shortness of breath. CHF . Comparison: 04/08/2019 . Findings: The mediastinum and cardiac silhouette are stable and within normal limits for portable technique. Prior sternotomy and CABG. The lung kumar are clear without acute consolidation, effusion, or pneumothorax. Skeletal structures are intact. Impression: No acute cardiopulmonary process appreciated. Electronically Signed by Austin Lee MD 05/05/2019 07:31 A
--- NOTE | 2019-05-05 08:51 | IPNPDOC ---
Subjective Date Seen The patient was seen on 05/05/19. Subjective Chief Complaint/HPI Pt was examined at bedside today. She reported chronic right sided chest wall pain. Mildly worsening dyspnea with productive cough that started 2-3 days ago. Reported bilateral lower abd pain but mainly on the left; she also reported urinary hesitancy. She reported it took longer for her to urinate and only had 1 episode of urination since admission; denies dysuria, fever, chills, nausea, or vomiting. It was noted that she had a hematoma in the left subcutaneous abdominal wall. Pt also reported chronic righ sided chest infraclavicular pain but stated there has been no change from baseline. General: Reports: Other Symptoms (sleepy); Denies: Chills Constitutional: Denies: Chills, Fever Gastrointestinal: Reports: Abdominal Pain (B/l lower quadrant, mainly on left); Denies: Nausea, Vomiting Objective Physical Examination General Exam: Positive: Alert, Cooperative, No Acute Distress, Other (Alert but sleepy, obese) Eye Exam: Positive: Conjunctiva & lids normal; Negative: Sclera icteric ENT Exam: Positive: Atraumatic, Mucous membr. moist/pink Neck Exam: Positive: Supple; Negative: thyromegaly Chest Exam: Positive: Diminished Heart Exam: Positive: Tachycardic, Normal S1, Normal S2 Abdomen Exam: Positive: Normal bowel sounds, Soft, Tenderness (B/l outer lower quadrant), Other (mild distention on left); Negative: Hepatospenomegaly Extremity Exam: Positive: Edema (pitting), Normal pulses; Negative: Clubbing, Cyanosis Skin Exam: Positive: Nl turgor and temperature; Negative: Breakdown, Lesion Neuro Exam: Positive: Normal Speech Psych Exam: Positive: Mental status NL, Mood NL, Oriented x 3 Assessment /Plan Assessment 1. Acute on chronic diastolic chf -On IV Lasix 40mg Q6H -may require resuming metolazone -echo done here last month, no systolic dysfunction noted, prosthetic valve ok -2g Na restriction - daily weights amd I&O -Fluid restriction 1500ml 2. CKD -creatinine around baseline -avoid nephrotoxins 3. Abd pain likely 2/2 hematoma - repeat CT abd/pelvis showed hematoma unchanged from prior - Abd soft with mild distention on LLQ; no guarding. Pain and tenderness on B/l LQ worse on left. - Repeat CT abd showed subcutaneous hematoma unchanged from prior - Will cont to monitor at this time; consider d/c warfarin if symptoms worsen - Pt also reported urinary retention, s/p 1 straight cath - bladder scan ordered with straight cath PRN 4. Normocytic anemia, likely 2/2 subcutaneous wall blood loss/hematoma -Hgb 8.5, improved compared to march -Pt with multiple antibodies; it is noted that blood bank reported will need to order from [place] if she needs transfusion 5. SIGIFREDO - hx of noncompliance - Inpt CPAP, will use own CPAP 6. Diabetes mellitus -2g Na diet with calorie count -POC AC&HS -Cont daily and sliding scale coverage 7. A.fib -continue amio, metoprolol, and warfarin -INR 1.68->1.81; cont to f/u as it is likely d/t missing dose also pt has subcutaneous abd hematoma 8. Elevated trop -Elevated trop 0.14->0.14. May be d/t underlying CKD -Pt reported chronic chest pain/chest wall pain on right infraclavicular region non-tender to palpation; reported at baseline -repeat trop at 1800 I saw and evaluated the patient. I agree with the findings and plan of care as documented in the above note Plan/VTE VTE Prophylaxis Ordered?: Yes VS[facility]O Vital Signs Date Time Temp Pulse Resp B/P (MAP) Pulse Ox O2 Delivery O2 Flow Rate FiO2 05/05/19 06:00 98.5 109 16 117/80 (92) 93 05/04/19 19:25 2.0 I&O- Last 24 Hours up to 6 AM 05/05/19 06:00 Intake Total 750 ml Output Total 0 ml Balance 750 ml Laboratory Data 24H LABS Laboratory Tests 2 05/04/19 20:56: Prothrombin Time 19.5H, Prothromb Time International Ratio 1.68, Anion Gap 5L, Glomerular Filtration Rate 23.0L, Blood Urea Nitrogen 22H, Creatinine 2.34H, Sodium Level 141, Potassium Level 4.4, Chloride Level 106, Carbon Dioxide Level 30, Calcium Level 8.1L, Aspartate Amino Transf (AST/SGOT) 46H, Alanine Aminotransferase (ALT/SGPT) 28, Total Creatine Kinase 51, Alkaline Phosphatase 169H, Total Bilirubin 1.2H, Total Protein 6.9, Albumin 2.4L, Creatine Kinase MB 1.5, Creatine Kinase MB Relative Index 2.94, Troponin I 0.14H, KJ-Gpy-B-Type Natriuretic Peptide 3977H, Albumin/Globulin Ratio 0.53L 05/04/19 20:57: Nucleated Red Blood Cells % (auto) 0.2H, Lactic Acid Level 1.4 05/05/19 06:06: Prothrombin Time 20.7H, Prothromb Time International Ratio 1.81, Anion Gap 8, Glomerular Filtration Rate 22.5L, Blood Urea Nitrogen 23H, Creatinine 2.38H, Sodium Level 141, Potassium Level 4.2, Chloride Level 104, Carbon Dioxide Level 29, Calcium Level 8.6, Nucleated Red Blood Cells % (auto) 0.2H, Immature Granulocyte % (Auto) 0.6, White Blood Count 8.9, Red Blood Count 3.03L, Hemoglobin 8.5L, Hematocrit 30.3L, Mean Corpuscular Volume 100.0H, Mean Corpuscular Hemoglobin 28.1, Mean Corpuscular Hemoglobin Concent 28.1L, Red Cell Distribution Width 21.3H, Platelet Count 233, Neutrophils (%) (Auto) 60.8, Lymphocytes (%) (Auto) 21.5L, Monocytes (%) (Auto) 10.3H, Eosinophils (%) (Auto) 5.7H, Basophils (%) (Auto) 1.1H, Neutrophils # (Auto) 5.4, Lymphocytes # (Auto) 1.9, Monocytes # (Auto) 0.9H, Eosinophils # (Auto) 0.5, Basophils # (Auto) 0.1, Activated Partial Thromboplast Time 37.5 05/05/19 06:50: Urine Color KALI, Urine Appearance CLOUDYH, Urine pH 5.0, Urine Specific Grav ity 1.015, Urine Protein NEGATIVE, Urine Glucose (UA) NEGATIVE, Urine Ketones NEGATIVE, Urine Blood 1+H, Urine Nitrite NEGATIVE, Urine Bilirubin NEGATIVE, Urine Urobilinogen 4.0H, Urine Leukocyte Esterase 3+H, Urine WBC (Auto) TNTCH, Urine RBC (Auto) 4H, Urine Hyaline Casts (Auto) 6, Urine Bacteria (Auto) 2+H, Urine Squamous Epithelial Cells 0, Urine Mucus (Auto) SMALL, Urine Sperm (Auto) CBC/BMP Laboratory Tests 05/04/19 20:56 Calcium Level 8.1 L, Aspartate Amino Transf (AST/SGOT) 46 H, Alanine Aminotransferase (ALT/SGPT) 28, Total Creatine Kinase 51, Alkaline Phosphatase 169 H, Total Bilirubin 1.2 H, Total Protein 6.9, Albumin 2.4 L 05/04/19 20:57 Red Blood Count 3.04 L, Mean Corpuscular Volume 98.0 H, Mean Corpuscular Hemoglobin 27.3, Mean Corpuscular Hemoglobin Concent 27.9 L, Red Cell Distribution Width 21.4 H 05/05/19 06:06 Calcium Level 8.6, Red Blood Count 3.03 L, Mean Corpuscular Volume 100.0 H, Mean Corpuscular Hemoglobin 28.1, Mean Corpuscular Hemoglobin Concent 28.1 L, Red Cell Distribution Width 21.3 H, Neutrophils (%) (Auto) 60.8, Lymphocytes (%) (Auto) 21.5 L, Monocytes (%) (Auto) 10.3 H, Eosinophils (%) (Auto) 5.7 H, Basophils (%) (Auto) 1.1 H, Neutrophils # (Auto) 5.4, Lymphocytes # (Auto) 1.9, Monocytes # (Auto) 0.9 H, Eosinophils # (Auto) 0.5, Basophils # (Auto) 0.1 Microbiology Microbiology 05/04/19 Blood Culture, Received Pending 05/05/19 Urine Culture, Received Pending TONY BAHENA DO May 05, 2019 08:51 RADHA NEWTON MD May 07, 2019 10:38
[2019-05-05] MEDS: HumaLOG INSULIN (NovoLOG) PER UNIT SC SCH ×3 (08:57→16:41)
[2019-05-05] MEDS: LEVEMIR (INSULIN DETEMIR) 1 UNITS/0.01ML SC SCH (08:58)
[2019-05-05] MEDS: PREGABALIN 75 MG CAP(LYRICA) PO SCH ×2 (08:58→20:16)
[2019-05-05] MEDS: FERROUS SULFATE 325MG TAB PO SCH (08:58)
[2019-05-05] MEDS: MULTIVITAMINS/MINERALS THERAP 1 TAB PO SCH (08:58)
[2019-05-05] MEDS: AMIODARONE 200 MG TAB (PACERONE) PO SCH (08:58)
[2019-05-05] MEDS: ALLOPURINOL 100 MG TAB PO SCH (08:58)
[2019-05-05] MEDS: CitaloPRAM (CeleXA) 10 MG TABLET PO SCH (08:58)
[2019-05-05] MEDS: PANTOPRAZOLE 40MG TAB (PROTONIX) PO SCH (08:59)
[2019-05-05] MEDS: METOPROLOL SUCC (TopROL XL) 100MG *XL* TAB PO SCH ×2 (08:59→20:17)
[2019-05-05] MEDS ORDERED: ENOXAPARIN 150 MG/ML SYR (J1650) SC SCH (09:00)
[2019-05-05] MEDS ORDERED: FUROSEMIDE 40 MG/4 ML VIAL (J1940) IV SCH (09:00)
--- NOTE | 2019-05-05 10:48 | REP ---
Clinical: Follow up abdominal wall hematoma. Technique: Axial noncontrast images from the lung bases to the pubic symphysis with coronal and sagittal re-formations. Comparison: 04/17/2019. Findings: The known hematoma in the left subcutaneous soft tissues of the abdominopelvic wall is essentially unchanged in size and measures approximately 23.4 x 9.4 x 10.8 cm. Diffuse anasarca/infiltration throughout the subcutaneous tissues (right greater than left) is again identified and similar to prior examination as well. The infrathoracic/supraumbilical midline ventral hernia containing portion of the left lobe of the liver is again identified and unchanged. The spleen remains stable in contour and size. The pancreas, bilateral adrenal glands and kidneys are grossly normal for noncontrast evaluation and stable. Evidence for prior cholecystectomy. The enteric system is without obstruction or acute inflammatory process. Few scattered sigmoid diverticula noted without acute diverticulitis. Pelvis demonstrates normal bladder and evidence for prior hysterectomy. No ascites. No free air. No adenopathy. Abdominal aorta without aneurysm. Osseous structures demonstrate age-related changes. Lung bases demonstrate chronic interstitial changes with mild new bibasilar atelectasis (record left). Impression: 1. Hematoma in the left subcutaneous abdominopelvic wall is essentially unchanged in appearance and size. 2. Extensive anasarca and subcutaneous edema throughout the abdomen and pelvis (right greater than left) unchanged. 3. No new acute abdominopelvic pathology appreciated. Chronic findings as noted above remains stable. 4. Mild bibasilar atelectasis. Electronically Signed by Austin Lee MD 05/05/2019 10:40 A
[2019-05-05] MEDS: NYSTATIN 100,000 UNITS/GM TOPICAL PWD 15 GM TOP PRN (12:28)
[2019-05-05] MEDS: oxyCODONE 5MG TAB PO PRN ×2 (12:30→20:20)
[2019-05-05 14:00] VITALS: BP 115/74
[2019-05-05] MEDS: FUROSEMIDE 40 MG/4 ML VIAL (J1940) IV SCH ×2 (16:30→20:16)
[2019-05-05] MEDS: WARFARIN SOD 4 MG TAB PO SCH (16:31)
[2019-05-05] MEDS: ROSUVASTATIN 10 MG TAB (CRESTOR) PO SCH (18:44)
[2019-05-05 19:00] VITALS: BP 115/70
[2019-05-06] MEDS: FUROSEMIDE 40 MG/4 ML VIAL (J1940) IV SCH ×6 (02:35→23:50)
[2019-05-06 05:47] VITALS: BP 110/72
[2019-05-06] MEDS: LEVOTHYROXINE 25MCG TABLET (0.025MG) PO SCH (06:01)
[2019-05-06] MEDS: HumaLOG INSULIN (NovoLOG) PER UNIT SC SCH ×3 (07:30→17:00)
[2019-05-06 07:45] LABS: HEMATOCRIT 31.1 % (36.0-47.0); HEMOGLOBIN 8.8 g/dl (12.0-15.5); MEAN CORPUSCULAR HEMOGLOBIN 28.6 pg (27.0-33.0); MEAN CORPUSCULAR HGB CONC 28.3 g/dl (32.0-36.5); PLATELET COUNT, AUTOMATED 219 10^3/uL (150-450); RED BLOOD COUNT 3.08 10^6/uL (4.00-5.40); WHITE BLOOD COUNT 8.6 10^3/uL (4.0-10.0)
[2019-05-06 07:56] LABS: INR 2.27; PROTHROMBIN TIME 24.9 SECONDS (11.8-14.0)
[2019-05-06 08:09] LABS: CALCIUM LEVEL 8.6 MG/DL (8.5-10.1); CREATININE FOR GFR 2.36 MG/DL (0.55-1.30); GLOMERULAR FILTRATION RATE 22.7 (>51); POTASSIUM SERUM 4.1 MEQ/L (3.5-5.1)
[2019-05-06] MEDS: FERROUS SULFATE 325MG TAB PO SCH (08:34)
[2019-05-06] MEDS: MULTIVITAMINS/MINERALS THERAP 1 TAB PO SCH (08:34)
[2019-05-06] MEDS: LEVEMIR (INSULIN DETEMIR) 1 UNITS/0.01ML SC SCH (08:34)
[2019-05-06] MEDS: CitaloPRAM (CeleXA) 10 MG TABLET PO SCH (08:35)
[2019-05-06] MEDS: ALLOPURINOL 100 MG TAB PO SCH (08:35)
[2019-05-06] MEDS: PREGABALIN 75 MG CAP(LYRICA) PO SCH ×2 (08:35→20:44)
[2019-05-06] MEDS: AMIODARONE 200 MG TAB (PACERONE) PO SCH (08:35)
[2019-05-06] MEDS: PANTOPRAZOLE 40MG TAB (PROTONIX) PO SCH (08:35)
[2019-05-06] MEDS: METOPROLOL SUCC (TopROL XL) 100MG *XL* TAB PO SCH ×2 (08:36→21:00)
[2019-05-06] MEDS: oxyCODONE 5MG TAB PO PRN (08:37)
--- NOTE | 2019-05-06 10:29 | IPNPDOC ---
Subjective Date Seen The patient was seen on 05/06/19. Subjective Chief Complaint/HPI Patient is examined today at bedside. She appears to be very sleepy and stated she usually is not this sleepy. Reported some dyspnea. Denies wheezing or coughing. Remaining of ROS was limited as pt keeps falling asleep during the conversation despite multiple attempts questioning Pulmonary: Reports: Dyspnea; Denies: Cough Cardiovascular: Denies: Chest Pain Objective Physical Examination General Exam: Positive: Alert, Cooperative, No Acute Distress, Other (sleepy, obese) Eye Exam: Positive: Conjunctiva & lids normal; Negative: Sclera icteric ENT Exam: Positive: Atraumatic, Mucous membr. moist/pink, Other ENT (nasal canula in place) Neck Exam: Positive: Supple; Negative: thyromegaly Chest Exam: Positive: Diminished Heart Exam: Positive: Tachycardic, Normal S1, Normal S2 Abdomen Exam: Positive: Normal bowel sounds, Soft, Other (mild to mod distention on left. Pt indicated no tenderness upon palpation in all 4 quadrants); Negative: Hepatospenomegaly Extremity Exam: Positive: Edema (b/l, pitting), Normal pulses; Negative: Clubbing, Cyanosis Skin Exam: Positive: Nl turgor and temperature; Negative: Breakdown, Lesion Neuro Exam: Positive: Other (Sleepy but when answering, pt answering questions appropriately) Psych Exam: Positive: Other Assessment /Plan Assessment 1. Acute on chronic diastolic chf -On IV Lasix 40mg Q6H. Creatinine grossly unchanged compared to prior. Consider down-titrating -may require resuming metolazone -echo done 03/2019 showed no systolic dysfunction noted. Bioprosthetic mitral valve present -2g Na restriction - daily weights amd I&O. Urine output wasnt able to be recorded d/t incontinent voids -Fluid restriction 1500ml 2. CKD -creatinine around baseline -avoid nephrotoxins 3. Bacteremia - Gram pos cocci in clusters in blood cx X1 - RR and BP stable. Pt denies chest pain today. Afebrile - Echo done 03/2019 noted could not rule out a valvular vegetation in light of the technically difficult study - We will hold off on repeating echo at this time d/t absence of fever or leukocytosis. Chest pain resolved - UA indicated leukocyte esterase; urine cx pending. Pt indicated no dysuria but pos with urinary retention. - Start Daptomycin IV d/t noted PMH of VRE infection 4. Abd pain likely 2/2 hematoma - repeat CT abd/pelvis showed hematoma unchanged from prior - Abd soft with mild distention on LLQ; no guarding. Pt excessively sleepy for abd pain info to be obtained today - Repeat CT abd showed subcutaneous hematoma unchanged from prior - Per team discussion will cont to monitor at this time as hematoma may regress spontaneously; consider d/c warfarin if symptoms worsen - Pt also reported urinary retention, s/p 1 straight cath - bladder scan ordered with straight cath PRN 5. Normocytic anemia, likely 2/2 subcutaneous wall blood loss/hematoma -Hgb 8.8, improved compared to march. Stable/improved likely d/t diuresis -Pt with multiple antibodies; it is noted that blood bank reported will need to order from [place] if she needs transfusion 6. SIGIFREDO - Hx of noncompliance - Inpt CPAP, will use own CPAP 7. Diabetes mellitus -2g Na diet with calorie count -POC AC&HS -Cont daily and sliding scale coverage 8. A.fib -continue amio, metoprolol, and warfarin -INR now 2.27. INR was subtherapeutic at 1.6; cont to f/u as it is likely d/t missing dose also pt has subcutaneous abd hematoma -Cont to f/u with INR 9. Elevated trop -Elevated trop 0.14->0.14->0.14. May be d/t underlying CKD -Initially reported chronic chest pain/chest wall pain on right infraclavicular region non-tender to palpation which she stated at baseline. Now resolved 10. Chronic back pain, likely 2/2 body habitus -oxycodone d/c as pt appeared drowsy/excessively sleepy -Cyclobenzaprine and tylenol PRN. K-pad I saw and evaluated the patient. I agree with the findings and plan of care as documented in the above note Plan/VTE VTE Prophylaxis Ordered?: Yes VS, I&O, 24H, Fishbone Vital Signs/I&O Vital Signs Date Time Temp Pulse Resp B/P (MAP) Pulse Ox O2 Delivery O2 Flow Rate FiO2 05/06/19 09:07 22 05/06/19 08:37 94 05/06/19 08:36 105 112/70 05/06/19 05:47 96.3 2.0 I&O- Last 24 Hours up to 6 AM 05/06/19 06:00 Intake Total 1135 ml Output Total 300 ml Balance 835 ml Laboratory Data 24H LABS Laboratory Tests 2 05/05/19 11:11: Bedside Glucose (Misc Panel) 111H 05/05/19 12:07: Troponin I 0.14H 05/05/19 16:32: Bedside Glucose (Misc Panel) 92 05/05/19 17:44: Troponin I 0.14H 05/05/19 21:58: Bedside Glucose (Misc Panel) 133H 05/06/19 07:33: Nucleated Red Blood Cells % (auto) 0.0, Prothrombin Time 24.9H, Prothromb Time International Ratio 2.27, Anion Gap 5L, Glomerular Filtration Rate 22.7L, Blood Urea Nitrogen 24H, Creatinine 2.36H, Sodium Level 138, Potassium Level 4.1, Chloride Level 103, Carbon Dioxide Level 30, Calcium Level 8.6 CBC/BMP Laboratory Tests 05/06/19 07:33 Red Blood Count 3.08 L, Mean Corpuscular Volume 101.0 H, Mean Corpuscular Hemoglobin 28.6, Mean Corpuscular Hemoglobin Concent 28.3 L, Red Cell Distribution Width 21.6 H, Calcium Level 8.6 Microbiology Microbiology 05/05/19 Blood Culture - Preliminary, Resulted No growth after 24 hours . All specim... 05/04/19 Blood Culture - Preliminary, Resulted 05/05/19 Urine Culture, Received Pending TONY BAHENA DO May 06, 2019 10:29 RADHA NEWTON MD May 07, 2019 10:45
[2019-05-06 14:00] VITALS: BP 108/72
[2019-05-06] MEDS ORDERED: NS IV SCH (15:00)
[2019-05-06] MEDS ORDERED: DAPTOMYCIN IV SCH (15:00)
[2019-05-06] MEDS: WARFARIN SOD 4 MG TAB PO SCH (16:59)
[2019-05-06] MEDS: CYCLOBENZAPRINE 10 MG TAB PO PRN (17:00)
[2019-05-06] MEDS: ROSUVASTATIN 10 MG TAB (CRESTOR) PO SCH (17:00)
[2019-05-06] MEDS: rOPINIRole 2MG TAB PO SCH (20:42)
[2019-05-06] MEDS: ACETAMINOPHEN TAB 650MG DOSE (2X325MG) PO PRN (20:46)
[2019-05-06 22:00] VITALS: BP 101/66
[2019-05-07] VITALS (7 sets, daily range): BP systolic 101–114; BP diastolic 67–81
[2019-05-07] MEDS: FUROSEMIDE 40 MG/4 ML VIAL (J1940) IV SCH ×4 (03:39→20:39)
[2019-05-07] MEDS: diphenhydrAMINE CREAM 30GM TOP PRN ×2 (05:47→20:38)
[2019-05-07] MEDS: LEVOTHYROXINE 25MCG TABLET (0.025MG) PO SCH (05:47)
[2019-05-07 05:54] LABS: HEMATOCRIT 29.4 % (36.0-47.0); HEMOGLOBIN 8.3 g/dl (12.0-15.5); MEAN CORPUSCULAR HEMOGLOBIN 28.5 pg (27.0-33.0); MEAN CORPUSCULAR HGB CONC 28.2 g/dl (32.0-36.5); PLATELET COUNT, AUTOMATED 186 10^3/uL (150-450); RED BLOOD COUNT 2.91 10^6/uL (4.00-5.40); WHITE BLOOD COUNT 7.3 10^3/uL (4.0-10.0)
[2019-05-07 06:05] LABS: INR 2.9; PROTHROMBIN TIME 30.3 SECONDS (11.8-14.0)
[2019-05-07 06:29] LABS: ALBUMIN 2.3 GM/DL (3.2-5.2); BILIRUBIN,TOTAL 0.9 MG/DL (0.2-1.0); CALCIUM LEVEL 8.1 MG/DL (8.5-10.1); CREATININE FOR GFR 2.44 MG/DL (0.55-1.30); GLOMERULAR FILTRATION RATE 21.9 (>51); POTASSIUM SERUM 3.2 MEQ/L (3.5-5.1); TOTAL PROTEIN 7.1 GM/DL (6.4-8.2)
[2019-05-07] MEDS ORDERED: POTASSIUM CHLORIDE 10 MEQ SR TABLET PO ONE (08:00)
--- NOTE | 2019-05-07 08:00 | IPNPDOC ---
Subjective Date Seen The patient was seen on 05/07/19. Subjective Chief Complaint/HPI Pt is examined at bedside. She reported not as sleepy like yesterday. She reported mild dyspnea improving. It was noted that she had some pruritus in the upper abdominal region, and bendryl cream was given; she reported mild improvement after the benadryl cream. She stated she thinks it's because of linen. It is noted that pt still had urinary retention and required straight cath. Denies any fever, chills, nausea, or vomiting. Pt described she feels her abd does not feel as full as yesterday General: Denies: Chills Constitutional: Denies: Chills, Fever Pulmonary: Denies: Dyspnea Cardiovascular: Denies: Chest Pain, Palpitations Gastrointestinal: Denies: Nausea, Vomiting Genitourinary: Reports: Retention; Denies: Dysuria Neurological: Denies: Confusion Objective Physical Examination General Exam: Positive: Alert, Cooperative, No Acute Distress, Other (Obese) Eye Exam: Positive: Conjunctiva & lids normal; Negative: Sclera icteric ENT Exam: Positive: Atraumatic, Mucous membr. moist/pink Neck Exam: Positive: Supple; Negative: thyromegaly Chest Exam: Positive: Diminished Heart Exam: Positive: Tachycardic, Normal S1, Normal S2 Abdomen Exam: Positive: Normal bowel sounds, Soft, Other (mild to mod distention on left. Pt indicated no tenderness upon palpation in all 4 quadrants. N o erythema, macule, papule, opening, or drainage noted. Dry skin noted in epigastric/midline upper abd region); Negative: Hepatospenomegaly Extremity Exam: Positive: Edema (b/l, pitting, improved compared to yesterday), Normal pulses; Negative: Clubbing, Cyanosis Skin Exam: Negative: Breakdown, Lesion Neuro Exam: Positive: Normal Speech Psych Exam: Positive: Mood NL, Memory Intact, Oriented x 3; Negative: Anxiety Assessment /Plan Assessment 1. Acute on chronic diastolic chf -On IV Lasix 40mg Q6H. -may require resuming metolazone -echo done 03/2019 showed no systolic dysfunction noted. Bioprosthetic mitral valve present -2g Na restriction - daily weights amd I&O. Bladder scan and straight cath PRN -Fluid restriction 1500ml 2. CKD, stage 4 -creatinine 2.44; baseline 1.8-1.9 -Continue to monitor BMP. On 2g Na diet 3. UTI -Urine cx pos for Klebsiella. Start IV Meropenem instead of floroquinolone as pt on amiodarone -No dysuria, urgency, or frequency. Reported retention and hesitancy 3. Bacteremia - Gram pos cocci in clusters in blood cx X1 - RR and BP stable. Pt denies chest pain today. Afebrile - Echo done 03/2019 noted could not rule out a valvular vegetation in light of the technically difficult study - We will hold off on repeating echo at this time d/t absence of fever or leukocytosis. Chest pain resolved - UA indicated leukocyte esterase; urine cx pending. Pt indicated no dysuria but pos with urinary retention. 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 Abd pain likely 2/2 hematoma - repeat CT abd/pelvis showed hematoma unchanged from prior - Abd soft with mild distention on LLQ; no guarding. - Per team discussion will cont to monitor at this time as hematoma may regress spontaneously; consider d/c warfarin if symptoms worsen - Pt reported urinary retention. bladder scan TID with straight cath post void volume >250ml PRN - Purewick ordered 5. Normocytic anemia, likely 2/2 subcutaneous wall blood loss/hematoma and anemia of chronic kidney disease -Hgb 8.8, improved compared to march. Stable/improved likely d/t diuresis -Pt with multiple antibodies; it is noted that blood bank reported will need to order from [place] if she needs transfusion -erythropotein ordered 6. SIGIFREDO - Hx of noncompliance - Inpt CPAP, will use own CPAP 7. Diabetes mellitus -2g Na diet with calorie count -POC AC&HS -Cont daily and sliding scale coverage 8. A.fib -continue amio, metoprolol, and warfarin -INR now 2.27. INR was subtherapeutic at 1.6; cont to f/u as it is likely d/t missing dose also pt has subcutaneous abd hematoma -Cont to f/u with INR 9. Elevated trop -Elevated trop 0.14->0.14->0.14. May be d/t underlying CKD -Initially reported chronic chest pain/chest wall pain on right infraclavicular region non-tender to palpation which she stated at baseline. Now resolved 10. Chronic back pain, likely 2/2 body habitus -oxycodone d/c as pt appeared drowsy/excessively sleepy -Cyclobenzaprine and tylenol PRN. K-pad I saw and evaluated the patient. I agree with the findings and plan of care as documented in the above note Plan/VTE VTE Prophylaxis Ordered?: Yes VS, I&O, 24H, Fishbone Vital Signs/I&O Vital Signs Date Time Temp Pulse Resp B/P (MAP) Pulse Ox O2 Delivery O2 Flow Rate FiO2 05/07/19 06:00 97.1 105 16 104/73 (83) 97 05/06/19 14:00 2.0 I&O- Last 24 Hours up to 6 AM 05/07/19 06:00 Intake Total 1200 ml Output Total 575 ml Balance 625 ml Laboratory Data 24H LABS Laboratory Tests 2 05/06/19 11:16: Bedside Glucose (Misc Panel) 121H 05/06/19 16:32: Bedside Glucose (Misc Panel) 101 05/06/19 20:22: Bedside Glucose (Misc Panel) 133H 05/07/19 05:34: Nucleated Red Blood Cells % (auto) 0.0, Prothrombin Time 30.3H, Prothromb Time International Ratio 2.90, Anion Gap 7L, Glomerular Filtration Rate 21.9L, Blood Urea Nitrogen 24H, Creatinine 2.44H, Sodium Level 139, Potassium Level 3.2#L, Chloride Level 103, Carbon Dioxide Level 29, Calcium Level 8.1L, Aspartate Amino Transf (AST/SGOT) 48H, Alanine Aminotransferase (ALT/SGPT) 27, Alkaline Ph osphatase 176H, Total Bilirubin 0.9, Total Protein 7.1, Albumin 2.3L, Albumin/Globulin Ratio 0.48L CBC/BMP Laboratory Tests 05/07/19 05:34 Red Blood Count 2.91 L, Mean Corpuscular Volume 101.0 H, Mean Corpuscular Hemoglobin 28.5, Mean Corpuscular Hemoglobin Concent 28.2 L, Red Cell Distribution Width 21.6 H, Calcium Level 8.1 L, Aspartate Amino Transf (AST/SGOT) 48 H, Alanine Aminotransferase (ALT/SGPT) 27, Alkaline Phosphatase 176 H, Total Bilirubin 0.9, Total Protein 7.1, Albumin 2.3 L Microbiology Microbiology 05/06/19 Blood Culture, Received Pending 05/05/19 Blood Culture - Preliminary, Resulted No growth after 24 hours . All specim... 05/04/19 Blood Culture - Preliminary, Resulted 05/05/19 Urine Culture - Final, Complete Klebsiella Pneumoniae Esbl TONY BAHENA DO May 07, 2019 08:00 RADHA NEWTON MD May 09, 2019 06:59
[2019-05-07] MEDS: HumaLOG INSULIN (NovoLOG) PER UNIT SC SCH ×3 (08:05→17:22)
[2019-05-07 08:08] LABS: MAGNESIUM LEVEL 2.3 MG/DL (1.8-2.4)
[2019-05-07] MEDS: METOPROLOL SUCC (TopROL XL) 100MG *XL* TAB PO SCH ×2 (08:18→20:39)
[2019-05-07] MEDS: ALLOPURINOL 100 MG TAB PO SCH (08:51)
[2019-05-07] MEDS: MULTIVITAMINS/MINERALS THERAP 1 TAB PO SCH (08:51)
[2019-05-07] MEDS: FERROUS SULFATE 325MG TAB PO SCH (08:51)
[2019-05-07] MEDS: CitaloPRAM (CeleXA) 10 MG TABLET PO SCH (08:51)
[2019-05-07] MEDS: PREGABALIN 75 MG CAP(LYRICA) PO SCH ×2 (08:51→20:39)
[2019-05-07] MEDS: PANTOPRAZOLE 40MG TAB (PROTONIX) PO SCH (08:52)
[2019-05-07] MEDS: AMIODARONE 200 MG TAB (PACERONE) PO SCH (08:52)
[2019-05-07] MEDS: TAMSULOSIN 0.4 MG CAP PO SCH (08:52)
[2019-05-07] MEDS: ACETAMINOPHEN TAB 650MG DOSE (2X325MG) PO PRN ×2 (08:52→16:04)
[2019-05-07] MEDS: LEVEMIR (INSULIN DETEMIR) 1 UNITS/0.01ML SC SCH (08:53)
[2019-05-07] MEDS ORDERED: LevoFLOXacin 250 MG TABLET PO SCH (12:15)
[2019-05-07] MEDS: CYCLOBENZAPRINE 10 MG TAB PO PRN (12:18)
[2019-05-07] MEDS ORDERED: VANICREAM MOISTURIZING SKIN CREAM 113GM TUBE TOP PRN (13:15)
[2019-05-07] MEDS: MEROPENEM INJ 500 MG in APPROPRIATE DILUENT 1 EA IV SCH ×2 (13:54→21:19)
[2019-05-07] MEDS: WARFARIN SOD 4 MG TAB PO SCH (17:22)
[2019-05-07] MEDS: ROSUVASTATIN 10 MG TAB (CRESTOR) PO SCH (17:22)
[2019-05-07] MEDS: rOPINIRole 2MG TAB PO SCH (20:39)
[2019-05-08] MEDS: CYCLOBENZAPRINE 10 MG TAB PO PRN ×2 (00:36→21:55)
[2019-05-08] MEDS: LORazepam 1 MG TAB PO PRN ×2 (00:36→21:55)
[2019-05-08] MEDS: FUROSEMIDE 40 MG/4 ML VIAL (J1940) IV SCH ×2 (02:55→08:19)
[2019-05-08] MEDS: MEROPENEM INJ 500 MG in APPROPRIATE DILUENT 1 EA IV SCH ×3 (05:05→20:58)
[2019-05-08] MEDS: LEVOTHYROXINE 25MCG TABLET (0.025MG) PO SCH (05:37)
[2019-05-08 06:00] VITALS: BP 106/84
[2019-05-08] MEDS: HumaLOG INSULIN (NovoLOG) PER UNIT SC SCH ×3 (07:36→17:12)
[2019-05-08] MEDS ORDERED: CALCIUM CARBONATE 500 MG CHEW U/D PO ONE (08:15)
[2019-05-08] MEDS: FERROUS SULFATE 325MG TAB PO SCH (08:19)
[2019-05-08] MEDS: PREGABALIN 75 MG CAP(LYRICA) PO SCH ×2 (08:19→20:57)
[2019-05-08] MEDS: LEVEMIR (INSULIN DETEMIR) 1 UNITS/0.01ML SC SCH (08:19)
[2019-05-08] MEDS: MULTIVITAMINS/MINERALS THERAP 1 TAB PO SCH (08:19)
[2019-05-08] MEDS: ALLOPURINOL 100 MG TAB PO SCH (08:20)
[2019-05-08] MEDS: CitaloPRAM (CeleXA) 10 MG TABLET PO SCH (08:20)
[2019-05-08] MEDS: PANTOPRAZOLE 40MG TAB (PROTONIX) PO SCH (08:20)
[2019-05-08] MEDS: TAMSULOSIN 0.4 MG CAP PO SCH (08:20)
[2019-05-08] MEDS: AMIODARONE 200 MG TAB (PACERONE) PO SCH (08:20)
[2019-05-08] MEDS: METOPROLOL SUCC (TopROL XL) 100MG *XL* TAB PO SCH ×2 (08:21→20:55)
[2019-05-08 08:31] LABS: HEMATOCRIT 29.2 % (36.0-47.0); HEMOGLOBIN 8.4 g/dl (12.0-15.5); MEAN CORPUSCULAR HEMOGLOBIN 28.7 pg (27.0-33.0); MEAN CORPUSCULAR HGB CONC 28.8 g/dl (32.0-36.5); MEAN CORPUSCULAR VOLUME 99.7 fl (80.0-96.0); PLATELET COUNT, AUTOMATED 166 10^3/uL (150-450); RED BLOOD COUNT 2.93 10^6/uL (4.00-5.40); WHITE BLOOD COUNT 6.9 10^3/uL (4.0-10.0)
[2019-05-08 08:43] LABS: INR 3.16; PROTHROMBIN TIME 32.4 SECONDS (11.8-14.0)
[2019-05-08 08:52] LABS: ALBUMIN 2.1 GM/DL (3.2-5.2); BILIRUBIN,TOTAL 0.7 MG/DL (0.2-1.0); CREATININE FOR GFR 2.42 MG/DL (0.55-1.30); GLOMERULAR FILTRATION RATE 22.1 (>51); POTASSIUM SERUM 4.2 MEQ/L (3.5-5.1); TOTAL PROTEIN 6.9 GM/DL (6.4-8.2); TROPONIN I 0.1 NG/ML (< 0.10)
--- NOTE | 2019-05-08 09:39 | ECGEPIP ---
[facility] Test Date: 2019-05-08 Pat Name: ABHI BARCLAY Department: Room: [place] [address] Gender: Female Pediatric Dermatologist: LUIS CARLOS : 1965 Requested By: RADHA NEWTON Order Number: [id number] Reading MD: Reginald Grewal Measurements Intervals [place] Rate: 106 P: -10 NC: 242 QRS: -4 QRSD: 166 T: 173 QT: 415 QTc: 554 Interpretive Statements Unable to determine underlying atrial mechanism Regular wide-complex tachycardia with Left bundle branch block configuration Unable to detect evidence of pacemaker activity Last irregular with slower rate from 04/14/19. Electronically Signed on 05-08-2019 9:39:39 EDT by Reginald Grewal
[2019-05-08 09:45] VITALS: BP 106/76
[2019-05-08] MEDS: ACETAMINOPHEN TAB 650MG DOSE (2X325MG) PO PRN ×3 (09:53→18:39)
--- NOTE | 2019-05-08 13:05 | IPNPDOC ---
Date Seen The patient was seen on 05/08/19. Progress Note SUBJECTIVE: Patient complains of feeling lightheaded today she is not feeling like she did yesterday. She tells me she has some weakness but otherwise otherwise patient denies chest pain, shortness breath, nausea, vomiting, fevers, chills OBJECTIVE PHYSICAL EXAMINATION: VITAL SIGNS: Please see below. GENERAL: Pleasant super morbidly obese middle-aged female laying in bed awake alert oriented speaking in complete sentences no acute distress HEENT: Moist mucous membranes no elevation in CVP CARDIOVASCULAR: S1 S2 regular no additional heart sounds appreciated. Distant secondary to body habitus RESPIRATORY: Clear to auscultation bilaterally. Distant secondary to body habitus ABDOMINAL: Bowel sounds present but distant secondary to body habitus abdomen soft and nontender pitting edema EXTREMITIES: No clubbing cyanosis, 3+ pitting edema NEUROLOGICAL: Spontaneously moves all 4 extremities cranial 2 through 12 grossly intact no gross focal deficits appreciated PSYCHOLOGICAL: Appropriate LABORATORY DATA, MICROBIOLOGY: Please see below. IMAGING STUDIES: Chest x-ray:No acute cardiopulmonary process appreciated. CT abdomen and pelvis:1. Hematoma in the left subcutaneous abdominopelvic wall is essentially unchanged in appearance and size. 2. Extensive anasarca and subcutaneous edema throughout the abdomen and pelvis (right greater than left) unchanged. 3. No new acute abdominopelvic pathology appreciated. Chronic findings as noted above remains stable. 4. Mild bibasilar atelectasis. Echocardiogram 04/08/2019: Mild concentric left ventricle hypertrophy with septal wall motion abnormality, yet minimally impaired global resting systolic function. Prominently dilated left atrium. At least mildly dilated right ventricle with normal right ventricular wall motion and Doppler evidence of at least moderate pulmonary hypertension. Moderately dilated right atrium with IVC size upper limits of normal to slightly increased suggestive of an elevated central venous pressure. Aortic valvular sclerosis without obvious functional valvular abnormality. Normal aortic root size. Bioprosthetic mitral valve with visible cusp motion and no obvious valvular dysfunction. Normal appearing tricuspid valve with mild insufficiency. No separate intracardiac mass or pericardial effusion. ASSESSMENT AND PLAN: This is a 54-year-old female with decompensated diastolic congestive heart failure. 1. Acutely decompensated diastolic congestive heart failure: Respiratory status is at her baseline she is still grossly volume overloaded we will continue with diuresis. She does have some lightheadedness today and we may be diuresing her too quickly however she was able to tolerate this rate recently and I suspect this is actually secondary to Flomax initiation. Patient has been doing well at rehabilitation have been ambulating was discharged home and progressively gained weight to the point that she could no longer care for herself and really presented once again 2. Atrial fibrillation status post pacer with an inappropriately placed lead she will need outpatient follow-up regarding this. She is anticoagulated. We will hold her Coumadin today as she is mildly supratherapeutic, she is mildly tachycardic but on 3 rate controlling agents amiodarone and metoprolol and diltiazem. 3. ESBL Klebsiella urinary tract infection: Patient was recently admitted with Klebsiella urinary tract infection after being transferred from an outside facility where her culture was positive. She was also [facility] with [facility] and was discharged home on home antibiotics and complet ed a course for that infection. She appears to be quite susceptible to recurrent urinary tract infections. For the time being she is continued on meropenem today is day 2 4. large abdominal hematoma: Stable since her last hospitalization this was secondary to Lovenox injections. She is tolerating anticoagulation well continue to monitor hemoglobin likely take quite some time to resolve given its size. She is continued on iron supplementation 5. CAD, stable: Patient has chronically elevated troponins which have been fairly stable throughout this hospitalization she recently had a negative car diac cath she is on a beta hanane statin or aspirin is on hold in favor of anticoagulation given her recent hematoma 6. Hypertrophic cardiomyopathy status post septal myomectomy 2: Hemodynamically stable at this time 7. Obstructive sleep apnea: noncompliant with CPAP, states its broken, strict c ompliance stressed long-term prognosis is guarded 8. Dyslipidemia: Rosuvastatin 40 mg daily 9. Diabetes mellitus:Insulin sliding scale, FSBS ah & qhs 10. Hx of mechanical mitral valve replacement:s/p thrombosis and second mitral valve replacement with bioprosthetic valve 11.Chronic kidney disease: Stable monitor while undergoing diuresis 12. History of gout: Continue with allopurinol no active issue 13. Asthma:Baseline and stable 14. Hypertension:Controlled, Continue Furosemide diltiazem and metoprolol 15. Hypothyroidism:Continue synthyroid 25mcg daily 16. Restless leg syndrome: Continue Requip and Lyrica 17. Gastroesophageal reflux disease: Continue home Protonix 18. Anxiety depression: Continue Celexa and lorazepam 19. Morbid obesity: , TR prognosis is guarded I did discuss bariatric surgery the patient she is more open to this as an option if she is a candidate moving forward DVT prophylaxis: Coumadin DISPOSITION: Likely placement. VS, I&O, 24H, Fishbone Vital Signs/I&O Vital Signs Date Time Temp Pulse Resp B/P (MAP) Pulse Ox O2 Delivery O2 Flow Rate FiO2 05/08/19 10:00 2.0 05/08/19 09:45 97.0 106 18 106/76 (86) 05/08/19 06:00 97 I&O- Last 24 Hours up to 6 AM 05/08/19 06:00 Intake Total 1555 ml Output Total 2326 ml Balance -771 ml Laboratory Data 24H LABS Laboratory Tests 2 05/07/19 16:31: Bedside Glucose (Misc Panel) 135H 05/07/19 20:01: Bedside Glucose (Misc Panel) 112H 05/08/19 07:45: Bedside Glucose (Misc Panel) 112H 05/08/19 08:16: Nucleated Red Blood Cells % (auto) 0.0, Prothrombin Time 32.4H, Prothromb Time International Ratio 3.16, Anion Gap 5L, Glomerular Filtration Rate 22.1L, Blood Urea Nitrogen 22H, Creatinine 2.42H, Sodium Level 137, Potassium Level 4.2#, Chloride Level 104, Carbon Dioxide Level 28, Calcium Level 8.0L, Aspartate Amino Transf (AST/SGOT) 117H, Alanine Aminotransferase (ALT/SGPT) 31, Alkaline Phosphatase 164H, Total Bilirubin 0.7, Total Protein 6.9, Albumin 2.1L, Troponin I 0.10, Albumin/Globulin Ratio 0.44L 05/08/19 11:41: Bedside Glucose (Misc Panel) 100 CBC/BMP Laboratory Tests 05/08/19 08:16 Red Blood Count 2.93 L, Mean Corpuscular Volume 99.7 H, Mean Corpuscular Hemoglobin 28.7, Mean Corpuscular Hemoglobin Concent 28.8 L, Red Cell Distribution Width 21.6 H, Calcium Level 8.0 L, Aspartate Amino Transf (AST/SGOT) 117 H, Alanine Aminotransferase (ALT/SGPT) 31, Alkaline Phosphatase 164 H, Total Bilirubin 0.7, Total Protein 6.9, Albumin 2.1 L Microbiology Microbiology 05/06/19 Blood Culture - Preliminary, Resulted No growth after 24 hours . All specim... 05/05/19 Blood Culture - Preliminary, Resulted No Growth after 72 hours. All specime... 05/04/19 Blood Culture - Final, Complete Staphylococcus Epidermidis 05/05/19 Urine Culture - Final, Complete Klebsiella Pneumoniae Esbl RADHA NEWTON MD May 08, 2019 13:05
[2019-05-08 14:30] VITALS: BP 110/81
[2019-05-08] MEDS: ROSUVASTATIN 10 MG TAB (CRESTOR) PO SCH (17:13)
[2019-05-08] MEDS: diphenhydrAMINE CREAM 30GM TOP PRN (18:01)
[2019-05-08 20:00] VITALS: BP 108/78
[2019-05-08] MEDS: rOPINIRole 2MG TAB PO SCH (20:57)
[2019-05-08] MEDS ORDERED: traMADol 50 MG TAB PO ONE (22:30)
[2019-05-09] MEDS: LEVOTHYROXINE 25MCG TABLET (0.025MG) PO SCH (05:46)
[2019-05-09] MEDS: MEROPENEM INJ 500 MG in APPROPRIATE DILUENT 1 EA IV SCH (05:46)
[2019-05-09 06:00] VITALS: BP 109/78
[2019-05-09 06:16] LABS: HEMATOCRIT 31.6 % (36.0-47.0); HEMOGLOBIN 8.9 g/dl (12.0-15.5); MEAN CORPUSCULAR HEMOGLOBIN 28.1 pg (27.0-33.0); MEAN CORPUSCULAR HGB CONC 28.2 g/dl (32.0-36.5); MEAN CORPUSCULAR VOLUME 99.7 fl (80.0-96.0); PLATELET COUNT, AUTOMATED 161 10^3/uL (150-450); RED BLOOD COUNT 3.17 10^6/uL (4.00-5.40)
[2019-05-09 06:24] LABS: INR 2.93; PROTHROMBIN TIME 30.5 SECONDS (11.8-14.0)
[2019-05-09 06:40] LABS: ALBUMIN 2.2 GM/DL (3.2-5.2); BILIRUBIN,TOTAL 0.9 MG/DL (0.2-1.0); CALCIUM LEVEL 8.3 MG/DL (8.5-10.1); CREATININE FOR GFR 2.16 MG/DL (0.55-1.30); GLOMERULAR FILTRATION RATE 25.2 (>51); POTASSIUM SERUM 3.3 MEQ/L (3.5-5.1)
[2019-05-09] MEDS: HumaLOG INSULIN (NovoLOG) PER UNIT SC SCH ×3 (07:30→16:59)
[2019-05-09] MEDS: LEVEMIR (INSULIN DETEMIR) 1 UNITS/0.01ML SC SCH (08:46)
[2019-05-09] MEDS: PREGABALIN 75 MG CAP(LYRICA) PO SCH ×2 (08:46→22:00)
[2019-05-09] MEDS: ALLOPURINOL 100 MG TAB PO SCH (08:47)
[2019-05-09] MEDS: AMIODARONE 200 MG TAB (PACERONE) PO SCH (08:47)
[2019-05-09] MEDS: CitaloPRAM (CeleXA) 10 MG TABLET PO SCH (08:47)
[2019-05-09] MEDS: METOPROLOL SUCC (TopROL XL) 100MG *XL* TAB PO SCH ×2 (08:47→22:01)
[2019-05-09] MEDS: MULTIVITAMINS/MINERALS THERAP 1 TAB PO SCH (08:47)
[2019-05-09] MEDS: PANTOPRAZOLE 40MG TAB (PROTONIX) PO SCH (08:47)
[2019-05-09] MEDS: FERROUS SULFATE 325MG TAB PO SCH (08:48)
[2019-05-09] MEDS: TAMSULOSIN 0.4 MG CAP PO SCH (10:21)
[2019-05-09] MEDS: FUROSEMIDE 40 MG/4 ML VIAL (J1940) IV SCH ×3 (10:22→22:00)
[2019-05-09 10:40] LABS: TROPONIN I 0.12 NG/ML (< 0.10)
[2019-05-09] MEDS ORDERED: POTASSIUM CHLORIDE 10% LIQ 20 MEQ/15 ML UDC PO ONE (11:00)
[2019-05-09] MEDS: BACTRIM 160MG/800MG DS TAB PO SCH ×2 (11:21→22:02)
[2019-05-09] MEDS: MAGNESIUM CHLORIDE 64 MG TABCR (SLO MAG) PO SCH (11:21)
[2019-05-09] MEDS: ACETAMINOPHEN TAB 650MG DOSE (2X325MG) PO PRN ×2 (11:22→22:10)
--- NOTE | 2019-05-09 11:32 | IPNPDOC ---
Date Seen The patient was seen on 05/09/19. Progress Note SUBJECTIVE: No acute events overnight. Patient has no complaints at this time and is just wondering what the outpatient plan for her is. Discussed that which she would likely need continued physical therapy. No fever, chills, chest pain, shortness of breath, or urinary symptoms. OBJECTIVE PHYSICAL EXAMINATION: VITAL SIGNS: Please see below. GENERAL: Pleasant, super morbidly obese middle-aged female laying in her chair in no acute distress. HEENT: Normocephalic, atraumatic. Moist mucous membranes. EOMI. No JVP. CARDIOVASCULAR: Distant heart sounds. Tachycardia rate, Normal S1 S2, no murmurs appreciated. RESPIRATORY: Clear to auscultation bilaterally. Distant secondary to body habitus ABDOMINAL: Obese abdomen, pitting edema present. Soft nontender. EXTREMITIES: 3+ pitting edema in bilateral lower extremities. NEUROLOGICAL: No focal deficits appreciated PSYCHOLOGICAL: Appropriate LABORATORY DATA, MICROBIOLOGY: Please see below. IMAGING STUDIES: Chest x-ray:No acute cardiopulmonary process appreciated. ASSESSMENT AND PLAN: This is a 54-year-old female with decompensated diastolic congestive heart failure. 1. Acutely decompensated diastolic congestive heart failure -Diuresis held yesterday as it may have been too aggressive. We will restart this today to optimize her volume and replace her electrolytes appropriately. 2. Atrial fibrillation status post pacer with an inappropriately placed lead she will need outpatient follow-up regarding this. She is anticoagulated. We will hold her Coumadin today as she is mildly supratherapeutic, she is mildly tachycardic but on 3 rate controlling agents amiodarone, metoprolol, and diltiazem. 3. ESBL Klebsiella urinary tract infection: Patient was recently admitted with Klebsiella urinary tract infection after being transferred from an outside facility where her culture was positive. She was also recently admitted in a state hospital with VRE and was discharged home on home antibiotics and completed a course for that infection. She appears to be quite susceptible to recurrent urinary tract infections. She has been on IV antibiotics (Meropenem) since Thursday, we will transition her to PO antibiotics today with a stop date of 05/20/19. 4. large abdominal hematoma: Stable since her last hospitalization this was secondary to Lovenox injections. She is tolerating anticoagulation well, we will continue to monitor hemoglobin likely take quite some time to resolve given its size. She is continued on iron supplementation. 5. CAD, stable: Patient has chronically elevated troponins which have been fairly stable throughout this hospitalization she recently had a negative cardiac cath she is on a beta hanane statin and aspirin is on hold in favor of anticoagulation given her recent hematoma. We will recheck a troponin today to ensure it is trending down or at least stable, rechecked troponin is 0.12, u nchanged from day prior. 6. Hypertrophic cardiomyopathy status post septal myomectomy 2: Hemodynamically stable at this time 7. Obstructive sleep apnea: noncompliant with CPAP, states its broken, strict compliance stressed long-term prognosis is guarded 8. Dyslipidemia: Rosuvastatin 40 mg daily 9. Diabetes mellitus:Insulin sliding scale, FSBS ah & qhs 10. Hx of mechanical mitral valve replacement:s/p thrombosis and second mitral valve replacement with bioprosthetic valve 11.Chronic kidney disease: Stable monitor while undergoing diuresis 12. History of gout: Continue with allopurinol no active issue 13. Asthma:Baseline and stable 14. Hypertension:Controlled, Continue Furosemide diltiazem and metoprolol 15. Hypothyroidism:Continue synthyroid 25mcg daily 16. Restless leg syndrome: Continue Requip and Lyrica 17. GERD: Continue home Protonix 18. Anxiety depression: Continue Celexa and lorazepam 19. Morbid obesity: Dr. Newton discussed bariatric surgery with patient, this s hould continue to be discussed as it complicates care. DVT prophylaxis: Coumadin DISPOSITION: Pending volume optimization. I saw and evaluated the patient. I agree with the findings and plan of care as documented in the above note VS, I&O, 24H, Fishbone Vital Signs/I&O Vital Signs Date Time Temp Pulse Resp B/P (MAP) Pulse Ox O2 Delivery O2 Flow Rate FiO2 05/09/19 08:47 117 112/77 05/09/19 06:00 97.6 21 98 05/08/19 14:00 2.0 I&O- Last 24 Hours up to 6 AM 05/09/19 06:00 Intake Total 1660 ml Output Total 1400 ml Balance 260 ml Laboratory Data 24H LABS Laboratory Tests 2 05/08/19 11:41: Bedside Glucose (Misc Panel) 100 05/08/19 14:06: Troponin I 0.11H 05/08/19 16:56: Bedside Glucose (Misc Panel) 107H 05/08/19 19:47: Troponin I 0.12H 05/08/19 20:48: Bedside Glucose (Misc Panel) 103 05/09/19 05:52: Nucleated Red Blood Cells % (auto) 0.0, Prothrombin Time 30.5H, Prothromb Time International Ratio 2.93, Anion Gap 6L, Glomerular Filtration Rate 25.2L, Blood Urea Nitrogen 24H, Creatinine 2.16H, Sodium Level 142, Potassium Level 3.3#L, Chloride Level 105, Carbon Dioxide Level 31, Calcium Level 8.3L, Aspartate Amino Transf (AST/SGOT) 41H, Alanine Aminotransferase (ALT/SGPT) 23, Alkaline Phosphatase 167H, Total Bilirubin 0.9, Total Protein 7.0, Albumin 2.2L, Troponin I 0.12H, Albumin/Globulin Ratio 0.46L CBC/BMP Laboratory Tests 05/09/19 05:52 Red Blood Count 3.17 L, Mean Corpuscular Volume 99.7 H, Mean Corpuscular Hemoglobin 28.1, Mean Corpuscular Hemoglobin Concent 28.2 L, Red Cell Distributi on Width 21.2 H, Calcium Level 8.3 L, Aspartate Amino Transf (AST/SGOT) 41 H, Alanine Aminotransferase (ALT/SGPT) 23, Alkaline Phosphatase 167 H, Total Bilirubin 0.9, Total Protein 7.0, Albumin 2.2 L Microbiology Microbiology 05/06/19 Blood Culture - Preliminary, Resulted No Growth after 48 hours. All Specime... 05/05/19 Blood Culture - Preliminary, Resulted No Growth after 72 hours. All specime... 05/04/19 Blood Culture - Final, Complete Staphylococcus Epidermidis 05/05/19 Urine Culture - Final, Complete Klebsiella Pneumoniae Esbl GME ATTESTATION GME ATTESTATION My faculty preceptor for this patient encounter was physically present during the encounter and was fully available. All aspects of the patient interview, examination, medical decision making process, and medical care plan development were reviewed and approved by the faculty preceptor. The faculty preceptor is aware and concurs with the plan as stated in the body of this note and will attest to such by his/her cosignature. OMKAR FITCH DO May 09, 2019 11:32 RADHA NEWTON MD May 17, 2019 12:10
[2019-05-09 14:00] VITALS: BP 119/80
[2019-05-09 15:18] LABS: MAGNESIUM LEVEL 2.3 MG/DL (1.8-2.4)
[2019-05-09] MEDS: ROSUVASTATIN 10 MG TAB (CRESTOR) PO SCH (16:59)
[2019-05-09] MEDS: WARFARIN SOD 4 MG TAB PO SCH (17:37)
[2019-05-09] MEDS: POTASSIUM CHLORIDE 10% LIQ 20 MEQ/15 ML UDC PO SCH (21:58)
[2019-05-09 22:00] VITALS: BP 124/69
[2019-05-09] MEDS: NYSTATIN 100,000 UNITS/GM TOPICAL PWD 15 GM TOP PRN (22:00)
[2019-05-09] MEDS: rOPINIRole 2MG TAB PO SCH (22:10)
[2019-05-10] MEDS: FUROSEMIDE 40 MG/4 ML VIAL (J1940) IV SCH ×3 (02:26→17:33)
[2019-05-10] MEDS: ACETAMINOPHEN TAB 650MG DOSE (2X325MG) PO PRN ×2 (02:28→22:09)
[2019-05-10] MEDS: LORazepam 1 MG TAB PO PRN (02:28)
[2019-05-10] MEDS: LEVOTHYROXINE 25MCG TABLET (0.025MG) PO SCH (05:40)
[2019-05-10 06:00] VITALS: BP 126/73
[2019-05-10 06:30] LABS: HEMATOCRIT 30.9 % (36.0-47.0); HEMOGLOBIN 8.9 g/dl (12.0-15.5); MEAN CORPUSCULAR HEMOGLOBIN 28.4 pg (27.0-33.0); MEAN CORPUSCULAR HGB CONC 28.8 g/dl (32.0-36.5); MEAN CORPUSCULAR VOLUME 98.7 fl (80.0-96.0); PLATELET COUNT, AUTOMATED 156 10^3/uL (150-450); RED BLOOD COUNT 3.13 10^6/uL (4.00-5.40); WHITE BLOOD COUNT 8.3 10^3/uL (4.0-10.0)
[2019-05-10 06:41] LABS: INR 2.9; PROTHROMBIN TIME 30.2 SECONDS (11.8-14.0)
[2019-05-10 06:52] LABS: ALBUMIN 2.4 GM/DL (3.2-5.2); BILIRUBIN,TOTAL 0.8 MG/DL (0.2-1.0); CALCIUM LEVEL 8.4 MG/DL (8.5-10.1); CREATININE FOR GFR 2.16 MG/DL (0.55-1.30); GLOMERULAR FILTRATION RATE 25.2 (>51); POTASSIUM SERUM 3.6 MEQ/L (3.5-5.1); TOTAL PROTEIN 7.4 GM/DL (6.4-8.2)
[2019-05-10] MEDS: HumaLOG INSULIN (NovoLOG) PER UNIT SC SCH ×3 (07:30→17:24)
[2019-05-10] MEDS: PREGABALIN 75 MG CAP(LYRICA) PO SCH ×2 (09:43→22:08)
[2019-05-10] MEDS: ALLOPURINOL 100 MG TAB PO SCH (09:43)
[2019-05-10] MEDS: POTASSIUM CHLORIDE 10% LIQ 20 MEQ/15 ML UDC PO SCH ×2 (09:43→22:07)
[2019-05-10] MEDS: METOPROLOL SUCC (TopROL XL) 100MG *XL* TAB PO SCH ×2 (09:43→22:08)
[2019-05-10] MEDS: PANTOPRAZOLE 40MG TAB (PROTONIX) PO SCH (09:43)
[2019-05-10] MEDS: LEVEMIR (INSULIN DETEMIR) 1 UNITS/0.01ML SC SCH (09:43)
[2019-05-10] MEDS: BACTRIM 160MG/800MG DS TAB PO SCH ×2 (09:43→22:08)
[2019-05-10] MEDS: MAGNESIUM CHLORIDE 64 MG TABCR (SLO MAG) PO SCH (09:43)
[2019-05-10] MEDS: FERROUS SULFATE 325MG TAB PO SCH (09:43)
[2019-05-10] MEDS: MULTIVITAMINS/MINERALS THERAP 1 TAB PO SCH (09:43)
[2019-05-10] MEDS: CitaloPRAM (CeleXA) 10 MG TABLET PO SCH (09:43)
[2019-05-10] MEDS: AMIODARONE 200 MG TAB (PACERONE) PO SCH (09:43)
--- NOTE | 2019-05-10 10:27 | IPNPDOC ---
Text Note Date of Service The patient was seen on 05/10/19. NOTE SUBJECTIVE: Patient seen at bedside. She reports she has not been sleeping well at night she continues to have vivid dreams. Nursing staff reports that she is having hallucinations. She did admit to these yesterday when I spoke with her in the late morning, but these are described as her seeing things (animals) right as she is coming out of her sleep. This is never happened before and has only happened here in the hospital. OBJECTIVE: PHYSICAL EXAM: Vitals: (see below) GENERAL: Pleasant, super morbidly obese middle-aged female laying in her chair in no acute distress. HEENT: Normocephalic, atraumatic. Moist mucous membranes. EOMI. No JVP. CARDIOVASCULAR: Distant heart sounds. Tachycardia rate, Normal S1 S2, no murmurs appreciated. RESPIRATORY: Clear to auscultation bilaterally. Distant secondary to body habitus ABDOMINAL: Obese abdomen, pitting edema present. Soft nontender. EXTREMITIES: 3+ pitting edema in bilateral lower extremities. NEUROLOGICAL: No focal deficits appreciated PSYCHOLOGICAL: Appropriate LABORATORY DATA, MICROBIOLOGY: Please see below. IMAGING STUDIES: ASSESSMENT AND PLAN: 1. Acutely decompensated diastolic congestive heart failure -Patient put out 1300 mL since restarting diuresis yesterday. We will continue to adjust diuresis to optimize her volume status. Increased her IV diuretics to 60 mg every 8 hours. Should she have adequate output with this, we can transition her to oral diuretics. 2. Atrial fibrillation status post pacer with an inappropriately placed lead she will need outpatient follow-up regarding this. She is anticoagulated. We will hold her Coumadin today as she is mildly supra-therapeutic, she is mildly tachycardic but on 3 rate controlling agents amiodarone, metoprolol, and diltiazem. 3. ESBL Klebsiella urinary tract infection: Patient was recently admitted with Klebsiella urinary tract infection after being transferred from an outside facility where her culture was positive. She was also recently [facility] in a state [facility] with [facility]RE and was discharged home on home antibiotics and c ompleted a course for that infection. She appears to be quite susceptible to recurrent urinary tract infections. She had been on IV antibiotics (Meropenem) since Thursday, but was transitioned yesterday to Bactrim by mouth with a stop date of 05/20/19. 4. large abdominal hematoma: Stable since her last hospitalization this was secondary to Lovenox injections. She is tolerating anticoagulation well, we will continue to monitor hemoglobin likely take quite some time to resolve given its size. Continue iron supplementation. 5. CAD, stable: Patient has chronically elevated troponins which have been fairly stable throughout this hospitalization she recently had a negative cardiac cath she is on a beta hanane statin and aspirin is on hold in favor of anticoagulation given her recent hematoma. We will recheck a troponin today to ensure it is trending down or at least stable, rechecked troponin is 0.12, unchanged from day prior. 6. Hypertrophic cardiomyopathy status post septal myomectomy 2: Hemodynamically stable at this time 7. Obstructive sleep apnea: noncompliant with CPAP, states its broken, strict compliance stressed long-term prognosis is guarded. We will attempt to see what her prescription is for her CPAP machine to see if we can get that set up or ordered for her while she is inpatient to that she has it when she is discharge. 8. Dyslipidemia: Rosuvastatin 40 mg daily 9. Diabetes mellitus:Insulin sliding scale, FSBS ah & qhs 10. Hx of mechanical mitral valve replacement:s/p thrombosis and second mitral valve replacement with bioprosthetic valve 11.Chronic kidney disease: Stable monitor while undergoing diuresis 12. History of gout: Continue with allopurinol no active issue 13. Asthma:Baseline and stable 14. Hypertension:Controlled, Continue Furosemide diltiazem and metoprolol 15. Hypothyroidism:Continue Synthroid 25mcg daily 16. Restless leg syndrome: Continue Requip and Lyrica 17. GERD: Continue home Protonix 18. Anxiety depression: Continue Celexa and lorazepam 19. Morbid obesity: Dr. Romero discussed bariatric surgery with patient, this s hould continue to be discussed as it complicates care. DVT prophylaxis: Coumadin DISPOSITION: Pending IV diuretic optimization VS,Fishbone, I+O VS, Fishbone, I+O Laboratory Tests 05/10/19 06:10 Red Blood Count 3.13 L, Mean Corpuscular Volume 98.7 H, Mean Corpuscular Hemoglobin 28.4, Mean Corpuscular Hemoglobin Concent 28.8 L, Red Cell Distribution Width 21.6 H, Calcium Level 8.4 L, Aspartate Amino Transf (AST/SGOT) 42 H, Alanine Aminotransferase (ALT/SGPT) 26, Alkaline Phosphatase 169 H, Total Bilirubin 0.8, Total Protein 7.4, Albumin 2.4 L Vital Signs Date Time Temp Pulse Resp B/P (MAP) Pulse Ox O2 Delivery O2 Flow Rate FiO2 05/10/19 06:00 98.6 107 20 126/73 (90) 99 05/08/19 14:00 2.0 I&O- Last 24 Hours up to 6 AM 05/10/19 05:59 Intake Total 1470 ml Output Total 1400 ml Balance 70 ml GME ATTESTATION GME ATTESTATION My faculty preceptor for this patient encounter was physically present during the encounter and was fully available. All aspects of the patient interview, examination, medical decision making process, and medical care plan development were reviewed and approved by the faculty preceptor. The faculty preceptor is aware and concurs with the plan as stated in the body of this note and will attest to such by his/her cosignature. ATTENDING NOTE I, Syliva Mooney, have independently examined this patient and performed my own physical exam, as well as reviewed the documentation and edited where necessary. I have discussed in detail with the resident / student the findings and plan of treatment as documented by the resident / student and edited their note. I agree with their findings and treatment plan and have edited their documentation. I will continue to follow the patient during this hospital stay. OMKAR FITCH DO May 10, 2019 10:27 SYLVIA MOONEY MD May 10, 2019 15:47
[2019-05-10 14:00] VITALS: BP 128/82
[2019-05-10] MEDS: WARFARIN SOD 4 MG TAB PO SCH (16:45)
[2019-05-10] MEDS: ROSUVASTATIN 10 MG TAB (CRESTOR) PO SCH (17:33)
[2019-05-10 22:00] VITALS: BP 121/82
[2019-05-10] MEDS: rOPINIRole 2MG TAB PO SCH (22:08)
[2019-05-11] MEDS: LORazepam 1 MG TAB PO PRN (01:16)
[2019-05-11] MEDS: FUROSEMIDE 40 MG/4 ML VIAL (J1940) IV SCH ×3 (01:16→10:09)
[2019-05-11 05:58] LABS: HEMATOCRIT 32.4 % (36.0-47.0); HEMOGLOBIN 9.2 g/dl (12.0-15.5); MEAN CORPUSCULAR HEMOGLOBIN 28.1 pg (27.0-33.0); MEAN CORPUSCULAR HGB CONC 28.4 g/dl (32.0-36.5); MEAN CORPUSCULAR VOLUME 99.1 fl (80.0-96.0); PLATELET COUNT, AUTOMATED 194 10^3/uL (150-450); RED BLOOD COUNT 3.27 10^6/uL (4.00-5.40); WHITE BLOOD COUNT 8.8 10^3/uL (4.0-10.0)
[2019-05-11] MEDS: LEVOTHYROXINE 25MCG TABLET (0.025MG) PO SCH (05:59)
[2019-05-11 06:00] VITALS: BP 109/62
[2019-05-11 06:10] LABS: INR 3.75; PROTHROMBIN TIME 37.1 SECONDS (11.8-14.0)
[2019-05-11 06:25] LABS: ALBUMIN 2.5 GM/DL (3.2-5.2); CALCIUM LEVEL 8.7 MG/DL (8.5-10.1); CREATININE FOR GFR 2.31 MG/DL (0.55-1.30); GLOMERULAR FILTRATION RATE 23.3 (>51); POTASSIUM SERUM 3.6 MEQ/L (3.5-5.1); TOTAL PROTEIN 7.6 GM/DL (6.4-8.2)
[2019-05-11] MEDS: HumaLOG INSULIN (NovoLOG) PER UNIT SC SCH ×3 (07:30→17:30)
[2019-05-11 08:40] VITALS: BP 106/68
[2019-05-11] MEDS: LEVEMIR (INSULIN DETEMIR) 1 UNITS/0.01ML SC SCH (09:00)
[2019-05-11] MEDS: METOPROLOL SUCC (TopROL XL) 100MG *XL* TAB PO SCH ×2 (09:00→21:00)
[2019-05-11 09:15] LABS: ABG HCO3 28.8 MEQ/L (22.0-26.0); ABG O2 SATURATION 95.6 % (95.0-99.0); ABG PARTIAL PRESSURE CO2 39.8 mmHg (35.0-45.0); ABG PARTIAL PRESSURE O2 80.9 mmHg (75.0-100.0); ABG STANDARD HCO3 28.9 MEQ/L (22.0-26.0); ABG TOTAL CO2 30.1 MEQ/L (22.0-29.0); ABG pH (ARTERIAL) 7.478 UNITS (7.350-7.450)
[2019-05-11] MEDS: POTASSIUM CHLORIDE 10% LIQ 20 MEQ/15 ML UDC PO SCH ×2 (10:09→22:10)
[2019-05-11] MEDS: MAGNESIUM CHLORIDE 64 MG TABCR (SLO MAG) PO SCH (10:09)
[2019-05-11] MEDS: PANTOPRAZOLE 40MG TAB (PROTONIX) PO SCH (10:10)
[2019-05-11] MEDS: CitaloPRAM (CeleXA) 10 MG TABLET PO SCH (10:10)
[2019-05-11] MEDS: MULTIVITAMINS/MINERALS THERAP 1 TAB PO SCH (10:10)
[2019-05-11] MEDS: AMIODARONE 200 MG TAB (PACERONE) PO SCH (10:10)
[2019-05-11] MEDS: ALLOPURINOL 100 MG TAB PO SCH (10:10)
[2019-05-11] MEDS: BACTRIM 160MG/800MG DS TAB PO SCH (10:11)
[2019-05-11] MEDS: FERROUS SULFATE 325MG TAB PO SCH (10:11)
[2019-05-11] MEDS: PREGABALIN 75 MG CAP(LYRICA) PO SCH ×2 (10:11→22:12)
--- NOTE | 2019-05-11 12:25 | IPNPDOC ---
Text Note Date of Service The patient was seen on 05/11/19. NOTE SUBJECTIVE: Patient states she continues to have poor sleep despite the fact that she is sleeping every time I walk in the room. When questioned about why his sleep is poor, she states that it is because of her vivid dreams. She feels like she continues to experience the dreams while she is waking up. She also feels somewhat despondent about how long she has been in the hospital and is frustrated by her perceived lack of progress. Denies any new symptoms including fevers, chills, chest pain, difficulty breathing. She continues to work with physical therapy. OBJECTIVE: PHYSICAL EXAM: Vitals: (see below) GENERAL: Pleasant, super morbidly obese middle-aged female laying in her chair in no acute distress. HEENT: Normocephalic, atraumatic. Moist mucous membranes. EOMI. No JVP. CARDIOVASCULAR: Distant heart sounds. Tachycardia rate, Normal S1 S2, no murmurs appreciated. RESPIRATORY: Clear to auscultation bilaterally. Distant secondary to body habitus ABDOMINAL: Obese abdomen, pitting edema present. Soft nontender. EXTREMITIES: 3+ pitting edema in bilateral lower extremities. NEUROLOGICAL: No focal deficits appreciated PSYCHOLOGICAL: Appropriate LABORATORY DATA, MICROBIOLOGY: Please see below. ASSESSMENT AND PLAN: #. Acutely decompensated diastolic congestive heart failure -Patient put out 950 mL since increasing her lasix dose with an increase in her creatinine. ABG drawn today demonstrates metabolic alkalosis. We will hold her diuretics today. #. Hallucinations- Patient was found screaming in her room because she believed their was a man who was trying to stab her. Psychiatry and Dr. Polanco was consulted. He is recommending 1 mg of haloperidol every 6 hours, discontinuation of her ativan, and a 1:1 sitter. Psych recommendations very much appreciated. #. ESBL Klebsiella urinary tract infection: She had been on IV antibiotics (Meropenem) since 05/07, but was transitioned to Bactrim by mouth with a stop date of 05/20/19. As her hallucinations began Thursday their may be a causal relationship between her bactrim and the vivid dreams/hallucinations. Because of this we will have a PICC line placed so she can continue receiving Meropenem IV as she has allergies or is resistant to other antibiotics and their are no other viable PO medications. #. Atrial fibrillation status post pacer with an inappropriately placed lead she will need outpatient follow-up regarding this. She is anticoagulated. We will hold her Coumadin today as she is mildly supra-therapeutic, she is mildly tachycardic but on 3 rate controlling agents amiodarone, metoprolol, and diltiazem. #. large abdominal hematoma: Stable since her last hospitalization this was secondary to Lovenox injections. She is tolerating anticoagulation well, we will continue to monitor hemoglobin likely take quite some time to resolve given its size. Continue iron supplementation. #. CAD, stable: Patient has chronically elevated troponins which have been fairly stable throughout this hospitalization she recently had a negative cardiac cath she is on a beta hanane statin and aspirin is on hold in favor of anticoagulation given her recent hematoma. We will recheck a troponin today to ensure it is trending down or at least stable, rechecked troponin is 0.12, unchanged from day prior. #. Hypertrophic cardiomyopathy status post septal myomectomy 2: Hemodynamically stable at this time #. Obstructive sleep apnea: noncompliant with CPAP, states its broken, strict compliance stressed long-term prognosis is guarded. We will attempt to see what her prescription is for her CPAP machine to see if we can get that set up or ordered for her while she is inpatient to that she has it when she is discharge. #. Dyslipidemia: Rosuvastatin 40 mg daily #. Diabetes mellitus:Insulin sliding scale, FSBS ah & qhs #. Hx of mechanical mitral valve replacement:s/p thrombosis and second mitral valve replacement with bioprosthetic valve #.Chronic kidney disease: Stable monitor while undergoing diuresis #. History of gout: Continue with allopurinol no active issue #. Asthma:Baseline and stable #. Hypertension:Controlled, Continue Furosemide diltiazem and metoprolol #. Hypothyroidism:Continue Synthroid 25mcg daily #. Restless leg syndrome: Continue Requip and Lyrica #. GERD: Continue home Protonix #. Anxiety depression: Continue Celexa and lorazepam #. Morbid obesity: Discussed bariatric surgery with patient, this should continue to be discussed as it complicates care. DVT prophylaxis: Coumadin DISPOSITION: Pending clinical improvement VS,Fishbone, I+O VS, Fishbone, I+O Laboratory Tests 05/11/19 05:33 Red Blood Count 3.27 L, Mean Corpuscular Volume 99.1 H, Mean Corpuscular Hemoglobin 28.1, Mean Corpuscular Hemoglobin Concent 28.4 L, Red Cell Distribution Width 21.8 H, Calcium Level 8.7, Aspartate Amino Transf (AST/SGOT) 48 H, Alanine Aminotransferase (ALT/SGPT) 27, Alkaline Phosphatase 171 H, Total Bilirubin 1.0, Total Protein 7.6, Albumin 2.5 L Vital Signs Date Time Temp Pulse Resp B/P (MAP) Pulse Ox O2 Delivery O2 Flow Rate FiO2 05/11/19 08:40 98.7 78 16 106/68 (81) 94.0 05/11/19 06:00 99 I&O- Last 24 Hours up to 6 AM 05/11/19 06:00 Intake Total 1530 ml Output Total 900 ml Balance 630 ml GME ATTESTATION GME ATTESTATION My faculty preceptor for this patient encounter was physically present during the encounter and was fully available. All aspects of the patient interview, examination, medical decision making process, and medical care plan development were reviewed and approved by the faculty preceptor. The faculty preceptor is aware and concurs with the plan as stated in the body of this note and will attest to such by his/her cosignature. ATTENDING NOTE I, Sylvia Mooney, have independently examined this patient and performed my own physical exam, as well as reviewed the documentation and edited where necessary. I have discussed in detail with the resident / student the findings and plan of treatment as documented by the resident / student and edited their note. I agree with their findings and treatment plan and have edited their documentation. I will continue to follow the patient during this hospital stay. OMKAR FITCH DO May 11, 2019 12:25 SYLVIA MOONEY MD May 11, 2019 21:44
[2019-05-11 14:00] VITALS: BP 122/84
[2019-05-11] MEDS ORDERED: LIDOCAINE 1% MDV 20ML VIAL As Ordered ONE (16:06)
[2019-05-11] MEDS ORDERED: HALOPERIDOL 0.5 MG TAB PO PRN ×2 (17:45→21:45)
[2019-05-11] MEDS: ROSUVASTATIN 10 MG TAB (CRESTOR) PO SCH (18:29)
[2019-05-11] MEDS: MEROPENEM INJ 1 GM in APPROPRIATE DILUENT 1 EA IV SCH (18:30)
[2019-05-11 22:00] VITALS: BP 105/75
[2019-05-11] MEDS: rOPINIRole 2MG TAB PO SCH (22:13)
[2019-05-12] MEDS: MEROPENEM INJ 1 GM in APPROPRIATE DILUENT 1 EA IV SCH ×3 (03:01→18:07)
[2019-05-12] MEDS: LEVOTHYROXINE 25MCG TABLET (0.025MG) PO SCH (05:49)
[2019-05-12] MEDS: SODIUM CHLORIDE 0.9% INJ 10 ML SYR IV SCH ×2 (05:50→18:07)
[2019-05-12 06:00] VITALS: BP 143/81
[2019-05-12 06:27] LABS: HEMATOCRIT 31.2 % (36.0-47.0); MEAN CORPUSCULAR HEMOGLOBIN 27.8 pg (27.0-33.0); MEAN CORPUSCULAR HGB CONC 28.8 g/dl (32.0-36.5); MEAN CORPUSCULAR VOLUME 96.3 fl (80.0-96.0); PLATELET COUNT, AUTOMATED 190 10^3/uL (150-450); RED BLOOD COUNT 3.24 10^6/uL (4.00-5.40); WHITE BLOOD COUNT 9.3 10^3/uL (4.0-10.0)
[2019-05-12 06:44] LABS: INR 4.13; PROTHROMBIN TIME 40.1 SECONDS (11.8-14.0)
[2019-05-12 06:53] LABS: ALBUMIN 2.5 GM/DL (3.2-5.2); CALCIUM LEVEL 8.8 MG/DL (8.5-10.1); CREATININE FOR GFR 2.36 MG/DL (0.55-1.30); GLOMERULAR FILTRATION RATE 22.7 (>51); TOTAL PROTEIN 7.5 GM/DL (6.4-8.2)
[2019-05-12] MEDS: HumaLOG INSULIN (NovoLOG) PER UNIT SC SCH ×3 (07:30→18:07)
[2019-05-12] MEDS: POTASSIUM CHLORIDE 10% LIQ 20 MEQ/15 ML UDC PO SCH ×2 (09:33→22:00)
[2019-05-12] MEDS: PREGABALIN 75 MG CAP(LYRICA) PO SCH ×2 (09:34→21:59)
[2019-05-12] MEDS: ALLOPURINOL 100 MG TAB PO SCH (09:34)
[2019-05-12] MEDS: METOPROLOL SUCC (TopROL XL) 100MG *XL* TAB PO SCH ×2 (09:34→22:01)
[2019-05-12] MEDS: PANTOPRAZOLE 40MG TAB (PROTONIX) PO SCH (09:34)
[2019-05-12] MEDS: FERROUS SULFATE 325MG TAB PO SCH (09:34)
[2019-05-12] MEDS: AMIODARONE 200 MG TAB (PACERONE) PO SCH (09:34)
[2019-05-12] MEDS: CitaloPRAM (CeleXA) 10 MG TABLET PO SCH (09:34)
[2019-05-12] MEDS: MULTIVITAMINS/MINERALS THERAP 1 TAB PO SCH (09:34)
[2019-05-12] MEDS: MAGNESIUM CHLORIDE 64 MG TABCR (SLO MAG) PO SCH (09:35)
--- NOTE | 2019-05-12 10:11 | MHCR ---
DATE OF CONSULTATION: 05/11/2019 IDENTIFYING DATA: She is a 54-year-old female with history of multiple medical issues who was admitted for treatment of congestive heart failure (CHF) and urinary tract infection. Consult was called to evaluate the patient as she had some perceptual disturbances. Sources of information were nursing staff, treating MD and the patient. HISTORY OF PRESENT ILLNESS: The patient was evaluated. She had fluctuation in her consciousness. She could speak to me one minute and go into drowsiness the next minute. The patient was lifting her hand and trying to catch something which was probably her visual hallucinations. When asked about it, she reports she has been dreaming. She was speaking in a mumbled voice. The patient was doing well before, however, the recent change is in the last couple of days. She had one psychiatric hospitalization in the past and she is currently on citalopram for depression. The patient has multiple medications for her multiple psychiatric hospitalizations. She denies any suicide attempt in the past. MENTAL STATUS EXAMINATION: Her consciousness is fluctuating. She was oriented to place and person, but not to time. She is laying in bed. She is cooperative. Speaks slowly, softly, with mumbled speech. She is not combative. She was redirectable. She has visual hallucinations. Denied any auditory hallucinations. Insight and judgment are limited. DIAGNOSIS: Delirium due to multiple medical conditions. Depressive disorder not otherwise specified. PLAN: To discontinue her Ativan as it may have some paradoxical effect in the elderly. Start on Haldol 1 mg every 6 hours as needed for hallucinations. We will followup. I spoke to Dr. Busby and told him my recommendation.
[2019-05-12] MEDS: QUEtiapine FUMARATE 25 MG TAB PO SCH (12:35)
--- NOTE | 2019-05-12 13:28 | IPNPDOC ---
Text Note Date of Service The patient was seen on 05/12/19. NOTE SUBJECTIVE: No acute events overnight. Per the night team, patient felt less confused overnight but continued to have episodes where she would see someone who is not in the room. Her Ativan has been discontinued, psychiatry is been consulted, and some medication changes have been made to help with this delirium. She is presently conversant with me in the room and has no complaints other than that she wants to go home. OBJECTIVE: PHYSICAL EXAM: Vitals: (see below) GENERAL: Pleasant, super morbidly obese middle-aged female laying in her chair in no acute distress. HEENT: Normocephalic, atraumatic. Moist mucous membranes. EOMI. No JVP. CARDIOVASCULAR: Distant heart sounds. Tachycardia rate, Normal S1 S2, no murmurs appreciated. RESPIRATORY: Clear to auscultation bilaterally. Distant secondary to body habitus ABDOMINAL: Obese abdomen, pitting edema present. Soft nontender. EXTREMITIES: 3+ pitting edema in bilateral lower extremities. NEUROLOGICAL: No focal deficits appreciated PSYCHOLOGICAL: Appropriate LABORATORY DATA, MICROBIOLOGY: Please see below. ASSESSMENT AND PLAN: #. Acutely decompensated diastolic congestive heart failure -Reordered a BNP which has decreased 50% since 05/04 so their has been appreciable volume change since then. Diuresis held yesterday, we will continue to hold today. #. Hallucinations- Haldol ordered yesterday but stopped due to concerns about QT prolongation, patient started on seroquel today as the atypicals have less Qt prolonging effects. Psych recommendations very much appreciated. #. ESBL Klebsiella urinary tract infection:On antibiotics since 05/07, midline line placed yesterday over concerns about inability to tolerate bactrim and difficulty getting peripheral access. IV meropenem will continue until Thursday. Hopefully we will be able to put her in subacute rehab by next Thursday. #. Atrial fibrillation status post pacer with an inappropriately placed lead she will need outpatient follow-up regarding this. She is anticoagulated. We will hold her Coumadin today as she is mildly supra-therapeutic, she is mildly tachycardic but on 3 rate controlling agents amiodarone, metoprolol, and diltia zem. #. large abdominal hematoma: Stable since her last hospitalization this was secondary to Lovenox injections. She is tolerating anticoagulation well, we will continue to monitor hemoglobin likely take quite some time to resolve given its size. Continue iron supplementation. #. CAD, stable: Patient has chronically elevated troponins which have been fairly stable throughout this hospitalization she recently had a negative cardiac cath she is on a beta hanane statin and aspirin is on hold in favor of anticoagulation given her recent hematoma. We will recheck a troponin today to ensure it is trending down or at least stable, rechecked troponin is 0.12, unchanged from day prior. #. Hypertrophic cardiomyopathy status post septal myomectomy 2: Hemodynamically stable at this time #. Obstructive sleep apnea: noncompliant with CPAP, states its broken, strict compliance stressed long-term prognosis is guarded. We will attempt to see what her prescription is for her CPAP machine to see if we can get that set up or ordered for her while she is inpatient to that she has it when she is discharge. #. Dyslipidemia: Rosuvastatin 40 mg daily #. Diabetes mellitus:Insulin sliding scale, FSBS ah & qhs #. Hx of mechanical mitral valve replacement:s/p thrombosis and second mitral valve replacement with bioprosthetic valve #.Chronic kidney disease: Stable monitor while undergoing diuresis #. History of gout: Continue with allopurinol no active issue #. Asthma:Baseline and stable #. Hypertension:Controlled, Continue Furosemide diltiazem and metoprolol #. Hypothyroidism:Continue Synthroid 25mcg daily #. Restless leg syndrome: Continue Requip and Lyrica #. GERD: Continue home Protonix #. Anxiety depression: Continue Celexa and lorazepam #. Morbid obesity: Discussed bariatric surgery with patient, this should continue to be discussed as it complicates care. DVT prophylaxis: Coumadin DISPOSITION: subacute rehab after finishing IV medications VS,Fishbone, I+O VS, Fishbone, I+O Laboratory Tests 05/12/19 05:51 Red Blood Count 3.24 L, Mean Corpuscular Volume 96.3 H, Mean Corpuscular Hemoglobin 27.8, Mean Corpuscular Hemoglobin Concent 28.8 L, Red Cell Distribution Width 21.7 H, Calcium Level 8.8, Aspartate Amino Transf (AST/SGOT) 46 H, Alanine Aminotransferase (ALT/SGPT) 27, Alkaline Phosphatase 170 H, Total Bilirubin 1.0, Total Protein 7.5, Albumin 2.5 L Vital Signs Date Time Temp Pulse Resp B/P (MAP) Pulse Ox O2 Delivery O2 Flow Rate FiO2 05/12/19 09:34 104 143/81 05/12/19 06:00 97.0 22 97 2.0 I&O- Last 24 Hours up to 6 AM 05/12/19 06:00 Intake Total 1060 ml Output Total 200 ml Balance 860 ml GME ATTESTATION GME ATTESTATION My faculty preceptor for this patient encounter was physically present during the encounter and was fully available. All aspects of the patient interview, examination, medical decision making process, and medical care plan development were reviewed and approved by the faculty preceptor. The faculty preceptor is aware and concurs with the plan as stated in the body of this note and will attest to such by his/her cosignature. ATTENDING NOTE I, Sylvia Mooney, have independently examined this patient and performed my own physical exam, as well as reviewed the documentation and edited where necessary. I have discussed in detail with the resident / student the findings and plan of treatment as documented by the resident / student and edited their note. I agree with their findings and treatment plan and have edited their documentation. I will continue to follow the patient during this hospital stay. OMKAR FITCH DO May 12, 2019 13:28 SYLVIA MOONEY MD May 12, 2019 16:17
[2019-05-12 14:00] VITALS: BP 130/87
--- NOTE | 2019-05-12 17:01 | REP ---
Midline catheter insertion with Site [place] The procedure was performed under the direct supervision of Dr. Narayan. The risks and benefits of the procedure were explained to the patient and informed consent was obtained. The right basilic vein was localized using ultrasound guidance. The skin was prepped and draped in a sterile fashion. 1% lidocaine was used as a local anesthetic. Using ultrasound guidance the basilic vein was cannulated and a 0.0 a guide wire was inserted. The needle was removed and a 4.5 Mongolian dilator and peel-away sheath was inserted over the guide wire. A 4.5 Mongolian midline catheter was cut to length of 16.5 cm. The dilator was removed and the catheter was inserted over the guide wire. The peel-away sheath was removed and the catheter was flushed with heparinized saline as per Hospital protocol. The catheter was affixed to the skin and a sterile dressing was applied. The patient tolerated the procedure well and there were no immediate complications. Reviewed by DREW Lucas 05/12/2019 03:12 P Electronically Signed by Rey Narayan MD 05/12/2019 04:53 P
[2019-05-12] MEDS: ROSUVASTATIN 10 MG TAB (CRESTOR) PO SCH (18:06)
[2019-05-12] MEDS: rOPINIRole 2MG TAB PO SCH (21:59)
[2019-05-12 22:00] VITALS: BP 123/84
[2019-05-13] MEDS: MEROPENEM INJ 1 GM in APPROPRIATE DILUENT 1 EA IV SCH ×3 (02:28→18:19)
[2019-05-13] MEDS: SODIUM CHLORIDE 0.9% INJ 10 ML SYR IV PRN (03:05)
[2019-05-13] MEDS: LEVOTHYROXINE 25MCG TABLET (0.025MG) PO SCH (05:42)
[2019-05-13] MEDS: SODIUM CHLORIDE 0.9% INJ 10 ML SYR IV SCH ×2 (05:43→18:20)
[2019-05-13 06:00] VITALS: BP 133/69
[2019-05-13 06:28] LABS: INR 3.95; PROTHROMBIN TIME 38.7 SECONDS (11.8-14.0)
[2019-05-13 06:34] LABS: HEMATOCRIT 31.1 % (36.0-47.0); HEMOGLOBIN 9.1 g/dl (12.0-15.5); MEAN CORPUSCULAR HEMOGLOBIN 28.8 pg (27.0-33.0); MEAN CORPUSCULAR HGB CONC 29.3 g/dl (32.0-36.5); MEAN CORPUSCULAR VOLUME 98.4 fl (80.0-96.0); PLATELET COUNT, AUTOMATED 183 10^3/uL (150-450); RED BLOOD COUNT 3.16 10^6/uL (4.00-5.40); WHITE BLOOD COUNT 9.7 10^3/uL (4.0-10.0)
[2019-05-13 06:39] LABS: ALBUMIN 2.6 GM/DL (3.2-5.2); BILIRUBIN,TOTAL 1.3 MG/DL (0.2-1.0); CALCIUM LEVEL 9.2 MG/DL (8.5-10.1); CREATININE FOR GFR 2.33 MG/DL (0.55-1.30); GLOMERULAR FILTRATION RATE 23.1 (>51); POTASSIUM SERUM 4.4 MEQ/L (3.5-5.1); TOTAL PROTEIN 7.5 GM/DL (6.4-8.2)
[2019-05-13] MEDS: HumaLOG INSULIN (NovoLOG) PER UNIT SC SCH ×3 (07:30→17:30)
[2019-05-13] MEDS ORDERED: LEVEMIR (INSULIN DETEMIR) 1 UNITS/0.01ML SC SCH (09:00)
[2019-05-13 09:38] VITALS: BP 133/80
[2019-05-13] MEDS: FERROUS SULFATE 325MG TAB PO SCH (09:40)
[2019-05-13] MEDS: QUEtiapine FUMARATE 25 MG TAB PO SCH (09:40)
[2019-05-13] MEDS: POTASSIUM CHLORIDE 10% LIQ 20 MEQ/15 ML UDC PO SCH ×2 (09:40→21:00)
[2019-05-13] MEDS: PANTOPRAZOLE 40MG TAB (PROTONIX) PO SCH (09:41)
[2019-05-13] MEDS: AMIODARONE 200 MG TAB (PACERONE) PO SCH (09:41)
[2019-05-13] MEDS: METOPROLOL SUCC (TopROL XL) 100MG *XL* TAB PO SCH ×2 (09:41→20:59)
[2019-05-13] MEDS: MULTIVITAMINS/MINERALS THERAP 1 TAB PO SCH (09:41)
[2019-05-13] MEDS: CitaloPRAM (CeleXA) 10 MG TABLET PO SCH (09:41)
[2019-05-13] MEDS: ALLOPURINOL 100 MG TAB PO SCH (09:41)
[2019-05-13] MEDS: PREGABALIN 75 MG CAP(LYRICA) PO SCH (09:41)
[2019-05-13] MEDS: LEVEMIR (INSULIN DETEMIR) 1 UNITS/0.01ML SC SCH (09:42)
[2019-05-13] MEDS: MAGNESIUM CHLORIDE 64 MG TABCR (SLO MAG) PO SCH (09:42)
--- NOTE | 2019-05-13 10:50 | REP ---
CT of the head without contrast Indication: Left upper extremity weakness. Comparison: None Technique: Axial CT of the head was performed without contrast. Findings: There is significant motion artifact which degrades image quality and decreases the sensitivity for the detection of small lesions. The posterior fossa is poorly evaluated secondary to motion artifact and body habitus. Within these limitations, there is no gross evidence of acute intracranial hemorrhage. There is no midline shift. The basal cisterns are patent. There is no hydrocephalus. The visualized paranasal sinuses are clear. Impression: Significant motion artifact which degrades image quality and decreases the sensitivity for detection of small lesions. Within this limitation, no gross evidence of acute intracranial hemorrhage, herniation or hydrocephalus. Recommend repeat CT imaging or MRI for evaluation of stroke as clinically indicated when patient is able to better tolerate imaging examination. Electronically Signed by Donavon Lambert MD 05/13/2019 10:42 A
--- NOTE | 2019-05-13 11:08 | IPNPDOC ---
Text Note Date of Service The patient was seen on 05/13/19. NOTE SUBJECTIVE: Patient was seen and examined at the bedside. Patient is oriented 3. Still wakes up with some level of confusion. Denies any chest pain or palpitations. Denies any cough. Has been having a difficult time with physical therapy. OBJECTIVE: PHYSICAL EXAM: Vitals: (see below) GENERAL: Super morbidly obese middle-aged female laying in her bed with her eyes closed reaching up toward the ceiling. HEENT: Normocephalic, atraumatic. Moist mucous membranes. EOMI. No JVP. CARDIOVASCULAR: Distant heart sounds. Tachycardia rate, Normal S1 S2, no murmurs appreciated. RESPIRATORY: Clear to auscultation bilaterally. Distant secondary to body habitus ABDOMINAL: Obese abdomen, pitting edema present. Soft non-tender. EXTREMITIES: 3+ pitting edema in bilateral lower extremities. NEUROLOGICAL: No focal deficits appreciated PSYCHOLOGICAL: Appropriate LABORATORY DATA, MICROBIOLOGY: Please see below. ASSESSMENT AND PLAN: #. Acutely decompensated diastolic congestive heart failure -Reordered a BNP which has decreased 50% since 05/04 so their has been appreciable volume change since then. Diuresis on hold. Weight in chart is likely not accurate based on oral intake. #.Delirium- Haldol ordered based on psych recommendations but stopped due to concerns about QT prolongation, patient started on seroquel today as the atypicals have less Qt prolonging effects. Psych recommendations very much appreciated. Patient delirium has not improved after removing possible offending agents such as diuretics, ativan, and bactrim. Patient is still being covered for infection on meropenem which she was previously tolerating adequately. CT head is negative. Ammonia levels WNL. ABG showing respiratory alkalosis in the setting of diuresis. Consulting Dr. Goodman with neurology for any insight he may offer into the patient's delirium. Recommendations appreciated. #. ESBL Klebsiella urinary tract infection:On antibiotics since 05/07, midline line placed yesterday over concerns about inability to tolerate bactrim and difficulty getting peripheral access. IV meropenem will continue until Thursday. Hopefully we will be able to put her in subacute rehab by next Thursday. #. Atrial fibrillation status post pacer with an inappropriately placed lead she will need outpatient follow-up regarding this. She is anticoagulated. We will continue holding her coumadin as she is supra-therapeutic, she is mildly tachycardic but on 3 rate controlling agents amiodarone, metoprolol, and diltiazem. #. large abdominal hematoma: Stable since her last hospitalization this was s econdary to Lovenox injections. She is tolerating anticoagulation well, we will continue to monitor hemoglobin likely take quite some time to resolve given its size. Continue iron supplementation. #. CAD, stable: Patient has chronically elevated troponins which have been fairly stable throughout this hospitalization she recently had a negative cardiac cath she is on a beta hanane statin and aspirin is on hold in favor of anticoagulation given her recent hematoma. We will recheck a troponin today to ensure it is trending down or at least stable, rechecked troponin is 0.12, unchanged from day prior. #. Hypertrophic cardiomyopathy status post septal myomectomy 2: Hemodynamically stable at this time #. Obstructive sleep apnea: noncompliant with CPAP, states its broken, strict compliance stressed long-term prognosis is guarded. We will attempt to see what her prescription is for her CPAP machine to see if we can get that set up or ordered for her while she is inpatient to that she has it when she is discharge. #. Dyslipidemia: Rosuvastatin 40 mg daily #. Diabetes mellitus:Insulin sliding scale, FSBS ah & qhs #. Hx of mechanical mitral valve replacement:s/p thrombosis and second mitral valve replacement with bioprosthetic valve #.Chronic kidney disease: Stable monitor while undergoing diuresis #. History of gout: Continue with allopurinol no active issue #. Asthma:Baseline and stable #. Hypertension:Controlled, Continue Furosemide diltiazem and metoprolol #. Hypothyroidism:Continue Synthroid 25mcg daily #. Restless leg syndrome: Continue Requip and Lyrica #. GERD: Continue home Protonix #. Anxiety depression: Continue Celexa and lorazepam #. Morbid obesity: Discussed bariatric surgery with patient, this should continue to be discussed as it complicates care. DVT prophylaxis: Coumadin DISPOSITION: subacute rehab after finishing IV medications VS,Fishbone, I+O VS, Fishbone, I+O Laboratory Tests 05/13/19 06:01 Red Blood Count 3.16 L, Mean Corpuscular Volume 98.4 H, Mean Corpuscular Hemoglobin 28.8, Mean Corpuscular Hemoglobin Concent 29.3 L, Red Cell Distribution Width 22.0 H, Calcium Level 9.2, Aspartate Amino Transf (AST/SGOT) 48 H, Alanine Aminotransferase (ALT/SGPT) 27, Alkaline Phosphatase 171 H, Total Bilirubin 1.3 H, Total Protein 7.5, Albumin 2.6 L Vital Signs Date Time Temp Pulse Resp B/P (MAP) Pulse Ox O2 Delivery O2 Flow Rate FiO2 05/13/19 09:41 105 133/80 05/13/19 09:38 22 94 05/13/19 06:00 98.1 05/12/19 22:00 I&O- Last 24 Hours up to 6 AM 05/13/19 06:00 Intake Total 858 ml Output Total 400 ml Balance 458 ml GME ATTESTATION GME ATTESTATION My faculty preceptor for this patient encounter was physically present during the encounter and was fully available. All aspects of the patient interview, examination, medical decision making process, and medical care plan development were reviewed and approved by the faculty preceptor. The faculty preceptor is aware and concurs with the plan as stated in the body of this note and will attest to such by his/her cosignature. ATTENDING NOTE I, Sylvia Mooney, have independently examined this patient and performed my own physical exam, as well as reviewed the documentation and edited where necessary. I have discussed in detail with the resident / student the findings and plan of treatment as documented by the resident / student and edited their note. I agree with their findings and treatment plan and have edited their documentation. I will continue to follow the patient during this hospital stay. OMKAR FITCH DO May 13, 2019 11:08 SYLVIA MOONEY MD May 13, 2019 14:26
[2019-05-13 11:23] LABS: TROPONIN I 0.09 NG/ML (< 0.10)
[2019-05-13 13:53] LABS: MAGNESIUM LEVEL 2.5 MG/DL (1.8-2.4)
--- NOTE | 2019-05-13 16:49 | ECGEPIP ---
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
[2019-05-13] MEDS: ROSUVASTATIN 10 MG TAB (CRESTOR) PO SCH (18:20)
[2019-05-13] MEDS: rOPINIRole 1MG TAB PO SCH (20:59)
[2019-05-13 22:00] VITALS: BP 124/86
[2019-05-14] MEDS: MEROPENEM INJ 1 GM in APPROPRIATE DILUENT 1 EA IV SCH ×3 (02:32→17:55)
[2019-05-14] MEDS: SODIUM CHLORIDE 0.9% INJ 10 ML SYR IV PRN (03:12)
[2019-05-14 06:00] VITALS: BP 151/82
[2019-05-14] MEDS: SODIUM CHLORIDE 0.9% INJ 10 ML SYR IV SCH ×2 (06:04→17:55)
[2019-05-14] MEDS: LEVOTHYROXINE 25MCG TABLET (0.025MG) PO SCH (06:04)
[2019-05-14 06:29] LABS: HEMATOCRIT 31.3 % (36.0-47.0); HEMOGLOBIN 8.9 g/dl (12.0-15.5); MEAN CORPUSCULAR HEMOGLOBIN 27.9 pg (27.0-33.0); MEAN CORPUSCULAR HGB CONC 28.4 g/dl (32.0-36.5); MEAN CORPUSCULAR VOLUME 98.1 fl (80.0-96.0); PLATELET COUNT, AUTOMATED 162 10^3/uL (150-450); RED BLOOD COUNT 3.19 10^6/uL (4.00-5.40); WHITE BLOOD COUNT 8.1 10^3/uL (4.0-10.0)
[2019-05-14 06:40] LABS: INR 4.52; PROTHROMBIN TIME 43.1 SECONDS (11.8-14.0)
[2019-05-14 07:01] LABS: ALBUMIN 2.3 GM/DL (3.2-5.2); BILIRUBIN,TOTAL 1.2 MG/DL (0.2-1.0); CALCIUM LEVEL 8.9 MG/DL (8.5-10.1); CREATININE FOR GFR 2.27 MG/DL (0.55-1.30); GLOMERULAR FILTRATION RATE 23.8 (>51); POTASSIUM SERUM 4.1 MEQ/L (3.5-5.1)
[2019-05-14] MEDS: HumaLOG INSULIN (NovoLOG) PER UNIT SC SCH ×3 (07:30→17:20)
--- NOTE | 2019-05-14 08:28 | CR ---
DATE OF CONSULTATION: 05/13/2019 REFERRING PHYSICIAN: Dr. Sean Palmer REASON FOR CONSULTATION: Altered mental status and hallucinations. HISTORY OF PRESENT ILLNESS: Jennyfer Pearson is a 54-year-old woman with morbid obesity, history of hypertrophic cardiomyopathy, sleep apnea with noncompliance to CPAP diabetes, chronic kidney disease, atrial fibrillation, history of remote pulmonary embolism who was hospitalized due to vancomycin-resistant enterococci (VRE) bacteremia, abdominal hematoma. She was admitted on May 04, 2019 due to congestive heart failure and was found to have urinary tract infection. Her congestive heart failure and urinary tract infection are being treated. She continues to remained drowsy and has hallucinations. Nurses have noted her to try and catch things in the left air. She was seen by psychiatry yesterday who diagnosed her with delirium of medical cause and recommended to discontinue Ativan and start Haldol 1 mg every 6 hours as needed. Due to her cardiac history, Haldol was not started. When I saw her this evening the patient had woken up and was able to follow simple commands and able to answer questions. She knew that she is at [facility] and it was 2018. She knew it was Thursday but thought it was May in terms of month. She followed simple commands appropriately. She denied any headaches, neck or back pain. She stated that she came to hospital because she was not doing well and her health was declining. PAST MEDICAL HISTORY: Morbid obesity. Hypertrophic cardiomyopathy. Coronary artery disease. Diastolic congestive heart failure. Sleep apnea with noncompliance to CPAP. Diabetes. Chronic kidney disease. Atrial fibrillation. History of VRE bacteremia. Abdominal hematoma. CURRENT MEDICATIONS: - allopurinol 100 mg by mouth daily - amiodarone 200 mg by mouth daily - citalopram 10 mg by mouth daily - diltiazem extended release 60 mg p.o. daily - Lovenox 150 mg subcutaneous daily - ferrous sulfate 325 mg by mouth daily - Lasix 60 mg in the morning and 20 mg in the evening - insulin Levemir 10 units subcutaneous daily - levothyroxine 25 mcg by mouth daily - metoprolol 50 mg two tablets by mouth twice a day - Protonix 40 mg by mouth daily - Lyrica 75 mg by mouth daily - Requip 2 mg by mouth at bedtime - Crestor 40 mg by mouth daily - Coumadin 4 mg by mouth daily - Ativan 1 mg by mouth twice a day as needed - Zofran 4 mg by mouth every 8 hours as needed - oxycodone 5 mg by mouth three times a day as needed ALLERGIES: 1. CEPHALEXIN. 2. DOXYCYCLINE. 3. MORPHINE. 4. ZITHROMAX. 5. LIPITOR. 6. NEXIUM. 7. GUAIFENESIN. SOCIAL HISTORY: She is a former smoker. She denies alcohol or illicit drugs. FAMILY HISTORY: Noncontributory. REVIEW OF SYSTEMS All systems were reviewed and found to be noncontributory except as mentioned in the history of present illness. PHYSICAL EXAMINATION: Temperature 98.6, pulse 105, respiratory rate 22, blood pressure 133/80, 94% saturation on room air 94%. Heart irregularly irregular. Crackles are audible in bases of lungs. She is morbidly obese. She has 1+ pedal edema. No signs of meningeal irritation. No tremor or dysmetria. Gait could not be tested. The patient is awake currently and is oriented to name of president, hospital, year, day of week. She is unable to tell me exact date and name of month. She is able to follow one and two-step commands. Extraocular muscles are intact. No facial weakness. Tongue and uvula are midline. 5/5 strength in all four extremities. Deep tendon flexes are 1+ in arms and absent in legs. Normal sensation in arms. She has decreased cold pinprick vibration sensation in her feet. There is no dysmetria. DIAGNOSTIC STUDIES: CT scan of head was unremarkable, although affected by motion artifact. Creatinine was 2.33. Hemoglobin was 9.1. ALT was 48. Alkaline phosphatase was 171. ASSESSMENT: Delirium and encephalopathy likely multifactorial due to her medications, congestive heart failure and urinary tract infection. PLAN: 1. Her Ativan has been discontinued. 2. We will discontinue Lyrica and decrease Requip to 1 mg by mouth at bedtime. This will decrease the amount of her sedatives. 3. She could not be started on Haldol due to her cardiac history. She was started on Seroquel 25 mg by mouth at bedtime. She should use her CPAP for sleep apnea. 4. Check vitamin B12, vitamin B1, TSH, free T4 level, etc. 5. Consider Abilify if she becomes drowsy due to Seroquel or if it does not help. 6. CT scan of her head can be repeated if her mentation does not improve. Her first CT scan of head was affected by motion artifact.
--- NOTE | 2019-05-14 08:43 | REPVR ---
EXAM: CT Chest Without Contrast EXAM DATE/TIME: 05/14/2019 8:13 AM CLINICAL HISTORY: 54 years old, female; Shortness of breath TECHNIQUE: Imaging protocol: Computed tomography of the chest without contrast. 3D rendering: MIP reconstructed images were created and reviewed. Radiation optimization: All CT scans at this facility use at least one of these dose optimization techniques: automated exposure control; mA and/or kV adjustment per patient size (includes targeted exams where dose is matched to clinical indication); or iterative reconstruction. COMPARISON: CR PORTABLE CHEST X-RAY 05/04/2019 9:29 PM FINDINGS: Limitations: Examination limited by body habitus. Tubes, catheters and devices: There is a left sided pacemaker. Lungs: There is a band of opacity most consistent with platelike atelectasis in the left lower lobe. There is mild patchy groundglass opacity in the right lung. Reticular densities in mild peripheral consolidation are noted, mostly in the lung bases. There is elevation of the right diaphragm. Pleural space: There is pleural thickening posteriorly along the fissures in the right lung. Heart: Sternotomy wires and mediastinal surgical clips are present, consistent with previous coronary arterial bypass grafting. Mitral annulus calcifications and a prosthetic mitral valve are present. The heart is enlarged. Aorta: The aorta demonstrates mild atherosclerotic calcification. Lymph nodes: There is no gross lymphadenopathy. Bones/joints: No gross suspicious bone lesions or fractures are identified. Soft tissues: There is a midline anterior upper or abdominal wall hernia, with extension of a portion of the liver into the hernia. There is edema of the subcutaneous tissues more prominent in the right chest wall. Multiple focal calcifications are seen within the chest wall, of doubtful significance. IMPRESSION: 1. Examination limited by body habitus. 2. Several bands of opacity consistent with platelike atelectasis in both lungs. Mild groundglass opacity and peripheral mild consolidation in both lungs, probably due to incomplete expansion and atelectasis, but a mild infectious or inflammatory process is possible. 3. No significant pleural effusion but there is pleural thickening posteriorly and along the fissures in the right lung. 4. Cardiomegaly. Electronically signed by: Telma Kent On 05/14/2019 08:43:14 AM
[2019-05-14] MEDS: POTASSIUM CHLORIDE 10% LIQ 20 MEQ/15 ML UDC PO SCH ×2 (08:49→20:23)
[2019-05-14] MEDS: CitaloPRAM (CeleXA) 10 MG TABLET PO SCH (08:49)
[2019-05-14] MEDS: QUEtiapine FUMARATE 25 MG TAB PO SCH (08:50)
[2019-05-14] MEDS: AMIODARONE 200 MG TAB (PACERONE) PO SCH (08:50)
[2019-05-14] MEDS: MULTIVITAMINS/MINERALS THERAP 1 TAB PO SCH (08:50)
[2019-05-14] MEDS: PANTOPRAZOLE 40MG TAB (PROTONIX) PO SCH (08:50)
[2019-05-14] MEDS: ALLOPURINOL 100 MG TAB PO SCH (08:51)
[2019-05-14] MEDS: LEVEMIR (INSULIN DETEMIR) 1 UNITS/0.01ML SC SCH (08:51)
[2019-05-14] MEDS: MAGNESIUM CHLORIDE 64 MG TABCR (SLO MAG) PO SCH (08:51)
[2019-05-14] MEDS: FERROUS SULFATE 325MG TAB PO SCH (08:51)
[2019-05-14] MEDS: METOPROLOL SUCC (TopROL XL) 100MG *XL* TAB PO SCH ×2 (08:51→20:23)
--- NOTE | 2019-05-14 09:20 | IPNPDOC ---
Text Note Date of Service The patient was seen on 05/14/19. NOTE SUBJECTIVE: Patient examined at the bedside. Patient is oriented to name and year; she knows she is in the hospital but does not know which hospital it is. Pt said the last thing that she remember is waking up this morning. It is noted that pt had periods of confusion and alertness. Denies any fever, chills, nausea, vomiting, chest pain, palpitations, dyspnea, suprapubic pain. She stated that she is not sure if she has dysuria as she cannot recall. OBJECTIVE: PHYSICAL EXAM: GENERAL: Morbid obesity;laying in her bed appears anxious but not in acute distress HEENT: Normocephalic, atraumatic. Moist mucous membranes. No scleral icterus or conjunctival injection CARDIOVASCULAR: Distant heart sounds difficult to aus due to body habitus. Tachycardic, regular rhythm RESPIRATORY: Clear to auscultation bilaterally. Distant secondary to body habitus ABDOMINAL: Obese abdomen, Distention/hardening noted in LLQ. Other regions soft with bowel sound aus. No guarding and no tenderness to palpitation EXTREMITIES: 2+ pitting edema in bilateral lower extremities. NEUROLOGICAL: A&O to name and year; knows she is in hospital but unable to recall name of hospital. Cognitive function intact. PSYCHOLOGICAL: anxious ASSESSMENT AND PLAN: 1. Acutely decompensated diastolic congestive heart failure -BNP 2356 compared to 0 on 05/12. +2 edema noted in b/l LE -Diuresis on hold since 05/11 2. Delirium - possibly 2/2 medication side effects (Pregabalin) -On Seroquel, Haldol ordered based on psych recommendations but stopped due to concerns about QT prolongation, -Delirium appears to have improved this morning; cont to observe. Possible agents of causing delirium had been stopped including diuretics, ativan, and bactrim. -Cont to be on meropenem which she was previously tolerating adequately -CT head is negative. Ammonia levels WNL. ABG showing respiratory alkalosis in the setting of diuresis -CT noted platelike atelectasis in both lungs. Mild ground glass opacity and peripheral mild consolidation; mild infectious/inflammatory process is possible. -Per neurology recommendation from Dr. Goodman, consider Abilify if drowsy/delirium persist -Consider ordering B12, vitamin B1, TSH, free T4 3. ESBL Klebsiella urinary tract infection -On antibiotics since 05/07, midline line placed 05/12 due to possible inability to tolerate bactrim and difficulty getting peripheral access. -IV meropenem will continue until Thursday -Cont IV Meropenem 4. Atrial fibrillation status post pacer with an inappropriately placed lead - need outpatient follow-up regarding this - Pt had been on coumadin for anticoagulation. - We will continue holding her oumadin as she is supra-therapeutic - she is mildly tachycardic but on 3 rate controlling agents amiodarone, meto prolol, and diltiazem. 5. large abdominal hematoma - Stable since her last hospitalization this was secondary to Lovenox injections - Pt had been tolerating anticoagulation well, warfarin now d/c due to elevated INR - Large hematoma which may take a while resolve given its siz - F/u H&H, continue iron supplementation. 6. CAD, stable -Patient has chronically elevated troponins which have been fairly stable throughout this hospitalization -Recently negative cardiac cath; cont beta hanane statin. Hold aspirin given her recent hematoma. -elevated troponin pleateued at 0.12 7. Elevated INR. -Warfarin d/c since 05/11 -INR 4.52. Pt on amiodarone which may contribute to decreased metabolism of warfarin -Cont to f/u INR -Consider PO vitamin K if INR cont to increase 8. Hypertrophic cardiomyopathy status post septal myomectomy 2 -Cardiomegaly noted on CT chest - Hemodynamically stable at this time 9. Obstructive sleep apnea, noncompliant with CPAP -pt stated CPAP broken, strict compliance stressed long-term prognosis is guarded -will attempt ensure pt has CPAP available prior to d/c -inpt CPAP 10. Dyslipidemia. -Cont Rosuvastatin 40 mg daily 11. Diabetes mellitus -blood sugar stable -Cont insulin sliding scale, FSBS ah & qhs 12. Hx of mechanical mitral valve replacement -s/p thrombosis and second mitral valve replacement with bioprosthetic valve 13.Chronic kidney disease - Stable -F/u BMP to monitor 14. History of gout -Continue with allopurinol no active issue 15. Asthma -Baseline and stable -No dyspnea 16. Hypertension -BP roughly stable -Continue Furosemide, diltiazem and metoprolol 17. Hypothyroidism -Continue Synthroid 25mcg daily 18. Restless leg syndrome -Continue Requip and Lyrica 19. GERD -Continue home Protonix 20. Anxiety/ depression -Pt appears mildly anxious today. Continue Celexa and lorazepam 21. Morbid obesity - Discussed bariatric surgery with patient, this should continue to be discussed as it complicates care -recommended f/u outpt DVT prophylaxis: SCD and TEDS / Full anticoagulation with Coumadin DISPOSITION: subacute rehab after finishing IV medications VS,Fishbone, I+O VS, Fishbone, I+O Laboratory Tests 05/14/19 05:51 Red Blood Count 3.19 L, Mean Corpuscular Volume 98.1 H, Mean Corpuscular Hemoglobin 27.9, Mean Corpuscular Hemoglobin Concent 28.4 L, Red Cell Distribution Width 22.3 H, Calcium Level 8.9, Aspartate Amino Transf (AST/SGOT) 51 H, Alanine Aminotransferase (ALT/SGPT) 26, Alkaline Phosphatase 165 H, Total Bilirubin 1.2 H, Total Protein 7.0, Albumin 2.3 L Vital Signs Date Time Temp Pulse Resp B/P (MAP) Pulse Ox O2 Delivery O2 Flow Rate FiO2 05/14/19 08:51 99 147/82 05/14/19 06:00 98.2 23 99 2.0 I&O- Last 24 Hours up to 6 AM 05/14/19 06:00 Intake Total 766 ml Output Total 200 ml Balance 566 ml GME ATTESTATION GME ATTESTATION My faculty preceptor for this patient encounter was physically present during the encounter and was fully available. All aspects of the patient interview, examination, medical decision making process, and medical care plan development were reviewed and approved by the faculty preceptor. The faculty preceptor is aw are and concurs with the plan as stated in the body of this note and will attest to such by his/her cosignature. ATTENDING NOTE I, Sylvia Mooney, have independently examined this patient and performed my own physical exam, as well as reviewed the documentation and edited where necessary. I have discussed in detail with the resident / student the findings and plan of treatment as documented by the resident / student and edited their note. I agree with their findings and treatment plan and have edited their documentation. I will continue to follow the patient during this hospital stay. TONY BAHENA DO May 14, 2019 09:20 SYLVIA MOONEY MD May 14, 2019 14:30
[2019-05-14 14:00] VITALS: BP 115/86
[2019-05-14] MEDS: ROSUVASTATIN 10 MG TAB (CRESTOR) PO SCH (17:54)
[2019-05-14] MEDS: rOPINIRole 1MG TAB PO SCH (20:22)
[2019-05-14 22:00] VITALS: BP 149/89
[2019-05-14] MEDS: diphenhydrAMINE CREAM 30GM TOP PRN (23:13)
[2019-05-15] MEDS: MEROPENEM INJ 1 GM in APPROPRIATE DILUENT 1 EA IV SCH ×2 (02:35→10:31)
[2019-05-15 05:51] LABS: HEMATOCRIT 31.2 % (36.0-47.0); MEAN CORPUSCULAR HEMOGLOBIN 28.5 pg (27.0-33.0); MEAN CORPUSCULAR HGB CONC 28.8 g/dl (32.0-36.5); MEAN CORPUSCULAR VOLUME 98.7 fl (80.0-96.0); PLATELET COUNT, AUTOMATED 178 10^3/uL (150-450); RED BLOOD COUNT 3.16 10^6/uL (4.00-5.40); WHITE BLOOD COUNT 8.2 10^3/uL (4.0-10.0)
[2019-05-15] MEDS: LEVOTHYROXINE 25MCG TABLET (0.025MG) PO SCH (05:54)
[2019-05-15] MEDS: SODIUM CHLORIDE 0.9% INJ 10 ML SYR IV SCH ×2 (05:54→17:34)
[2019-05-15 06:00] VITALS: BP 122/89
[2019-05-15 06:03] LABS: INR 4.31; PROTHROMBIN TIME 41.5 SECONDS (11.8-14.0)
[2019-05-15 06:26] LABS: ALBUMIN 2.3 GM/DL (3.2-5.2); CALCIUM LEVEL 8.9 MG/DL (8.5-10.1); CREATININE FOR GFR 2.38 MG/DL (0.55-1.30); GLOMERULAR FILTRATION RATE 22.5 (>51); POTASSIUM SERUM 4.5 MEQ/L (3.5-5.1); TOTAL PROTEIN 6.9 GM/DL (6.4-8.2)
[2019-05-15] MEDS: HumaLOG INSULIN (NovoLOG) PER UNIT SC SCH ×3 (07:30→17:33)
[2019-05-15] MEDS: FERROUS SULFATE 325MG TAB PO SCH (09:00)
[2019-05-15] MEDS: AMIODARONE 200 MG TAB (PACERONE) PO SCH (10:29)
[2019-05-15] MEDS: METOPROLOL SUCC (TopROL XL) 100MG *XL* TAB PO SCH ×2 (10:29→20:57)
[2019-05-15] MEDS: QUEtiapine FUMARATE 25 MG TAB PO SCH (10:29)
[2019-05-15] MEDS: MULTIVITAMINS/MINERALS THERAP 1 TAB PO SCH (10:29)
[2019-05-15] MEDS: PANTOPRAZOLE 40MG TAB (PROTONIX) PO SCH (10:29)
[2019-05-15] MEDS: MAGNESIUM CHLORIDE 64 MG TABCR (SLO MAG) PO SCH (10:30)
[2019-05-15] MEDS: FUROSEMIDE 100 MG/10 ML VIAL (J1940) IV SCH ×2 (10:30→17:34)
[2019-05-15] MEDS: ALLOPURINOL 100 MG TAB PO SCH (10:30)
[2019-05-15] MEDS: CitaloPRAM (CeleXA) 10 MG TABLET PO SCH (10:30)
[2019-05-15] MEDS: POTASSIUM CHLORIDE 10% LIQ 20 MEQ/15 ML UDC PO SCH ×2 (10:30→20:56)
[2019-05-15] MEDS: LEVEMIR (INSULIN DETEMIR) 1 UNITS/0.01ML SC SCH (10:31)
--- NOTE | 2019-05-15 13:24 | IPNPDOC ---
Text Note Date of Service The patient was seen on 05/15/19. NOTE Subjective: Patient was seen and examined at the bedside. Patient reports that she's feeling better today. She denies any chest pain or palpitations. She denies cough but does report some shortness of breath. She reports that her lower extremities and her buttock region have been having pitting edema. She denies any discomfort with urination or constipation. Objective: Vitals (See below) General: Lying in bed, no acute distress, comfortable, AAOx3 HEENT: NC, AT CVS: RRR, +S1S2 Lungs: Fair air entry b/l, -w/r/r Abdomen: Soft, ND, NT, morbid obesity Extremities: 1+ pitting edema extending up to thigh and abdomen, - Calf tenderness Imaging: CT chest 05/14: 1. Examination limited by body habitus. 2. Several bands of opacity consistent with platelike atelectasis in both lungs. Mild groundglass opacity and peripheral mild consolidation in both lungs, probably due to incomplete expansion and atelectasis, but a mild infectious or inflammatory process is possible. 3. No significant pleural effusion but there is pleural thickening posteriorly and along the fissures in the right lung. 4. Cardiomegaly. CT head 05/13: Significant motion artifact which degrades image quality and decreases the sensitivity for detection of small lesions. Within this limitation, no gross evidence of acute intracranial hemorrhage, herniation or hydrocephalus. Recommend repeat CT imaging or MRI for evaluation of stroke as clinically indicated when patient is able to better tolerate imaging examination. CT abdomen / pelvis 05/05: 1. Hematoma in the left subcutaneous abdominopelvic wall is essentially unchanged in appearance and size. 2. Extensive anasarca and subcutaneous edema throughout the abdomen and pelvis (right greater than left) unchanged. 3. No new acute abdominopelvic pathology appreciated. Chronic findings as noted above remains stable. 4. Mild bibasilar atelectasis. XR 05/04: No acute cardiopulmonary process appreciated. Assessment and plan: Acutely decompensated diastolic congestive heart failure - Clinically has evidence of fluid overload - Will resume diuretic therapy - will resume Furosemide 60 IV BID - Will monitor renal function Delirium / Metabolic encephalopathy - likely 2/2 medication side effects - likely 2/2 pregabalin - Clinically has had significant improvement in his mentation - Lab work noted; no ammonia elevation, no electrolyte abnormalities, no pCO2 retention - CT Head negative (noted above) - s/p Pregabalin - Physiatry and Neurology on consultation; appreciate their input ESBL Klebsiella UTI - s/p Bactrim (re: AMS) - Will DC Meropenem A. fib - c/w Amiodarone, Cardizem and Metoprolol - INR supra-therapeutic - Coumadin on hold Large abdominal hematoma - stable since prior hospitalization - likely 2/2 Lovenox injections - Hg remains stable - Anticoagulation has been restarted - INR is supra-therapeutic - Coumadin on hold Macrocytic anemia - Hg remains stable - c/w Ferrous sulfate CAD - Recent negative cardiac catheterization - c/w Carvedilol, Coumadin Hypertrophic cardiomyopathy - s/p septal myomectomy x2 - Needs to have lead repositioning when medically stable SIGIFREDO - Non-compliant with CPAP/BIPAP for over 5 years - However this does not appear to be contributing to her current condition - ABG reviewed and does not reveal any level of pCO2 retention - Patient will need outpatient sleep study re-performed DLP - c/w Rosuvastatin DM2 - c/w ISS and Levemir Hx of mechanical mitral valve replacement - s/p thrombosis and second mitral valve replacement with bioprosthetic valve - INR is supra-therapeutic - Coumadin on hold CKD - Baseline Cr of 1.8-2.0 - Cr higher than baseline; possibly 2/2 cardiorenal etiology - Will resume diuretics Hx of Gout - c/w Allopurinol Asthma - No evidence of exacerbation - ABG noted to be without any retention of CO2 - c/w inhaled therapy as ordered HTN - c/w Furosemide (resumed today at lower dose) - c/w Diltiazem / Metoprolol Hypothyroidism - c/w Levothyroxine Neuropathy - s/p Lyrica (re: AMS) RLS - c/w Ropinirole Anxiety / Depression - c/w citalopram, quetiapine Morbid obesity - Bariatric surgery was discussed with the patient and she will follow up as an outpatient with her primary care provider - Pump getting medical care GERD - c/w Protonix DVT prophylaxis - c/w full anticoagulation with Coumadin Disposition: - Likely will need placement in to [facility] VS,Fishbone, I+O VS, Fishbone, I+O Laboratory Tests 05/15/19 05:33 Red Blood Count 3.16 L, Mean Corpuscular Volume 98.7 H, Mean Corpuscular Hemoglobin 28.5, Mean Corpuscular Hemoglobin Concent 28.8 L, Red Cell Dis tribution Width 22.0 H, Calcium Level 8.9, Aspartate Amino Transf (AST/SGOT) 71 H, Alanine Aminotransferase (ALT/SGPT) 26, Alkaline Phosphatase 181 H, Total Bilirubin 1.0, Total Protein 6.9, Albumin 2.3 L Vital Signs Date Time Temp Pulse Resp B/P (MAP) Pulse Ox O2 Delivery O2 Flow Rate FiO2 05/15/19 10:29 108 122/89 05/15/19 06:00 97.6 24 98 05/14/19 06:00 2.0 I&O- Last 24 Hours up to 6 AM 05/15/19 06:00 Intake Total 1610 ml Balance 1610 ml AJMES MOONEY MD May 15, 2019 13:24
[2019-05-15 14:00] VITALS: BP 122/86
[2019-05-15] MEDS: ROSUVASTATIN 10 MG TAB (CRESTOR) PO SCH (17:33)
[2019-05-15] MEDS: rOPINIRole 1MG TAB PO SCH (20:57)
[2019-05-15 22:00] VITALS: BP 118/80
[2019-05-15] MEDS: diphenhydrAMINE CREAM 30GM TOP PRN (23:25)
[2019-05-15 23:40] VITALS: BP 113/76
[2019-05-16] MEDS ORDERED: IPRATROPIUM 0.5MG/ALBUTEROL 2.5MG INH SOL UD 3ML (DUONEB)(J7620) NEB PRN
[2019-05-16] MEDS ORDERED: raNITIdine SYRUP 150 MG/10 ML UDC PO ONE
[2019-05-16] MEDS: diphenhydrAMINE 50 MG CAP PO PRN ×3 (00:18→21:17)
[2019-05-16 02:20] VITALS: BP 93/61
[2019-05-16] MEDS: LEVOTHYROXINE 25MCG TABLET (0.025MG) PO SCH (05:41)
[2019-05-16] MEDS: SODIUM CHLORIDE 0.9% INJ 10 ML SYR IV SCH ×2 (05:41→18:20)
[2019-05-16 06:00] VITALS: BP 92/58
[2019-05-16] MEDS: HumaLOG INSULIN (NovoLOG) PER UNIT SC SCH ×3 (07:30→17:03)
[2019-05-16] MEDS ORDERED: HYDROCORTISONE 1% CREAM 30 GM TOP PRN (07:45)
[2019-05-16 08:04] LABS: BASO # 0.1 10^3/uL (0.0-0.2); BASO % 0.7 % (0.0-1.0); EOS # 0.5 10^3/uL (0.0-0.5); EOS % 6.4 % (0.0-3.0); HEMATOCRIT 31.7 % (36.0-47.0); LYMPH # 1.1 10^3/uL (1.5-5.0); LYMPH % 14.9 % (24.0-44.0); MEAN CORPUSCULAR HEMOGLOBIN 28.1 pg (27.0-33.0); MEAN CORPUSCULAR HGB CONC 28.4 g/dl (32.0-36.5); MEAN CORPUSCULAR VOLUME 99.1 fl (80.0-96.0); MONO # 0.6 10^3/uL (0.0-0.8); MONO % 7.8 % (0.0-5.0); NEUTROPHILS # 5.1 10^3/uL (1.5-8.5); NEUTROPHILS % 69.8 % (36.0-66.0); PLATELET COUNT, AUTOMATED 156 10^3/uL (150-450); WHITE BLOOD COUNT 7.3 10^3/uL (4.0-10.0)
[2019-05-16 08:29] LABS: ALBUMIN 2.2 GM/DL (3.2-5.2); BILIRUBIN,TOTAL 0.9 MG/DL (0.2-1.0); C REACTIVE PROTEIN QUANTITATIV 4.03 MG/DL (0.00-0.30); CALCIUM LEVEL 8.6 MG/DL (8.5-10.1); CREATININE FOR GFR 2.24 MG/DL (0.55-1.30); GLOMERULAR FILTRATION RATE 24.2 (>51); MAGNESIUM LEVEL 2.1 MG/DL (1.8-2.4); POTASSIUM SERUM 4.3 MEQ/L (3.5-5.1); TOTAL PROTEIN 6.6 GM/DL (6.4-8.2)
--- NOTE | 2019-05-16 08:36 | IPNPDOC ---
Text Note Date of Service The patient was seen on 05/16/19. NOTE SUBJECTIVE: Patient examined at the bedside. Patient A&OX3; stating no urinary incontinence except when she was sleeping on the bed. Reported urinated 4 times yesterday without retention. Described b/l upper extremities and lower extremities pruritus. Reported right sided sharp abd pain. Pt stated she has some dyspnea that worsened while walking and improves while sitting up. Reported pruritus in b/l inguinal region as well. Denies any fever, chills, nausea, vomiting, chest pain, or palpitations. OBJECTIVE: PHYSICAL EXAM: GENERAL: Morbid obesity; sitting on chair HEENT: Normocephalic, atraumatic. Moist mucous membranes. No scleral icterus or conjunctival injection CARDIOVASCULAR: Distant heart sounds difficult to aus due to body habitus. Tachycardic, regular rhythm RESPIRATORY: Clear to auscultation bilaterally. Distant secondary to body habitus ABDOMINAL: Obese abdomen, Distention/hardening noted in bilateral LQ. Bowel sound difficult to aus. Rebound tenderness noted bilaterally. EXTREMITIES: 3 to 4+ pitting edema in bilateral lower extremities. NEUROLOGICAL: A&OX3 Cognitive function intact. PSYCHOLOGICAL: mildly anxious ASSESSMENT AND PLAN: 1. Acutely decompensated diastolic congestive heart failure -BNP 2287 compared to 2356 on 05/14. +3 edema noted in b/l LE -On Lasix 60mg BID IV 2. Delirium - possibly 2/2 medication side effects (Pregabalin); resolved. -Seroquel d/c as delirium resolved. Haldol initially ordered based on psych recommendations but stopped due to concerns about QT prolongation, -Delirium resolved. Possible agents of causing delirium had been stopped including diuretics, ativan, and bactrim. -Cont to be on meropenem which she was previously tolerating adequately -CT head is negative. Ammonia levels WNL. ABG showing respiratory alkalosis in the setting of diuresis -CT noted platelike atelectasis in both lungs. Mild ground glass opacity and peripheral mild consolidation; mild infectious/inflammatory process is possible. -Per neurology recommendation from Dr. Goodman, consider Abilify if drowsy/delirium persist -seroquel d/c at this time as delirium resolved 3. ESBL Klebsiella urinary tract infection -On antibiotics since 05/07, midline line placed 05/12 due to possible inability to tolerate bactrim and difficulty getting peripheral access. -IV meropenem will continue until Thursday 4. Atrial fibrillation status post pacer with an inappropriately placed lead - need outpatient follow-up regarding this - Pt had been on coumadin for anticoagulation. - We will continue holding her coumadin as she is supra-therapeutic - she is mildly tachycardic but on 3 rate controlling agents amiodarone, meto prolol, and diltiazem. - Patient has had a history of a displaced lead for pacer and will need outp atient follow-up with cardiology for further management 5. large abdominal hematoma - Stable since her last hospitalization this was secondary to Lovenox injections - Pt had been tolerating anticoagulation well, warfarin now d/c due to elevated INR - Large hematoma which may take a while resolve given its siz - F/u CBC, continue iron supplementation. 6. CAD, stable -Patient has chronically elevated troponins which have been fairly stable throughout this hospitalization -Recently negative cardiac cath; cont beta hanane statin. Hold aspirin given her recent hematoma. -elevated troponin pleateued at 0.12 7. Elevated INR, trending down -Warfarin d/c since 05/11 -INR 4.27, down from 4.52. Pt on amiodarone which may contribute to decreased metabolism of warfarin -Cont to f/u INR tmrw -Consider PO vitamin K if INR cont to increase 8. Hypertrophic cardiomyopathy status post septal myomectomy 2 -Cardiomegaly noted on CT chest - Hemodynamically stable at this time 9. Obstructive sleep apnea, noncompliant with CPAP -pt stated CPAP broken, strict compliance stressed long-term prognosis is guarded -will attempt ensure pt has CPAP available prior to d/c -inpt CPAP 10. Dyslipidemia. -Cont Rosuvastatin 40 mg daily 11. Diabetes mellitus -blood sugar stable -Cont insulin sliding scale, FSBS ah & qhs 12. Hx of mechanical mitral valve replacement -s/p thrombosis and second mitral valve replacement with bioprosthetic valve 13.Chronic kidney disease - Stable -F/u BMP to monitor 14. History of gout -Continue with allopurinol no active issue 15. Asthma -Baseline and stable -No dyspnea 16. Hypertension -Metoprolol decreased from 100mg BID to 50mg BID as blood pressure soft -Continue Furosemide and diltiazem 17. Hypothyroidism -Continue Synthroid 25mcg daily 18. Restless leg syndrome -Continue Requip and Lyrica 19. GERD -Continue home Protonix 20. Anxiety/ depression -Pt appears mildly anxious today. Continue Celexa and lorazepam 21. Morbid obesity - Discussed bariatric surgery with patient, this should continue to be discussed as it complicates care -recommended f/u outpt 2. Intertrigo -b/l inguinal intertrigo noted -Cont nystatin powder DVT prophylaxis: SCD and TEDS DISPOSITION: subacute rehab after finishing IV medications VS,Fishbone, I+O VS, Fishbone, I+O Laboratory Tests 05/16/19 07:32 Red Blood Count 3.20 L, Mean Corpuscular Volume 99.1 H, Mean Corpuscular Hemoglobin 28.1, Mean Corpuscular Hemoglobin Concent 28.4 L, Red Cell Distribution Width 21.9 H, Neutrophils (%) (Auto) 69.8 H, Lymphocytes (%) (Auto) 14.9 L, Monocytes (%) (Auto) 7.8 H, Eosinophils (%) (Auto) 6.4 H, Basophils (%) (Auto) 0.7, Neutrophils # (Auto) 5.1, Lymphocytes # (Auto) 1.1 L, Monocytes # (Auto) 0.6, Eosinophils # (Auto) 0.5, Basophils # (Auto) 0.1, Calcium Level 8.6, Aspartate Amino Transf (AST/SGOT) 56 H, Alanine Aminotransferase (ALT/SGPT) 26, Alkaline Phosphatase 187 H, Total Bilirubin 0.9, Total Protein 6.6, Albumin 2.2 L Vital Signs Date Time Temp Pulse Resp B/P (MAP) Pulse Ox O2 Delivery O2 Flow Rate FiO2 05/16/19 06:00 97.9 100 20 92/58 (69) 96 05/14/19 06:00 2.0 I&O- Last 24 Hours up to 6 AM 05/16/19 05:59 Intake Total 1080 ml Balance 1080 ml GME ATTESTATION GME ATTESTATION My faculty preceptor for this patient encounter was physically present during the encounter and was fully available. All aspects of the patient interview, examination, medical decision making process, and medical care plan development were reviewed and approved by the faculty preceptor. The faculty preceptor is aware and concurs with the plan as stated in the body of this note and will attest to such by his/her cosignature. ATTENDING NOTE I, Sylvia Mooney, have independently examined this patient and performed my own physical exam, as well as reviewed the documentation and edited where necessary. I have discussed in detail with the resident / student the findings and plan of treatment as documented by the resident / student and edited their note. I agree with their findings and treatment plan and have edited their documentation. I will continue to follow the patient during this hospital stay. INR was noted to be therapeutic today; will resume Coumadin at lower dose - 2mg TONY BAHENA DO May 16, 2019 08:36 SYLVIA MOONEY MD May 16, 2019 15:39
[2019-05-16] MEDS: FERROUS SULFATE 325MG TAB PO SCH ×2 (09:00→10:45)
[2019-05-16] MEDS: POTASSIUM CHLORIDE 10% LIQ 20 MEQ/15 ML UDC PO SCH ×2 (10:43→21:11)
[2019-05-16] MEDS: FUROSEMIDE 100 MG/10 ML VIAL (J1940) IV SCH ×2 (10:43→17:21)
[2019-05-16] MEDS: MULTIVITAMINS/MINERALS THERAP 1 TAB PO SCH (10:44)
[2019-05-16] MEDS: AMIODARONE 200 MG TAB (PACERONE) PO SCH (10:44)
[2019-05-16] MEDS: PANTOPRAZOLE 40MG TAB (PROTONIX) PO SCH (10:44)
[2019-05-16] MEDS: CitaloPRAM (CeleXA) 10 MG TABLET PO SCH (10:45)
[2019-05-16] MEDS: ALLOPURINOL 100 MG TAB PO SCH (10:45)
[2019-05-16] MEDS: METOPROLOL SUCC (TopROL XL) 50MG **XL** TAB PO SCH ×2 (10:49→21:12)
[2019-05-16] MEDS: LEVEMIR (INSULIN DETEMIR) 1 UNITS/0.01ML SC SCH (10:50)
[2019-05-16] MEDS: MAGNESIUM CHLORIDE 64 MG TABCR (SLO MAG) PO SCH (10:55)
[2019-05-16] MEDS ORDERED: ONDANSETRON 4 MG ORAL DISINTEGRATING TAB (Q0162 PER 1MG) SL PRN (12:30)
[2019-05-16 14:00] VITALS: BP 118/78
[2019-05-16 15:28] LABS: INR 2.72; PROTHROMBIN TIME 28.7 SECONDS (11.8-14.0)
[2019-05-16] MEDS ORDERED: WARFARIN SOD 2 MG TAB PO SCH (17:00)
[2019-05-16] MEDS: ROSUVASTATIN 10 MG TAB (CRESTOR) PO SCH (17:21)
[2019-05-16] MEDS: rOPINIRole 1MG TAB PO SCH (21:11)
[2019-05-16 22:00] VITALS: BP 117/65
[2019-05-17] MEDS: diphenhydrAMINE 50 MG CAP PO PRN (04:43)
[2019-05-17] MEDS: LEVOTHYROXINE 25MCG TABLET (0.025MG) PO SCH (05:32)
[2019-05-17] MEDS: SODIUM CHLORIDE 0.9% INJ 10 ML SYR IV SCH ×2 (05:33→17:07)
[2019-05-17 06:00] VITALS: BP 109/70
[2019-05-17 06:42] LABS: HEMATOCRIT 37.7 % (36.0-47.0); HEMOGLOBIN 10.5 g/dl (12.0-15.5); MEAN CORPUSCULAR HEMOGLOBIN 29.6 pg (27.0-33.0); MEAN CORPUSCULAR HGB CONC 27.9 g/dl (32.0-36.5); MEAN CORPUSCULAR VOLUME 106.2 fl (80.0-96.0); PLATELET COUNT, AUTOMATED 120 10^3/uL (150-450); RED BLOOD COUNT 3.55 10^6/uL (4.00-5.40); WHITE BLOOD COUNT 8.9 10^3/uL (4.0-10.0)
[2019-05-17 07:01] LABS: ALBUMIN 2.1 GM/DL (3.2-5.2); BILIRUBIN,TOTAL 1.1 MG/DL (0.2-1.0); CALCIUM LEVEL 8.5 MG/DL (8.5-10.1); CREATININE FOR GFR 2.17 MG/DL (0.55-1.30); GLOMERULAR FILTRATION RATE 25.1 (>51); POTASSIUM SERUM 4.8 MEQ/L (3.5-5.1)
[2019-05-17] MEDS: HumaLOG INSULIN (NovoLOG) PER UNIT SC SCH ×3 (07:30→17:07)
[2019-05-17 07:33] LABS: INR 2.28; PROTHROMBIN TIME 24.9 SECONDS (11.8-14.0)
[2019-05-17] MEDS: MULTIVITAMINS/MINERALS THERAP 1 TAB PO SCH (08:46)
[2019-05-17] MEDS: MAGNESIUM CHLORIDE 64 MG TABCR (SLO MAG) PO SCH (08:46)
[2019-05-17] MEDS: LACTOBACILLUS ACIDOPHILUS CAP (BACID) PO SCH (08:46)
[2019-05-17] MEDS: LEVEMIR (INSULIN DETEMIR) 1 UNITS/0.01ML SC SCH (08:47)
[2019-05-17] MEDS: PANTOPRAZOLE 40MG TAB (PROTONIX) PO SCH (08:47)
[2019-05-17] MEDS: POTASSIUM CHLORIDE 10% LIQ 20 MEQ/15 ML UDC PO SCH ×2 (08:48→21:09)
[2019-05-17] MEDS: FERROUS SULFATE 325MG TAB PO SCH (08:48)
[2019-05-17] MEDS: CitaloPRAM (CeleXA) 10 MG TABLET PO SCH (08:49)
[2019-05-17] MEDS: ALLOPURINOL 100 MG TAB PO SCH (08:49)
[2019-05-17] MEDS: AMIODARONE 200 MG TAB (PACERONE) PO SCH (08:49)
[2019-05-17] MEDS: FUROSEMIDE 100 MG/10 ML VIAL (J1940) IV SCH ×2 (08:49→17:03)
[2019-05-17] MEDS: METOPROLOL SUCC (TopROL XL) 50MG **XL** TAB PO SCH ×2 (08:49→21:09)
--- NOTE | 2019-05-17 08:49 | IPNPDOC ---
Text Note Date of Service The patient was seen on 05/17/19. NOTE SUBJECTIVE: Patient examined in the chair. Patient denied any urinary incontinence but stating that she has been having loose stoolsX6 yesterday. Described b/l upper extremities and lower extremities pruritus that improves with benadryl; she stated that her right breast is getting tender and more swelling. Right sided sharp abd pain. Reported improving of dyspnea; alleviating factor includes sitting up and aggravating factor including activity and laying down. Stating the pruritus in b/l inguinal region resolved. Denies any fever, chills, nausea, vomiting, chest pain, or palpitations. OBJECTIVE: PHYSICAL EXAM: GENERAL: Morbid obesity; sitting on chair. Not in acute distress HEENT: Normocephalic, atraumatic. Moist mucous membranes. No scleral icterus or conjunctival injection CARDIOVASCULAR: Distant heart sounds difficult to aus due to body habitus. Tachycardic, regular rhythm RESPIRATORY: Clear to auscultation bilaterally. Distant secondary to body habitus ABDOMINAL: Obese abdomen, Distention/hardening noted in bilateral LQ slightly improving compared to yesterday. Bowel sound difficult to aus. Rebound tenderness noted bilaterally. EXTREMITIES: 2+ pitting edema in bilateral lower extremities. NEUROLOGICAL: A&OX3 Cognitive function intact. PSYCHOLOGICAL: stable ASSESSMENT AND PLAN: 1. Acutely decompensated diastolic congestive heart failure -05/16 BNP 2287 compared to 2356 on 05/14. +2 edema noted in b/l LE -On Lasix 60mg BID IV 2. ESBL Klebsiella urinary tract infection -S/p antibiotics 05/07 to 05/15, midline line placed 05/12 due to possible inability to tolerate bactrim and difficulty getting peripheral access. -Denies any urinary symptoms including urgency, frequency, dysuria, or distention 3. Atrial fibrillation status post pacer with an inappropriately placed lead - need outpatient follow-up regarding this - Pt had been on coumadin for anticoagulation. Coumadin restarted 05/16 at 2mg due to INR 2.72; today 2.28. Increase to 2.5mg QD - she is mildly tachycardic but on 3 rate controlling agents amiodarone, metoprolol, and diltiazem. - Patient has had a history of a displaced lead for pacer and will need outpatient follow-up with cardiology for further management 4. large abdominal hematoma - Stable since her last hospitalization this was secondary to Lovenox injections - Pt had been tolerating anticoagulation well; warfarin restarted due to INR 2.72. - Large hematoma which may take a while resolve given its size - Hg improving; cont to f/u with CBC and continue iron supplementation. 5. CAD, stable -Patient has chronically elevated troponins which have been fairly stable throughout this hospitalization -Recently negative cardiac cath; cont beta hanane and statin. Restart Aspirin -elevated troponin pleateued at 0.12 6. Chronic anticoagulant use for atrial fibrillation -Warfarin d/c since 05/11 as it was supratherapeutic -INR 2.28 compared to 2.72 yesterday. Warfarin increased from 2mg to 2.5mg. Pt on amiodarone which may contribute to decreased metabolism of warfarin -Cont to f/u INR tmrw 8. Hypertrophic cardiomyopathy status post septal myomectomy 2 -Cardiomegaly noted on CT chest - Hemodynamically stable at this time 9. Dyslipidemia. -Cont Rosuvastatin 40 mg daily 10. Diabetes mellitus -blood sugar stable -Cont insulin sliding scale, FSBS ah & qhs 11. Hx of mechanical mitral valve replacement -s/p thrombosis and second mitral valve replacement with bioprosthetic valve 12.Chronic kidney disease - Stable -F/u BMP to monitor 13. History of gout -Continue with allopurinol no active issue 14. Asthma -Baseline and stable -No dyspnea 15. Hypertension -Metoprolol decreased from 100mg BID to 50mg BID as blood pressure soft -Continue Furosemide and diltiazem 16. Hypothyroidism -Continue Synthroid 25mcg daily 17. Restless leg syndrome -Continue Requip and Lyrica 18. GERD -Continue home Protonix 19. Anxiety/ depression -Pt appears mildly anxious today. Continue Celexa and lorazepam 20. Morbid obesity - Discussed bariatric surgery with patient, this should continue to be discussed as it complicates care -recommended f/u outpt 21. Cutaneous candidiasis -b/l inguinal intertrigo improving; cutaneous candidiasis also noted under breast region -Cont nystatin powder DVT prophylaxis: SCD and TEDS DISPOSITION: discharge to rehab when stable; pending clinical improvement. Increase warfarin following up INR I saw and evaluated the patient. I agree with the findings and plan of care as documented in the above note VS,Jenna, I+O VS, Jenna, I+O Laboratory Tests 05/17/19 06:29 Red Blood Count 3.55 L, Mean Corpuscular Volume 106.2 H, Mean Corpuscular Hemoglobin 29.6, Mean Corpuscular Hemoglobin Concent 27.9 L, Red Cell Distribu tion Width 22.0 H, Calcium Level 8.5, Aspartate Amino Transf (AST/SGOT) 84 H, Alanine Aminotransferase (ALT/SGPT) 33, Alkaline Phosphatase 173 H, Total Bilirubin 1.1 H, Total Protein 7.0, Albumin 2.1 L Vital Signs Date Time Temp Pulse Resp B/P (MAP) Pulse Ox O2 Delivery O2 Flow Rate FiO2 05/17/19 06:00 96.6 104 20 109/70 (83) 98 05/14/19 06:00 2.0 I&O- Last 24 Hours up to 6 AM 05/17/19 06:00 Intake Total 1250 ml Output Total 0 ml Balance 1250 ml TONY BAHENA DO May 17, 2019 08:49 RADHA NEWTON MD May 17, 2019 12:11
[2019-05-17 14:00] VITALS: BP 108/69
[2019-05-17] MEDS ORDERED: LORazepam 1 MG TAB PO STA (15:23)
[2019-05-17] MEDS: ROSUVASTATIN 10 MG TAB (CRESTOR) PO SCH (17:06)
[2019-05-17] MEDS: WARFARIN SOD 2.5 MG TAB PO SCH (17:06)
[2019-05-17] MEDS: SODIUM CHLORIDE 0.9% INJ 10 ML SYR IV PRN (18:06)
[2019-05-17] MEDS: rOPINIRole 1MG TAB PO SCH (21:08)
[2019-05-17] MEDS: VANICREAM MOISTURIZING SKIN CREAM 113GM TUBE TOP SCH (21:16)
[2019-05-17 22:00] VITALS: BP 112/74
[2019-05-18] MEDS: LEVOTHYROXINE 25MCG TABLET (0.025MG) PO SCH (05:49)
[2019-05-18] MEDS: SODIUM CHLORIDE 0.9% INJ 10 ML SYR IV SCH ×2 (05:49→17:14)
[2019-05-18 06:00] VITALS: BP 107/65
[2019-05-18 07:25] LABS: ALBUMIN 2.4 GM/DL (3.2-5.2); CREATININE FOR GFR 2.04 MG/DL (0.55-1.30); GLOMERULAR FILTRATION RATE 26.9 (>51); POTASSIUM SERUM 4.7 MEQ/L (3.5-5.1); TOTAL PROTEIN 7.4 GM/DL (6.4-8.2)
[2019-05-18] MEDS: HumaLOG INSULIN (NovoLOG) PER UNIT SC SCH ×3 (07:30→17:14)
[2019-05-18 08:08] LABS: HEMATOCRIT 32.7 % (36.0-47.0); HEMOGLOBIN 9.1 g/dl (12.0-15.5); MEAN CORPUSCULAR HEMOGLOBIN 27.6 pg (27.0-33.0); MEAN CORPUSCULAR HGB CONC 27.8 g/dl (32.0-36.5); MEAN CORPUSCULAR VOLUME 99.1 fl (80.0-96.0); PLATELET COUNT, AUTOMATED 171 10^3/uL (150-450); WHITE BLOOD COUNT 9.1 10^3/uL (4.0-10.0)
[2019-05-18 08:19] LABS: INR 2.52
[2019-05-18] MEDS: FERROUS SULFATE 325MG TAB PO SCH (09:00)
[2019-05-18] MEDS: POTASSIUM CHLORIDE 10% LIQ 20 MEQ/15 ML UDC PO SCH ×2 (10:02→21:42)
[2019-05-18] MEDS: MAGNESIUM CHLORIDE 64 MG TABCR (SLO MAG) PO SCH (10:02)
[2019-05-18] MEDS: FUROSEMIDE 100 MG/10 ML VIAL (J1940) IV SCH ×2 (10:02→17:00)
[2019-05-18] MEDS: LACTOBACILLUS ACIDOPHILUS CAP (BACID) PO SCH (10:02)
[2019-05-18] MEDS: ASPIRIN 81 MG CHEW TABLET PEG SCH (10:02)
[2019-05-18] MEDS: AMIODARONE 200 MG TAB (PACERONE) PO SCH (10:03)
[2019-05-18] MEDS: PANTOPRAZOLE 40MG TAB (PROTONIX) PO SCH (10:03)
[2019-05-18] MEDS: ALLOPURINOL 100 MG TAB PO SCH (10:03)
[2019-05-18] MEDS: CitaloPRAM (CeleXA) 10 MG TABLET PO SCH (10:03)
[2019-05-18] MEDS: MULTIVITAMINS/MINERALS THERAP 1 TAB PO SCH (10:05)
[2019-05-18] MEDS: METOPROLOL SUCC (TopROL XL) 50MG **XL** TAB PO SCH ×2 (10:05→21:43)
[2019-05-18] MEDS: VANICREAM MOISTURIZING SKIN CREAM 113GM TUBE TOP SCH ×2 (10:06→21:41)
--- NOTE | 2019-05-18 10:26 | ECGEPIP ---
[facility] Test Date: 2019-05-17 Pat Name: ABHI BARCLAY Department: Room: [place] [address] Gender: Female Tag Stringer: CYN : 1965 Requested By: ROCK VILLARREAL Order Number: [id number] Reading MD: Aneudy Ross Measurements Intervals [place] Rate: 103 P: -5 MS: 275 QRS: -8 QRSD: 164 T: 170 QT: 422 QTc: 555 Interpretive Statements Uncertain Regular tachycardia LEFT ATRIAL ENLARGEMENT LEFT BUNDLE BRANCH BLOCK Electronically Signed on 05-18-2019 10:26:07 EDT by Aneudy Ross
[2019-05-18 14:00] VITALS: BP 127/86
--- NOTE | 2019-05-18 17:11 | IPNPDOC ---
Text Note Date of Service The patient was seen on 05/18/19. NOTE SUBJECTIVE: Patient examined on bed today. It was noted that pt was reporting chest pain and stating that she was anxious because her son got arrested, thus Ativan 1 time dose was ordered. Later evening pt reported 7/10 chest pain decreased to 3/10 after Ativan; pt was observed to be sitting on chair talking on the phone yesterday afternoon. It was noted that she had some hallucination yesterday evening that she was seeing shadows of little animal in the room. ROS difficult to be obtained as pt was waking up from sleep/having confusion. Pt thought there was a ghost in the room. Pt was originally A&O to name only; upon re-orientation and feeding apple juice and pudding she was able to answer the year, location, and name correctly. OBJECTIVE: PHYSICAL EXAM: GENERAL: Morbid obesity. On bed. Appears to be confused/waking up from sleep HEENT: Normocephalic, atraumatic. Moist mucous membranes. No scleral icterus or conjunctival injection CARDIOVASCULAR: Distant heart sounds difficult to aus due to body habitus. Tachycardic, regular rhythm RESPIRATORY: Clear to auscultation bilaterally. Distant secondary to body habitus ABDOMINAL: Obese abdomen, Distention/hardening noted in bilateral LQ. Bowel sound difficult to aus. EXTREMITIES: 1-2+ pitting edema in bilateral lower extremities. NEUROLOGICAL: A&OX3. Appears to be confused/waking up from sleep ASSESSMENT AND PLAN: 1. Acutely decompensated diastolic congestive heart failure -B/l leg edema 1-2+ -05/16 BNP 2287 compared to 2356 on 05/14. +2 edema noted in b/l LE -Cont Lasix 60mg BID IV 2. ESBL Klebsiella urinary tract infection -S/p antibiotics 05/07 to 05/15, midline line placed 05/12 due to possible inability to tolerate bactrim and difficulty getting peripheral access. -Denies any urinary symptoms including urgency, frequency, dysuria, or distention yesterday, no info was able to be obtained today 3. Atrial fibrillation status post pacer with an inappropriately placed lead - need outpatient follow-up regarding this - Pt had been on coumadin for anticoagulation. Coumadin restarted 05/16/19 at 2mg due to INR 2.72. Increase to 2.5mg QD 05/17/19; INR therapeutic range; cont to f/u - she is mildly tachycardic but on 3 rate controlling agents amiodarone, metoprolol, and diltiazem. - Patient has had a history of a displaced lead for pacer and will need outpatient follow-up with cardiology for further management 4. large abdominal hematoma - Stable since her last hospitalization this was secondary to Lovenox injections - Pt had been tolerating anticoagulation well; warfarin restarted 05/16/19 due to INR 2.72. - Large hematoma which may take a while resolve given its size - Hg improving; cont to f/u with CBC and continue iron supplementation. 5. Chronic CAD -Patient has chronically elevated troponins and chronic intermittent chest pain -Recently negative cardiac cath; cont beta hanane and statin. Cont Aspirin -Pt had a period of chest pain yesterday which was likely 2/2 anxiety; later evening pt reported 7/10 chest pain decreased to 3/10 after Ativan -elevated troponin initially pleateued at 0.12. Repeat trop 0.10 6. Chronic anticoagulant use for atrial fibrillation -Warfarin d/c since 05/11 as it was supratherapeutic -INR within therapeutic range. Cont Warfarin 2.5mg. Pt on amiodarone which may contribute to decreased metabolism of warfarin -Cont to f/u INR tmrw 7. Hallucination -likely adverse effect d/t Ativan vs low blood glucose vs psychosis -appears to be improving -Pt CKD thus requires longer time to excrete Ativan metabolites. -Mental status improving after feeding pt apple juice and pudding. Levemir 2 units daily d/c. -Cont to monitor pt's mental status. This morning pt confused but A&OX3 after re-orientation -Fall precaution and seizure precaution 8. Hypertrophic cardiomyopathy status post septal myomectomy 2 -Cardiomegaly noted on CT chest - Hemodynamically stable at this time 9. Dyslipidemia. -Cont Rosuvastatin 40 mg daily 10. Diabetes mellitus -Blood glucose 80 yesterday evening and 94 this morning -D/C levemir 2 units daily -Cont insulin sliding scale, FSBS ah & qhs 11. Hx of mechanical mitral valve replacement -s/p thrombosis and second mitral valve replacement with bioprosthetic valve 12.Chronic kidney disease - Stable -F/u BMP to monitor 13. History of gout -Continue with allopurinol no active issue 14. Asthma -Baseline and stable -No dyspnea 15. Hypertension -Metoprolol decreased from 100mg BID to 50mg BID as blood pressure soft -Continue Furosemide and diltiazem 16. Hypothyroidism -Continue Synthroid 25mcg daily 17. Restless leg syndrome -Continue Requip and Lyrica 18. GERD -Continue home Protonix 19. Anxiety/ depression -Pt appears mildly anxious today. Continue Celexa and lorazepam 20. Morbid obesity - Discussed bariatric surgery with patient, this should continue to be discussed as it complicates care -recommended f/u outpt 21. Cutaneous candidiasis -b/l inguinal intertrigo improving; cutaneous candidiasis also noted under breast region -Cont nystatin powder DVT prophylaxis: SCD and TEDS DISPOSITION: discharge to rehab when stable. I saw and evaluated the patient. I agree with the findings and plan of care as documented in the above note VSJenna, I+O VSJenna, I+O Laboratory Tests 05/18/19 06:00 Calcium Level 9.0, Aspartate Amino Transf (AST/SGOT) 66 H, Alanine Aminotransferase (ALT/SGPT) 30, Alkaline Phosphatase 184 H, Total Bilirubin 1.0, Total Protein 7.4, Albumin 2.4 L 05/18/19 07:06 Red Blood Count 3.30 L, Mean Corpuscular Volume 99.1 H, Mean Corpuscular Hemoglobin 27.6, Mean Corpuscular Hemoglobin Concent 27.8 L, Red Cell Distribution Width 21.1 H Vital Signs Date Time Temp Pulse Resp B/P (MAP) Pulse Ox O2 Delivery O2 Flow Rate FiO2 05/18/19 14:00 98.1 100 19 127/86 (100) 98 05/14/19 06:00 2.0 I&O- Last 24 Hours up to 6 AM 05/18/19 06:00 Intake Total 1100 ml Balance 1100 ml TONY BAHENA DO May 18, 2019 17:11 RADHA NEWTON MD May 19, 2019 11:32
[2019-05-18] MEDS: WARFARIN SOD 2.5 MG TAB PO SCH (17:14)
[2019-05-18] MEDS: ROSUVASTATIN 10 MG TAB (CRESTOR) PO SCH (17:14)
[2019-05-18] MEDS: rOPINIRole 1MG TAB PO SCH (21:42)
[2019-05-18 22:00] VITALS: BP 129/83
[2019-05-18] MEDS: diphenhydrAMINE CREAM 30GM TOP PRN (22:02)
[2019-05-18] MEDS: diphenhydrAMINE 50 MG CAP PO PRN (22:47)
[2019-05-19] MEDS: SODIUM CHLORIDE 0.9% INJ 10 ML SYR IV SCH (05:39)
[2019-05-19] MEDS: LEVOTHYROXINE 25MCG TABLET (0.025MG) PO SCH (05:39)
[2019-05-19 06:00] VITALS: BP 102/75
[2019-05-19 06:39] LABS: HEMATOCRIT 30.1 % (36.0-47.0); HEMOGLOBIN 8.7 g/dl (12.0-15.5); MEAN CORPUSCULAR HEMOGLOBIN 28.2 pg (27.0-33.0); MEAN CORPUSCULAR HGB CONC 28.9 g/dl (32.0-36.5); MEAN CORPUSCULAR VOLUME 97.7 fl (80.0-96.0); PLATELET COUNT, AUTOMATED 152 10^3/uL (150-450); RED BLOOD COUNT 3.08 10^6/uL (4.00-5.40); WHITE BLOOD COUNT 7.5 10^3/uL (4.0-10.0)
[2019-05-19 06:48] LABS: INR 3.07; PROTHROMBIN TIME 31.6 SECONDS (11.8-14.0)
[2019-05-19 07:11] LABS: ALBUMIN 2.2 GM/DL (3.2-5.2); BILIRUBIN,TOTAL 1.1 MG/DL (0.2-1.0); CALCIUM LEVEL 8.5 MG/DL (8.5-10.1); CREATININE FOR GFR 1.87 MG/DL (0.55-1.30); GLOMERULAR FILTRATION RATE 29.8 (>51); TOTAL PROTEIN 6.7 GM/DL (6.4-8.2)
[2019-05-19] MEDS: HumaLOG INSULIN (NovoLOG) PER UNIT SC SCH (07:30)
[2019-05-19] MEDS: MAGNESIUM CHLORIDE 64 MG TABCR (SLO MAG) PO SCH (08:59)
[2019-05-19] MEDS: POTASSIUM CHLORIDE 10% LIQ 20 MEQ/15 ML UDC PO SCH (08:59)
[2019-05-19 09:00] VITALS: BP 107/68
[2019-05-19] MEDS: METOPROLOL SUCC (TopROL XL) 50MG **XL** TAB PO SCH (09:00)
[2019-05-19] MEDS: FUROSEMIDE 100 MG/10 ML VIAL (J1940) IV SCH (09:00)
[2019-05-19] MEDS: CitaloPRAM (CeleXA) 10 MG TABLET PO SCH (09:00)
[2019-05-19] MEDS: FERROUS SULFATE 325MG TAB PO SCH (09:01)
[2019-05-19] MEDS: PANTOPRAZOLE 40MG TAB (PROTONIX) PO SCH (09:01)
[2019-05-19] MEDS: AMIODARONE 200 MG TAB (PACERONE) PO SCH (09:01)
[2019-05-19] MEDS: LACTOBACILLUS ACIDOPHILUS CAP (BACID) PO SCH (09:01)
[2019-05-19] MEDS: ALLOPURINOL 100 MG TAB PO SCH (09:01)
[2019-05-19] MEDS: ASPIRIN 81 MG CHEW TABLET PEG SCH (09:01)
[2019-05-19] MEDS: MULTIVITAMINS/MINERALS THERAP 1 TAB PO SCH (09:01)
[2019-05-19] MEDS: VANICREAM MOISTURIZING SKIN CREAM 113GM TUBE TOP SCH (09:03)
[2019-05-19] MEDS: diphenhydrAMINE 50 MG CAP PO PRN (09:56)
--- NOTE | 2019-05-19 10:19 | IPNPDOC ---
Text Note Date of Service The patient was seen on 05/19/19. NOTE SUBJECTIVE: Patient examined on bed today. It was noted that the confusion had resolved. She reported right sided lateral breast pain and left sided abdominal pain. Pt reported the under breast region and inguinal region has been less pruritic. Denies any dyspnea, chest pain, or palpitation. OBJECTIVE: PHYSICAL EXAM: GENERAL: Morbid obesity. On bed on the phone talking, not in acute distress. HEENT: Normocephalic, atraumatic. Moist mucous membranes. No scleral icterus or conjunctival injection CARDIOVASCULAR: Distant heart sounds difficult to aus due to body habitus. T achycardic, regular rhythm RESPIRATORY: Clear to auscultation bilaterally. Distant secondary to body habitus ABDOMINAL: Obese abdomen. Appears to be in pain upon palpation of her abdomen in all quadrants however pt denies tenderness. B/l lower abdomen distention/hardening worse on left. Bowel sound difficult to aus. EXTREMITIES: 1-2+ pitting edema in bilateral lower extremities. NEUROLOGICAL: A&OX3. Appears to be confused/waking up from sleep ASSESSMENT AND PLAN: 1. Acutely decompensated diastolic congestive heart failure -B/l leg edema 1-2+. Dependent edema in her left breast. -05/16 BNP 2287 compared to 2356 on 05/14. +2 edema noted in b/l LE -Cont Lasix 60mg BID IV 2. ESBL Klebsiella urinary tract infection -S/p antibiotics 05/07 to 05/15, midline line placed 05/12 due to possible inability to tolerate bactrim and difficulty getting peripheral access. -Denies any urinary symptoms including urgency, frequency, dysuria, or distention yesterday, no info was able to be obtained today 3. Atrial fibrillation status post pacer with an inappropriately placed lead - need outpatient follow-up regarding this - Pt had been on coumadin for anticoagulation. Coumadin restarted 05/16/19 at 2mg due to INR 2.72. Increase to 2.5mg QD 05/17/19; INR now supratherapeutic; now on 2mg. - she is mildly tachycardic but on 3 rate controlling agents amiodarone, metoprolol, and diltiazem. - Patient has had a history of a displaced lead for pacer and will need outpatient follow-up with cardiology for further management 4. large abdominal hematoma - Stable since her last hospitalization this was secondary to Lovenox injections - Pt had been tolerating anticoagulation well; warfarin restarted 05/16/19 due to INR 2.72. - Large hematoma which may take a while resolve given its size - Hg improving; cont to f/u with CBC and continue iron supplementation. 5. Chronic CAD -Patient has chronically elevated troponins and chronic intermittent chest pain -Recently negative cardiac cath; cont beta hanane and statin. Cont Aspirin -Pt had a period of chest pain yesterday which was likely 2/2 anxiety; later evening pt reported 7/10 chest pain decreased to 3/10 after Ativan -elevated troponin initially pleateued at 0.12. Repeat trop 0.10 6. Chronic anticoagulant use for atrial fibrillation -Warfarin d/c since 05/11 as it was supratherapeutic -INR within therapeutic range. Cont Warfarin 2.5mg. Pt on amiodarone which may contribute to decreased metabolism of warfarin -Cont to f/u INR tmrw 7. Hallucination -likely adverse effect d/t Ativan vs low blood glucose vs psychosis -appears to be improving -Pt CKD thus requires longer time to excrete Ativan metabolites. -Mental status improving after feeding pt apple juice and pudding. Levemir 2 units daily d/c. -Cont to monitor pt's mental status. This morning pt confused but A&OX3 after re-orientation -Fall precaution and seizure precaution 8. Hypertrophic cardiomyopathy status post septal myomectomy 2 -Cardiomegaly noted on CT chest - Hemodynamically stable at this time 9. Dyslipidemia. -Cont Rosuvastatin 40 mg daily 10. Diabetes mellitus -Blood glucose 80 yesterday evening and 94 this morning -D/C levemir 2 units daily -Cont insulin sliding scale, FSBS ah & qhs 11. Hx of mechanical mitral valve replacement -s/p thrombosis and second mitral valve replacement with bioprosthetic valve 12.Chronic kidney disease - Stable -F/u BMP to monitor 13. History of gout -Continue with allopurinol no active issue 14. Asthma -Baseline and stable -No dyspnea 15. Hypertension -Metoprolol decreased from 100mg BID to 50mg BID as blood pressure soft -Continue Furosemide and diltiazem 16. Hypothyroidism -Continue Synthroid 25mcg daily 17. Restless leg syndrome -Continue Requip and Lyrica 18. GERD -Continue home Protonix 19. Anxiety/ depression -Pt appears mildly anxious today. Continue Celexa and lorazepam 20. Morbid obesity - Discussed bariatric surgery with patient, this should continue to be discussed as it complicates care -recommended f/u outpt 21. Cutaneous candidiasis -b/l inguinal intertrigo improving; cutaneous candidiasis also noted under breast region -Cont nystatin powder DVT prophylaxis: SCD and TEDS VS,Fishbone, I+O VS, Fishbone, I+O Laboratory Tests 05/19/19 06:21 Red Blood Count 3.08 L, Mean Corpuscular Volume 97.7 H, Mean Corpuscular Hemoglobin 28.2, Mean Corpuscular Hemoglobin Concent 28.9 L, Red Cell Distribution Width 21.1 H, Calcium Level 8.5, Aspartate Amino Transf (AST/SGOT) 48 H, Alanine Aminotransferase (ALT/SGPT) 25, Alkaline Phosphatase 163 H, Total Bilirubin 1.1 H, Total Protein 6.7, Albumin 2.2 L Vital Signs Date Time Temp Pulse Resp B/P (MAP) Pulse Ox O2 Delivery O2 Flow Rate FiO2 05/19/19 09:00 70 107/68 05/19/19 06:00 97.7 20 91 05/14/19 06:00 2.0 I&O- Last 24 Hours up to 6 AM 05/19/19 06:00 Intake Total 1120 ml Balance 1120 ml TONY BAHENA DO May 19, 2019 10:19
[2019-05-19] MEDS ORDERED: RISATAB3 PO (10:48)
[2019-05-19] MEDS ORDERED: METO1TAB7 PO (10:48)
[2019-05-19] MEDS ORDERED: VANI1CRE5 TOP (10:48)
[2019-05-19] MEDS ORDERED: COUM2TAB22 PO (10:48)
[2019-05-19] MEDS ORDERED: DIPHCR TOP (10:48)
[2019-05-19] MEDS ORDERED: ROPI1TAB PO (10:55)
--- NOTE | 2019-05-19 11:08 | DS.PDOC ---
Discharge Summary General Date of Admission May 04, 2019 at 19:58 Date of Discharge 05/19/19 Discharge Summary PROCEDURES PERFORMED DURING STAY: Midline placement ADMITTING DIAGNOSES: 1. acute on chronic diastolic chf 2. CKD 3. SIGIFREDO 4. DM 5. A. fib 6. Anemia/hematoma 7. Abdominal pain DISCHARGE DIAGNOSES: 1. Acutely decompensated diastolic congestive heart failure 2. ESBL Klebsiella urinary tract infection 3. Atrial fibrillation status post pacer with an inappropriately placed lead 4. large abdominal hematoma 5. Chronic CAD 6. Chronic anticoagulant use for atrial fibrillation 7. Hallucination, resolved 8. Hypertrophic cardiomyopathy status post septal myomectomy 2 9. Dyslipidemia. 10. Diabetes mellitus 11. Hx of mechanical mitral valve replacement 12.Chronic kidney disease 13. History of gout 14. Asthma 15. Hypertension 16. Hypothyroidism 17. Restless leg syndrome 18. GERD 19. Anxiety/ depression 20. Morbid obesity 21. Cutaneous candidiasis COMPLICATIONS/CHIEF COMPLAINT: CHF. HISTORY OF PRESENT ILLNESS: 54 yo female with PMH of morbid obesity, CAD, hypertrophic cardiomyopathy s/p m yomectomy, diastolic chf, DM, CKD, bMVR, asthma, hypothyroid, afib, ppm with displaced lead, remote provoked pe, recent admission with vre bacteremia, and abdominal hematoma who presented due to abdominal pain, fluid retention, and difficulty ambulating as a transfer from OSH. It was noted that she has apparently gained 12 lbs since discharge. HOSPITAL COURSE: Pt was determined to have uncompensated CHF; and was started on iv diuresis, salt restriction, and daily weights. She was also found to have UTI with Klebsiella, and bacteremia was noted which may be due to contamination. Pt received antibiotics for her UTI. It was noted that pt had been having intermittent chest pain which she reported to be chronic, but troponins had been stable/baseline. The urinary retention that she initially reported having requiring bladder scan and straight cath PRN gradually resolve. Pt was noted to have delirium/hallucination when she was started on Bactrim; psych was consulted and recommended stopping Ativan and starting haloperidol PRN. Midline was placed and pt was re-started on Meeropenem. Haldol was later stopped due to concerns about QT prolongation and Risperidol was subsequently started. Neurology was consulted and recommended d/c Lyrica and decrease Requip to 1 mg. Pt's symptoms gradually improve and that her hallucination had resolved. Her INR initially became supratherapeutic and warfarin was adjusted; she is determined to be on Warfarin 2mg/daily. Called Dr. Dumont's office and it was noted pt's non-compliant with cardiology but current INR range recommended to be within 2-3. DISCHARGE MEDICATIONS: Please see below. ALLERGIES: Please see below. PHYSICAL EXAMINATION ON DISCHARGE: VITAL SIGNS: Please see below. PHYSICAL EXAM: GENERAL: Morbid obesity. On bed on the phone talking, not in acute distress. HEENT: Normocephalic, atraumatic. Moist mucous membranes. No scleral icterus or conjunctival injection CARDIOVASCULAR: Distant heart sounds difficult to aus due to body habitus. Tachycardic, regular rhythm RESPIRATORY: Clear to auscultation bilaterally. Distant secondary to body habitus ABDOMINAL: Obese abdomen. Appears to be in pain upon palpation of her abdomen in all quadrants however pt denies tenderness. B/l lower abdomen distention/hardening worse on left. Bowel sound difficult to aus. EXTREMITIES: 1-2+ pitting edema in bilateral lower extremities. NEUROLOGICAL: Cognitive function appears intact LABORATORY DATA: Please see below. IMAGING: CXR no acute abnormality. Abd/pelvis CT showed hematoma in the left subcutaneous abdominopelvic wall unchanged in appearance and size; extensive anasarca and subcutaneous edema in abd/pelvis (right greater than left) unchanged. Mild bibasilar atelectasis. Head CT limited study but no acute abnormality Chest CT showed several bands of opacity in both lungs. Mild groundglass opacity with peripheral mild consolidation in both lungs. Cardiomegaly. PROGNOSIS: Fair ACTIVITY: As tolerated/ Per subacute rehab. DIET: 2g Na diet with fluid restriction 1500ml/day DISCHARGE PLAN AND INSTRUCTION: Pt will be discharged to subacute rehab. Follow up with provider at the rehab, and follow up with cardiology outpatient as scheduled. Patient will take medication as changed/prescribed. ITEMS TO FOLLOWUP ON ON OUTPATIENT: 1. Abdominal hematoma 2. Inappropriately placed pacemaker leads 3. Anticoagulant use/INR 4. Cutaneous candidiasis 5. Dependent edema/CHF DISCHARGE CONDITION: Stable. I saw and evaluated the patient. I agree with the findings and plan of care as documented in the documenters note. I spent 45 minutes coordinating this patient's discharge. Vital Signs/I&Os Vital Signs Date Time Temp Pulse Resp B/P (MAP) Pulse Ox O2 Delivery O2 Flow Rate FiO2 05/19/19 09:00 70 107/68 05/19/19 06:00 97.7 20 91 05/14/19 06:00 2.0 I&O- Last 24 Hours up to 6 AM 05/19/19 05:59 Intake Total 1120 ml Balance 1120 ml Laboratory Data Labs 24H Laboratory Tests 2 05/18/19 11:53: Bedside Glucose (Misc Panel) 132H 05/18/19 16:54: Bedside Glucose (Misc Panel) 97 05/18/19 20:24: Bedside Glucose (Misc Panel) 121H 05/19/19 06:21: Nucleated Red Blood Cells % (auto) 0.0, Prothrombin Time 31.6H, Prothromb Time International Ratio 3.07, Anion Gap 6L, Glomerular Filtration Rate 29.8L, Blood Urea Nitrogen 20H, Creatinine 1.87H, Sodium Level 141, Potassium Level 4.0, Chloride Level 106, Carbon Dioxide Level 29, Calcium Level 8.5, Aspartate Amino Transf (AST/SGOT) 48H, Alanine Aminotransferase (ALT/SGPT) 25, Alkaline Phosphatase 163H, Total Bilirubin 1.1H, Total Protein 6.7, Albumin 2.2L, Albumin/Globulin Ratio 0.49L CBC/BMP Laboratory Tests 05/19/19 06:21 Red Blood Count 3.08 L, Mean Corpuscular Volume 97.7 H, Mean Corpuscular Hemoglobin 28.2, Mean Corpuscular Hemoglobin Concent 28.9 L, Red Cell Distribution Width 21.1 H, Calcium Level 8.5, Aspartate Amino Transf (AST/SGOT) 48 H, Alanine Aminotransferase (ALT/SGPT) 25, Alkaline Phosphatase 163 H, Total Bilirubin 1.1 H, Total Protein 6.7, Albumin 2.2 L FSBS Laboratory Tests Test 05/18/19 11:53 05/18/19 16:54 05/18/19 20:24 Range/Units Bedside Glucose (Misc Panel) 132 97 121 70-105 MG/DL Discharge Medications Scheduled Allopurinol (Allopurinol) 100 Mg Tablet, 100 MG PO DAILY, (Reported) Amiodarone HCl (Amiodarone HCl) 200 Mg Tablet, 200 MG PO DAILY, (Reported) Citalopram Hydrobromide (Celexa) 10 Mg Tablet, 10 MG PO DAILY, (Reported) Diltiazem HCl (Diltiazem 12Hr ER) 60 Mg Cap.er.12h, 60 MG PO DAILY, (Reported) Emollient Base (Vanicream) 453 Gm Cream..g., 0 DOSE TOP BID Enoxaparin Sodium (Lovenox) 150 Mg/1 Ml Syringe, 150 MG SC DAILY, (Reported) Ferrous Sulfate (Ferrous Sulfate) 325 Mg Tablet, 325 MG PO DAILY, (Reported) Furosemide (Furosemide) 40 Mg Tablet, 60 MG PO BID L. Acidophilus/Pectin, [place] (Acidophilus Caplet) 1 Each Tablet, 1 TAB PO DAILY, (Reported) L.acidoph/L.bulg/B.bif/S.therm (Becky-Bid Caplet) 1 Each Tablet, 1 EA PO DAILY Levothyroxine Sodium (Levothyroxine Sodium) 25 Mcg Tablet, 25 MCG PO DAILY, (Reported) Metoprolol Succinate (Metoprolol Succinate) 50 Mg Tab.er.24h, 50 MG PO BID Multivitamins (Thera M Plus Tablet) 1 Each Tablet, 1 TAB PO DAILY, (Reported) Nystatin (Nystatin Powder) 15 Gm Powder, 1 APPLIC TOP BID, (Reported) APPLY TO FOLDS OF SKIN Pantoprazole Sodium (Pantoprazole Sodium) 40 Mg Tablet.dr, 40 MG PO DAILY, (Reported) Ropinirole HCl (Ropinirole HCl) 1 Mg Tablet, 1 MG PO QHS Rosuvastatin Calcium (Rosuvastatin Calcium) 40 Mg Tablet, 40 MG PO DAILY, (Reported) Warfarin Sodium (Coumadin) 2 Mg Tablet, 2 MG PO DAILY@17 Scheduled PRN Albuterol Sulfate (Ventolin Hfa) 18 Gm Hfa.aer.ad, 2 PUFF INH Q4H PRN for SHORTNESS OF BREATH, (Reported) Cyclobenzaprine HCl (Cyclobenzaprine HCl) 10 Mg Tablet, 10 MG PO TID PRN for M USCLE SPASMS, (Reported) Diphenhydramine HCl (Itch Relief Cream) 28 Gm Cream..g., 0 DOSE TOP DAILYPRN PRN for ITCHING Hydrocortisone (Hydrocortisone) 1% 28GM Cream..g., 1 APLCT TOP BID PRN for ITCHING, (Reported) APPLY TO AFFECTED AREA(S) Ondansetron (Ondansetron Odt) 4 Mg Tab.rapdis, 4 MG PO Q8H PRN for NAUSEA OR VOMITING, (Reported) Allergies Coded Allergies: azithromycin (Verified Allergy, Intermediate, HIVES, 04/08/19) cephalexin (Verified Allergy, Intermediate, HIVES, 04/08/19) doxycycline (Verified Allergy, Intermediate, HIVES, 04/08/19) morphine (Verified Allergy, Intermediate, HIVES, 04/08/19) atorvastatin (Verified Allergy, Unknown, 04/08/19) esomeprazole (Verified Allergy, Unknown, 04/08/19) guaifenesin (Verified Allergy, Unknown, MUCINEX, 04/08/19) TONY BAHENA DO May 19, 2019 11:08 RADHA NEWTON MD May 20, 2019 09:46
[2019-05-19] MEDS ORDERED: FURO40TA2 PO (11:35)
[2019-05-19] MEDS ORDERED: WARFARIN SOD 2 MG TAB PO SCH (17:00)
== END 2019-05-19 12:04 | DRG 291 ==
LOC: EEVIPCON 19:58 → M MSPAV 19:58
PROVIDERS: ADMIT Hospitalist; ATTEND Internal Medicine
PROC: 05HB33Z Insertion of Infusion Device into Right Basilic Vein, Percutaneous Approach (ICD-10-PCS; principal; 2019-05-11 15:00)
DX: I13.0 Hypertensive heart and chronic kidney disease with heart failure and stage 1 through stage 4 chronic kidney disease, or unspecified chronic kidney disease (principal); I50.33 Acute on chronic diastolic (congestive) heart failure; G92 Toxic encephalopathy; N18.4 Chronic kidney disease, stage 4 (severe); N39.0 Urinary tract infection, site not specified; Z68.45 Body mass index [BMI] 70 or greater, adult; F05 Delirium due to known physiological condition; I42.2 Other hypertrophic cardiomyopathy; E66.01 Morbid (severe) obesity due to excess calories; G47.33 Obstructive sleep apnea (adult) (pediatric); E11.22 Type 2 diabetes mellitus with diabetic chronic kidney disease; B96.1 Klebsiella pneumoniae [K. pneumoniae] as the cause of diseases classified elsewhere; I25.10 Atherosclerotic heart disease of native coronary artery without angina pectoris; E03.9 Hypothyroidism, unspecified; D50.0 Iron deficiency anemia secondary to blood loss (chronic); I48.91 Unspecified atrial fibrillation; M10.9 Gout, unspecified; F32.9 Major depressive disorder, single episode, unspecified; M79.81 Nontraumatic hematoma of soft tissue; K21.9 Gastro-esophageal reflux disease without esophagitis; R44.1 Visual hallucinations; B37.2 Candidiasis of skin and nail; T43.8X5A Adverse effect of other psychotropic drugs, initial encounter; G25.81 Restless legs syndrome; Z95.0 Presence of cardiac pacemaker; Z86.711 Personal history of pulmonary embolism; Z91.19 Patient's noncompliance with other medical treatment and regimen; Z79.4 Long term (current) use of insulin; Z79.01 Long term (current) use of anticoagulants; Z79.899 Other long term (current) drug therapy; Z88.1 Allergy status to other antibiotic agents; Z88.8 Allergy status to other drugs, medicaments and biological substances; Z95.3 Presence of xenogenic heart valve